=== PATIENT | female | born 1950 | race Caucasian/White ===

== ENCOUNTER 2016-07-21 14:47 | Outpatient (CLI) | payer MEDICARE ==
[~2016-07-21] VITALS: Ht 165.1 cm; Wt 107.0 kg
[~2016-07-21 14:47] MED LIST: ALPR1TAB72 PO; ALPR2TAB2 PO; ASPI-875 PO; BNZ10T PO; CITA-105 PO; ESTR1TAB24 PO; GBPN300C PO; HYDR-3583 PO; LOVA20TA2 PO; METO10TA3 PO; NTR.4SL SL; ZLP10T PO
[2016-07-21 14:53] VITALS: BP 118/72
== END 2016-07-21 15:02 | disposition home or self-care (01) ==
LOC: PREOP 14:47
PROVIDERS: ATTEND Urology
DX: Z01.818 Encounter for other preprocedural examination (principal); Z11.2 Encounter for screening for other bacterial diseases; N36.42 Intrinsic sphincter deficiency (ISD); R32 Unspecified urinary incontinence; N32.81 Overactive bladder
CPT/HCPCS: 87081

== ENCOUNTER 2016-07-30 06:25 | Day surgery (SDC) | payer MEDICARE ==
[~2016-07-30] VITALS: Ht 165.1 cm; Wt 107.0 kg
[2016-07-30] MEDS ORDERED: LACTATED RINGERS 1,000 ML IV PRN (06:36)
[2016-07-30] MEDS ORDERED: FAMOTIDINE 20MG/2ML IV (PEPCID) IV ONE (06:45)
[2016-07-30] MEDS ORDERED: proPOfol 200 MG/20 ML (DIPRIVAN) VIAL IV ONE (06:46)
[2016-07-30] MEDS ORDERED: ONDANSETRON 4 MG/2 ML (SDV) Z0FRAN ONE (06:46)
[2016-07-30] MEDS ORDERED: LIDOCAINE PF 2% 10 ML (XYLOCAINE) AMP ONE (06:46)
[2016-07-30] MEDS ORDERED: LIDOCAINE JELLY 2% (XYLOCAINE) 5 ML TUBE ONE (06:46)
[2016-07-30] MEDS ORDERED: ROCURONIUM 50 MG/5 ML (ZEMURON) VIAL IV ONE (06:46)
[2016-07-30] MEDS ORDERED: fentaNYL INJECTION 100 MCG/2 ML AMP ONE (06:47)
[2016-07-30] MEDS ORDERED: MIDAZOLAM 2 MG/2 ML (VERSED) VIAL ONE (06:47)
[2016-07-30] MEDS ORDERED: NS (IVPB) 50 ML ONE (06:48)
[2016-07-30] MEDS ORDERED: cefTRIAXone 1 GM (ROCEPHIN) VIAL ONE (06:48)
--- NOTE | 2016-07-30 07:05 | Progress Note-Pre Operative ---
Pre-Operative Progress Note H&P Reviewed The H&P was reviewed, patient examined and no changes noted. Date H&P Reviewed: Jul 30, 2016 Time H&P Reviewed: 07:05 Pre-Operative Diagnosis: MIXED INCONTINENCE, OAB, ISD MARTHA FORRESTER MD Jul 30, 2016 7:05 am
--- NOTE | 2016-07-30 07:06 | Progress Note-Post Operative ---
Post-Operative Progess Note Surgeon (s)/Chute Operator (s) Surgeon MARTHA FORRESTER MD Chute Operator: N/A Pre-Operative Diagnosis MIXED INCONTINENCE, OAB, ISD Post-Operative Diagnosis SAME Post-Op Procedure Note Date of Procedure: Jul 30, 2016 Name of Procedure Performed: MACROPLASTIQUE IMPLANT Description of the Procedure: PER DICTATION Findings of the Procedure SAME Anesthesia Type GENERAL Estimated blood loss (mL): NEGLIGIBLE Specimen(s) collected/removed NONE MARTHA FORRESTER MD Jul 30, 2016 7:06 am
--- NOTE | 2016-07-30 07:08 | Discharge Inst-Urology ---
Discharge Inst-Urology Discharge Medications New, Converted, or Re-newed RX: RX on Chart Patient Instructions/Follow Up Plan Please make appointment to been seen in office in 4 weeks. If in 48hrs, no bleeding, may resume ASA Increase oral fluids for 48 hours and then as needed. Diet and Activity as tolerated. If questions or concerns contact your physician Or seek help at emergency department. MARTHA FORRESTER MD Jul 30, 2016 7:08 am
[2016-07-30] MEDS ORDERED: cefTRIAXone 1 GM/NS 50 ML IVPB IV ONE ×2 (07:15)
[2016-07-30] MEDS ORDERED: SEVOFLURANE (ULTANE) 15 ML INHAL SOLN ONE (07:29)
[2016-07-30 07:44] VITALS: BP 135/73
[2016-07-30] MEDS ORDERED: ONDANSETRON 4 MG/2 ML (SDV) Z0FRAN IVP PRN (07:45)
[2016-07-30] MEDS ORDERED: morphine INJ 10 MG/ML 1ML (SYR OR VIAL) IVP PRN (07:45)
[2016-07-30 08:40] VITALS: BP 142/73
[2016-07-30 09:10] VITALS: BP 135/73
[2016-07-30] MEDS ORDERED: NITR-65 PO (09:37)
[2016-07-30] MEDS ORDERED: PHEN-640 PO (09:37)
[2016-07-30 09:40] VITALS: BP 142/69
--- NOTE | 2016-07-30 11:22 | OPERATIVE REPORT ---
PROCEDURE PHYSICIAN: MARTHA FORRESTER DATE OF PROCEDURE: 07/30/2016 PREOPERATIVE DIAGNOSIS: Urinary incontinence with overactive bladder and ISD. POSTOPERATIVE DIAGNOSIS: Urinary incontinence with overactive bladder and ISD. OPERATION: Macroplastique implant. SURGEON: Lexx. ANESTHESIA: General. COMPLICATIONS: None. PROCEDURE: Under satisfactory general anesthesia, the patient in lithotomy position, the genitalia were prepped and draped in usual sterile fashion. Cystoscope was introduced under vision and the Macroplastique implant was injected with a full syringe at 6 o'clock position and half a syringe at each of 2 and 10 o'clock positions. There was excellent coaptation of the mid urethra with no extravasation of the implant and no bleeding; it was injected using the described technique. The bladder was evacuated and cystoscope was removed. The patient tolerated the procedure and anesthesia well and was sent to recovery room in stable condition. Job ID: [id number] Dictated Date: 07/30/2016 07:40:22 Box Toe Cutter Date: 07/30/2016 11:20:02 / chuck
== END 2016-07-30 09:57 | disposition home or self-care (01) ==
LOC: SDC 06:25
PROVIDERS: ATTEND Urology
DX: N36.42 Intrinsic sphincter deficiency (ISD) (principal); R32 Unspecified urinary incontinence; N32.81 Overactive bladder

== ENCOUNTER 2016-11-05 05:40 | Outpatient (CLI) | payer MEDICARE ==
[~2016-11-05] VITALS: Ht 165.1 cm; Wt 98.4 kg
[~2016-11-05 05:40] MED LIST changes: +NITR-65 PO; +PHEN-640 PO
[2016-11-05] MEDS ORDERED: CITA20TA7 PO (13:32)
[2016-11-05] MEDS ORDERED: ALPR1TAB7 PO (13:32)
[2016-11-05] MEDS ORDERED: PANT40TA3 PO (13:32)
== END 2016-11-05 14:35 ==
LOC: PREOP 05:40
PROVIDERS: ATTEND Surgery
DX: Z01.818 Encounter for other preprocedural examination (principal); R19.4 Change in bowel habit; R63.4 Abnormal weight loss

== ENCOUNTER 2016-11-07 12:17 | Day surgery (SDC) | payer MEDICARE ==
[~2016-11-07] VITALS: Ht 165.1 cm; Wt 98.4 kg
[~2016-11-07 12:17] MED LIST changes: +ALPR1TAB7 PO; +CITA20TA7 PO; +PANT40TA3 PO
[2016-11-07] MEDS ORDERED: NS IV 500 ML 500 ML ONE ×2 (12:18→13:08)
[2016-11-07] MEDS ORDERED: NS IV 500 ML 500 ML IV PRN (12:30)
--- NOTE | 2016-11-07 12:36 | Progress Note-Pre Operative ---
Pre-Operative Progress Note H&P Reviewed The H&P was reviewed, patient examined and no changes noted. Date Seen by Provider: Nov 07, 2016 Time Seen by Provider: 12:00 Date H&P Reviewed: Nov 07, 2016 Time H&P Reviewed: 12:00 Pre-Operative Diagnosis: weight loss, GERD WAYNE AVILA MD Nov 07, 2016 12:36 pm
--- NOTE | 2016-11-07 12:36 | Conscious Sedation/ASA ---
Conscious Sedation Pre-Proced Time Reviewed: 12:00 ASA Class: 2 Airway Mallampati Classification: ([place] appropriate class) I. II. III, IV Lungs Heart ASA score ASA 1: a normal healthy patient ASA 2: a patient with a mild systemic disease (mid diabetes, controlled hypertension, obesity ASA 3: a patient with a severe systemic disease that limits activity (angina , COPD, prior Myocardial infarction) ASA 4: a patient with an incapacitating disease that is a constant threat to life (CHF, renal failure) ASA 5: a moribund patient not expected to survive 24 hrs. (ruptured aneurysm) ASA 6: a declared brain patient whose organs are being harvested. For emergent operations, add the letter E after the classification Grade 3 Sedation Plan: Analgesia, Amnesia, Plan communicated to team members, Discussed options with patient/fam, Discussed risks with patient/fam Note The patient is an appropriate candidate to undergo the planned procedure, sedation, and anesthesia. The patient immediately re-assessed prior to indication. WAYNE AVILA MD Nov 07, 2016 12:36 pm
[2016-11-07] MEDS ORDERED: fentaNYL INJECTION 100 MCG/2 ML AMP ONE ×2 (12:41)
[2016-11-07] MEDS ORDERED: LIDOCAINE JELLY 2% (XYLOCAINE) 5 ML TUBE ONE (12:41)
[2016-11-07] MEDS ORDERED: MIDAZOLAM 2 MG/2 ML (VERSED) VIAL ONE ×6 (12:42)
[2016-11-07] MEDS ORDERED: HURRICAINE EXT TUBE (BENZOCAINE) ONE (12:42)
[2016-11-07] MEDS ORDERED: HURRICAINE EXT TUBE (BENZOCAINE) XX PRN (12:45)
[2016-11-07] MEDS ORDERED: morphine INJ 10 MG/ML 1ML (SYR OR VIAL) IV PRN (12:45)
[2016-11-07] MEDS ORDERED: HYDROcodone/APAP 5 MG/325 MG (LORTAB) TAB PO PRN (12:45)
[2016-11-07] MEDS ORDERED: ACETAMINOPHEN 325 MG TABLET/CAPLET (TYLENOL) PO PRN (12:45)
[2016-11-07] MEDS ORDERED: ONDANSETRON 4 MG/2 ML (SDV) Z0FRAN IV PRN (12:45)
[2016-11-07] MEDS ORDERED: LIDOCAINE JELLY 2% (XYLOCAINE) 5 ML TUBE MM PRN (12:45)
[2016-11-07] MEDS: MIDAZOLAM 2 MG/2 ML (VERSED) VIAL IVP PRN ×3 (12:50→13:05)
[2016-11-07] MEDS: fentaNYL INJECTION 100 MCG/2 ML AMP IVP PRN ×4 (12:51→13:10)
[2016-11-07 13:09] VITALS: BP 138/90
--- NOTE | 2016-11-07 13:45 | Progress Note-Post Operative ---
Post-Operative Progess Note Surgeon (s)/Briar Wood Sorter (s) Surgeon WAYNE AVILA MD Briar Wood Sorter: none Pre-Operative Diagnosis weight loss, GERD Post-Operative Diagnosis esophageal varices, reflux eosphagitis(class B), gastric pouchitis, bile reflux, normal gastro-enteric anastomosis, no distal obstructions. chronic stage 2 ext and int hemorrhoids, moderate sigmoid diverticulosis, proximal colonic-enteric anastomosis vs. fistula. Procedure & Operative Findings Date of Procedure 11/07/16 Procedure Performed/Findings EGD with bx. Colonoscopy. Anesthesia Type CS Estimated Blood Loss Estimated blood loss (mL): minimal Specimens/Packing Specimens Removed GE jxn, antrum WAYNE AVILA MD Nov 07, 2016 13:45
[2016-11-07] MEDS ORDERED: CHOL4PAC16 PO (13:48)
--- NOTE | 2016-11-07 13:49 | Discharge Inst-Surgical ---
D/C Lap Instructions-KIDO New, Converted, or Re-Newed RX: RX on Chart Follow Up PRN Activity as tolerated High Fiber Diet 25g or more per day Avoid Alcohol, Caffeine, Spicy [place] and Acid foods. Drink 64 fluid oz or more of fluids per day. Symptoms to Report: Fever over 101 degree F, Nausea/Vomiting If any problems/questions: Contact your physician or go to Emergency Room WAYNE AVILA MD Nov 07, 2016 13:49
[2016-11-07 13:50] VITALS: BP 173/84
[2016-11-07 14:20] VITALS: BP 173/84
[2016-11-07 14:30] VITALS: BP 173/84
--- NOTE | 2016-11-10 07:51 | PROCEDURE REPORT ---
PROCEDURE PHYSICIAN: WAYNE LOPEZ DATE OF PROCEDURE: 11/07/2016 PRIMARY PHYSICIAN: Dr. Colton Santos. PRINCIPAL DIAGNOSIS: Gastroesophageal reflux disease, weight loss. POSTOPERATIVE DIAGNOSES: 1. Esophageal varices. 2. Reflux esophagitis, class B. 3. Gastric pouchitis gastritis. 4. Normal gastrojejunal anastomosis with no stricture. 5. Chronic, stage II external and internal hemorrhoids. 6. Moderate sigmoid diverticulosis. 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 PROCEDURE: 1. EGD with biopsy. 2. Colonoscopy. SURGEON: Dr. Lopez. ANESTHESIA: Conscious sedation. ESTIMATED BLOOD LOSS: Minimal. FINDINGS: 1. Esophageal varices of the mid portion of the esophagus. 2. Reflux esophagitis, class B. 3. No ulcers or strictures. 4. Relatively large gastric pouch with a gastric pouchitis, no formal ulcers, gastrojejunal anastomosis appeared normal. There appeared to be bile reflux during the procedure, which may indicate a bile acid gastritis and reflux esophagitis. The efferent rim appeared to be widely patent with no marginal ulcerations or strictures. COLONOSCOPY: 1. Chronic, stage II external and internal hemorrhoids, not actively edematous or inflamed and no bleeding. 2. Moderate sigmoid diverticulosis with no signs of diverticulitis. 3. There its coloenteric anastomosis, which may have been from her previous Timoteo shunt in the . However, this could also be abnormal fistulization. DISPOSITION: The patient tolerated procedure well. BRIEF HISTORY: Ms. Teresa Arevalo is a 66-year-old female referred over to us for change in bowel habits including weight loss, abdominal pain, reflux and regurgitation. She has had gastrointestinal issues for some amount of time however, this has worsened in the past 6 weeks. She had the Timoteo shunt in [place], [place] in the and we are unsure what the procedure was. We do know that this was an open procedure and she states that she did lose a significant amount weight; however, did regained some weight back over time. She reports that she has had a long-standing history of reflux soon after the surgery. She does not report any red blood per rectum or any dark tarry stools. However has had looser stools in the past several months. PAST MEDICAL HISTORY: 1. Coronary artery disease. 2. Depression. 3. Gastroesophageal reflux disease. 4. Hypertension. 5. Hyperlipidemia. 6. Nephrolithiasis. 7. Chronic low back pain. 8. Short-term memory loss. PAST SURGERIES: 1. Timoteo shunt early . 2. Complete hysterectomy. 3. Laparoscopic cholecystectomy 1989. 4. Bladder sling. 5. Small bowel resection for bowel obstruction 5 years ago. ALLERGIES: TETRACYCLINE MEDICATIONS: 1. Zopitan 10 mg daily. 2. Xanax 1 mg b.i.d. 3. Citalopram 40 mg daily. 4. Lovastatin 20 mg daily. 5. Benazepril 10 mg daily. 6. Estradiol 1 mg daily. 7. Protonix 40 mg daily. SOCIAL HISTORY: Negative smoke. Negative alcohol. FAMILY HISTORY: Mother, insulin-dependent diabetes and myocardial infarction age 72, father hypertension and prostate cancer, myocardial infarction age 50, sister diabetes, hypertension. Brother diabetes, stroke in his 60s, myocardial infarction age 55. PROCEDURE: The patient was brought to the endoscopy suite, laid in the left lateral decubitus position. After adequate IV pain and sedative medications and conscious sedation anesthesia, the mouthpiece was applied. The endoscope was placed in the mouth, visualizing the pharynx and hypopharyngeal region. Vocal cords, epiglottis and vallecula identified to be normal. The endoscope was then gently intubated the esophageal opening and the esophagus insufflated. There appeared to be mild to moderate varices of the midportion as well as distal portion of the esophagus. No active bleeding identified. The GE junction appeared to be intact with reflux esophagitis, class B. There were no ulcers or strictures identified in this region, as well as no varices in this region. A biopsy was taken with forceps with visualization of good hemostasis. The endoscope was then advanced into the gastric pouch where significantly larger gastric polyps identified. There was also pouch gastritis; however, no formal ulcers identified. The gastrojejunal anastomosis was widely patent with no marginal ulcerations and this was intubated with no distal obstructions. During the process of there was a significant amount of bile reflux into the gastric pouch, which may indicate bile acid gastritis and reflux esophagitis. A biopsy was taken of the stomach antrum, with forceps with visualization of good hemostasis. The endoscope was then slowly withdrawn while taking a second look and suctioning of residual air with no additional findings. The patient tolerated this portion the procedure well. We will have her continue with medical management with the necessary lifestyle and diet accommodation including smaller, more frequent meals, avoidance of eating at night, as well as head elevation while laying supine. She also needs to avoid caffeinated beverages, spicy, greasy and acidic foods. We will instruct to have her continue her Protonix, however, appears that she does have a bile acid gastritis. We are unsure of the previous Timoteo shunt procedure; however, it appears if her symptoms persist she will need some form of Alison-en-Y anastomosis. Under the same conscious sedation anesthesia, we then proceeded with the colonoscopy portion the procedure. A digital rectal examination was performed, which revealed chronic, stage II external and internal hemorrhoids which were not actively edematous or inflamed and no bleeding. Normal sphincter tone was felt and there were no palpable masses. The endoscope was then intubated into the anus and the rectum gently insufflated. The endoscope was then advanced through the valves of [place] the rectum with no polyps or any neoplasms identified. We then proceeded through the sigmoid colon where a moderate sigmoid diverticulosis identified. There were no mucosal inflammatory changes to indicate any active diverticulitis. The endoscope was then advanced through the remainder of the descending, transverse, and ascending colon to the cecum. Just proximal to the cecum along the ascending colon was what appeared to be some form of gastro-enteric anastomosis. This may have been due to her previous Timoteo's shunt procedure, however she did have some form of small bowel obstruction requiring resection and anastomosis that may be related to a drainage procedure to this. Due to her only comorbidities, as well as multiple major surgeries we will recommend conservative management for now with recommendation of smaller, more frequent meals and avoidance of eating at night, as well as a high fiber diet with at least 25 to 30 grams of fiber per day to promote soft stools on a daily basis. We will also schedule an upper GI contrast study to map out her upper gastrointestinal anatomy, which we are unsure of at this time. Job ID: [id number] Dictated Date: 11/07/2016 13:37:18 Customs Import Specialist Date: 11/10/2016 07:22:13 / chuck [email or web address]
== END 2016-11-07 14:30 | disposition home or self-care (01) ==
LOC: ENDO 12:17
PROVIDERS: ATTEND Surgery
DX: K57.30 Diverticulosis of large intestine without perforation or abscess without bleeding (principal); K63.2 Fistula of intestine; K64.1 Second degree hemorrhoids; K21.0 Gastro-esophageal reflux disease with esophagitis; I85.00 Esophageal varices without bleeding; K91.850 Pouchitis; K29.70 Gastritis, unspecified, without bleeding; K31.7 Polyp of stomach and duodenum; I25.10 Atherosclerotic heart disease of native coronary artery without angina pectoris; F32.9 Major depressive disorder, single episode, unspecified; I10 Essential (primary) hypertension; E78.5 Hyperlipidemia, unspecified; Z79.899 Other long term (current) drug therapy

== ENCOUNTER → 2016-11-18 | Outpatient (CLI) | payer MEDICARE ==
[~2016-11-18] MED LIST changes: +BARIUM SUSPENSION 105% (LIQUID POLIBAR PLUS) 240 ML/DOSE PO ONE; +BARIUM SUSPENSION 60% (LIQUID EZ PAQUE) 240 ML DOSE PO ONE; +CHOL4PAC16 PO
--- NOTE | 2016-11-18 12:49 | Diagnostic Imaging Report ---
EXAMINATION: Upper GI study with small bowel follow-through, double contrast. TECHNIQUE: A channel development director image of the abdomen was performed. After the oral administration of gas forming granules, the patient drank thick and thin barium with visualization under fluoroscopy including spot images taken over the esophagus, stomach, and duodenum followed by overhead images in the chest and abdomen. Serial images of the small bowel were performed at different time intervals as contrast reached the colon. INDICATION: Weight loss. FLUOROSCOPY TIME: 1 minutes and 32 seconds. FINDINGS: Screw Machine Operator images of the abdomen demonstrate a small amount of fecal material. Surgical sutures are also seen. The esophagus is normal in caliber. There are mild occasional tertiary contractions and slight peristaltic dysfunction, compatible with mild motility disorder, commonly seen at the patient's age. There is no suspicious filling defect or evidence of ulcer. The stomach demonstrates prior gastrojejunostomy. The barium appears to preferentially initially fill the gastrojejunostomy; however, it also freely extends into the distal stomach and eventually fills and distends the stomach. The proximal duodenum is also seen and appears normal. There is a normal appearance of the small bowel loops seen with the appearance of filling of the cecum at 1 hour and 15 minutes after initial drinking of the barium. There is no suspicious filling defect or evidence of ulcer. IMPRESSION: Mild esophageal motility dysfunction. Patent gastrojejunostomy. Dictated by: Dictated on workstation # [id number]
== END ==
LOC: RAD 08:30
PROVIDERS: ATTEND Surgery
DX: R19.7 Diarrhea, unspecified (principal); K21.9 Gastro-esophageal reflux disease without esophagitis; R63.4 Abnormal weight loss; Z98.0 Intestinal bypass and anastomosis status
CPT/HCPCS: 74249

== ENCOUNTER → 2017-02-12 | Outpatient (CLI) | payer MEDICARE ==
[~2017-02-12] MED LIST changes: -BARIUM SUSPENSION 105% (LIQUID POLIBAR PLUS) 240 ML/DOSE PO ONE; -BARIUM SUSPENSION 60% (LIQUID EZ PAQUE) 240 ML DOSE PO ONE
--- NOTE | 2017-02-12 13:52 | Diagnostic Imaging Report ---
Bilateral diagnostic mammogram with tomography. CAD is utilized. INDICATION: Lateral right breast pain. COMPARISON: 07/06/2014. FINDINGS: The breasts are composed of scattered fibroglandular densities. There are scattered punctate calcifications seen. Allowing for technique and positional differences, no suspicious change is seen. IMPRESSION: No mammographic evidence of malignancy. Ultrasound evaluation pending. ACR BI-RADS Category 0: Incomplete. (Needs additional imaging evaluation). Result letter will be mailed to the patient. Note: At least 10% of breast cancer is not imaged by mammography. Dictated by: Dictated on workstation # [id number]
--- NOTE | 2017-02-12 14:29 | Diagnostic Imaging Report ---
EXAM: Right breast ultrasound. INDICATION: Right breast pain in the lateral aspect. FINDINGS: The outer aspect of the right breast around the area of pain was scanned with no underlying abnormality seen. IMPRESSION: Negative study. Clinical followup is recommended. BI-RADS 1. ACR BI-RADS Category 1: Negative. Result letter will be mailed to the patient. Note: At least 10% of breast cancer is not imaged by mammography. Dictated by: Dictated on workstation # [id number]
== END ==
LOC: RAD 12:58
PROVIDERS: ATTEND Internal Medicine
DX: Z12.31 Encounter for screening mammogram for malignant neoplasm of breast (principal); N64.4 Mastodynia
CPT/HCPCS: 77066

== ENCOUNTER → 2017-03-04 | Outpatient (CLI) | payer MEDICARE ==
--- NOTE | 2017-03-04 12:58 | Diagnostic Imaging Report ---
INDICATION: Shortness of breath, bronchospasms. COMPARISON: 01/09/2009 FINDINGS: Frontal and lateral views of the chest demonstrate normal heart size and pulmonary vascularity. The lungs are clear. There are no signs of infiltrate, pleural effusions or pneumothoraces. The visualized osseous structures show no acute abnormalities. IMPRESSION: 1. No acute process. No signs of infiltrates, effusions or pneumothoraces. Dictated by: Dictated on workstation # [id number]
== END ==
LOC: RAD 11:49
PROVIDERS: ATTEND Nurse Practitioner
DX: R06.02 Shortness of breath (principal); J98.01 Acute bronchospasm
CPT/HCPCS: 71020

== ENCOUNTER → 2017-10-08 | Outpatient (CLI) | payer MEDICARE ==
[~2017-10-08] MED LIST changes: +CATHETER FLUSH 10 ML SYR IV PRN; -CITA20TA7 PO; +CITA20TA9 PO; +IOHEXOL 350 MG/ML 100 ML (OMNIPAQUE 350) VIAL IV ONE; +NS 250 ML (IVPB) BAG IV ONE; +RECEIVED CONTRAST (Hold Metformin) IV SCH
[2017-10-08 12:39] LABS: BUN/CREATININE RATIO 23; GFR ESTIMATED > 60
--- NOTE | 2017-10-08 14:06 | Diagnostic Imaging Report ---
PROCEDURE: CT abdomen and pelvis with and without contrast. TECHNIQUE: Precontrast acquisitions were acquired through the abdomen and pelvis. Multiple contiguous axial images were obtained through the abdomen and pelvis after the administration of intravenous contrast. INDICATION: Abdominal pain with nausea, vomiting, and diarrhea. COMPARISON: No prior studies are available for comparison. FINDINGS: The lung bases are clear. There are postop changes to the stomach. No discrete liver mass is seen. The gallbladder is surgically absent. The pancreas and spleen are unremarkable. No adrenal mass is detected. Kidneys are unremarkable apart from a cyst in the lower pole of the right kidney measuring 2.7 cm. The aorta is nonaneurysmal. No central retroperitoneal or mesenteric lymphadenopathy is seen. There appear to be postsurgical changes in the midline anterior abdominal wall. There is a right paramidline ventral hernia present. Bowel loops do extend into the subcutaneous tissues. The defect appears to be approximately 3 cm in transverse dimension. No definite findings to suggest bowel obstruction or strangulation are seen. There is no bowel wall thickening identified. No free fluid or free air is detected. Bladder is decompressed. There is sigmoid diverticulosis but no evidence of acute diverticulitis. IMPRESSION: 1. Right paramidline ventral hernia containing bowel loops. No definite bowel obstruction is identified, however. 2. Uncomplicated diverticulosis. Dictated by: Dictated on workstation # [id number]
== END ==
LOC: RAD 11:37
PROVIDERS: ATTEND Internal Medicine Gastroenterology
DX: K43.9 Ventral hernia without obstruction or gangrene (principal); K57.30 Diverticulosis of large intestine without perforation or abscess without bleeding
CPT/HCPCS: 36415; 74178; 82565; 84520

== ENCOUNTER 2017-11-24 08:43 | Outpatient (CLI) | payer MEDICARE ==
[~2017-11-24] VITALS: Ht 165.1 cm; Wt 83.6 kg
[~2017-11-24 08:43] MED LIST changes: -CATHETER FLUSH 10 ML SYR IV PRN; -IOHEXOL 350 MG/ML 100 ML (OMNIPAQUE 350) VIAL IV ONE; -NS 250 ML (IVPB) BAG IV ONE; -RECEIVED CONTRAST (Hold Metformin) IV SCH
[2017-11-24 08:58] VITALS: BP 114/65
[2017-11-24] MEDS ORDERED: ZOLP10TA5 PO (08:58)
[2017-11-24] MEDS ORDERED: BENA10TA7 PO (08:58)
[2017-11-24] MEDS ORDERED: ASPI-808 PO (08:58)
[2017-11-24] MEDS ORDERED: LOVA20TA2 PO (08:58)
[2017-11-24 09:43] LABS: BASOPHILS % (AUTO) 1 % (0-10); EOSINOPHILS # (AUTO) 0.2 10^3/uL (0.0-0.3); EOSINOPHILS % (AUTO) 3 % (0-10); HEMATOCRIT 38 % (35-52); HEMOGLOBIN 13.2 G/DL (11.5-16.0); LYMPHOCYTES # (AUTO) 1.7 X 10^3 (1.0-4.0); LYMPHOCYTES % (AUTO) 30 % (12-44); MEAN CORPUSCULAR HEMOGLOBIN 29 PG (25-34); MEAN CORPUSCULAR HGB CONC 35 G/DL (32-36); MEAN CORPUSCULAR VOLUME 85 FL (80-99); MEAN PLATELET VOLUME 10.1 FL (7.4-10.4); MONOCYTES # (AUTO) 0.5 X 10^3 (0.0-1.0); MONOCYTES % (AUTO) 9 % (0-12); NEUTROPHILS # (AUTO) 3.2 X 10^3 (1.8-7.8); NEUTROPHILS % (AUTO) 58 % (42-75); PLATELET COUNT 276 10^3/uL (130-400); RED BLOOD COUNT 4.52 10^6/uL (4.35-5.85); RED CELL DISTRIBUTION WIDTH 14.6 % (10.0-14.5); WHITE BLOOD COUNT 5.6 10^3/uL (4.3-11.0)
[2017-11-26] MEDS ORDERED: HYDR-34 PO (14:00)
== END 2017-11-24 09:50 | disposition home or self-care (01) ==
LOC: PREOP 08:43
PROVIDERS: ATTEND Surgery
DX: Z01.812 Encounter for preprocedural laboratory examination (principal); Z11.2 Encounter for screening for other bacterial diseases; K43.2 Incisional hernia without obstruction or gangrene; R11.2 Nausea with vomiting, unspecified
CPT/HCPCS: 36415; 85025; 87081

== ENCOUNTER 2017-11-26 08:21 | Day surgery (SDC) | payer MEDICARE ==
[~2017-11-26] VITALS: Ht 165.1 cm; Wt 83.6 kg
[~2017-11-26 08:21] MED LIST changes: +ASPI-808 PO; +BENA10TA7 PO; +ZOLP10TA5 PO
--- NOTE | 2017-11-26 08:51 | Progress Note-Pre Operative ---
Pre-Operative Progress Note H&P Reviewed The H&P was reviewed, patient examined and no changes noted. Date Seen by Provider: Nov 26, 2017 Time Seen by Provider: 08:45 Date H&P Reviewed: Nov 26, 2017 Time H&P Reviewed: 08:45 Pre-Operative Diagnosis: ventral abdominal incisional hernia, weight loss WAYNE AVILA MD Nov 26, 2017 8:51 am
[2017-11-26 09:00] VITALS: BP 118/91
[2017-11-26] MEDS ORDERED: ceFAZolin INJECTION 1,000 MG in NS (IVPB) 50 ML IV ONE (09:00)
[2017-11-26] MEDS ORDERED: oxyCODONE/APAP 5/325MG (PERCOCET 5) TABLET PO PRN (09:00)
[2017-11-26] MEDS ORDERED: ONDANSETRON 4 MG/2 ML (SDV) Z0FRAN IVP PRN ×2 (09:00→14:45)
[2017-11-26] MEDS ORDERED: morphine INJ 10 MG/ML 1ML (SYR OR VIAL) IVP PRN (09:00)
[2017-11-26] MEDS ORDERED: ACETAMINOPHEN 325 MG TABLET PO PRN (09:00)
[2017-11-26] MEDS: LACTATED RINGERS 1,000 ML IV PRN ×2 (09:14→12:24)
--- OUTSIDE RECORDS SUMMARY | 2017-11-26 10:26 | XMS REPORT ---
Author Author Dave Siddiqui Organization [facility] Address [address] [place], [place] [id number] Care Team Providers Care Chopper Operator Name Role Phone Dave Siddiqui PCP Allergies and Adverse Reactions Name Reaction Notes TETRACYCLINES Plan of Treatment Not available. Medications Active Name Start Date Estimated Completion Date SIG Comments benazepril 20 mg oral tablet take 1 tablet (20 mg) by oral route once daily lovastatin 10 mg oral tablet take 1 tablet (10 mg) by oral route once daily with evening meal zolpidem 10 mg oral tablet take 1 tablet by oral route daily Celexa 20 mg oral tablet take 1 tablet (20 mg) by oral route once daily Reglan 10 mg oral tablet 11/03/2011 take 1 tablet (10 mg) by oral route 4 times per day 30 minutes before meals and at bedtime alprazolam 1 mg oral tablet take 1 tablet (1 mg) by oral route 3 times per day pantoprazole 40 mg oral tablet,delayed release (DR/EC) take 1 tablet ( 40 mg) by oral route once daily Medrol (Albino) 4 mg oral tablets,dose pack 08/23/2017 take as directed Tessalon Perles 100 mg oral capsule 08/23/2017 take 1 capsule (100 mg) by oral route 3 times per day as needed for cough Name Start Date Expiration Date SIG Comments diclofenac sodium 75 mg oral tablet,delayed release (DR/EC) 04/02/20092009 take 1 tablet by oral route 2 times a day for 30 days misoprostol 200 mcg oral tablet 04/02/2009 07/31/2009 take 1 tablet (200 mcg ) by oral route 2 times per day with meals for 30 days Voltaren 1 % topical gel 05/22/2009 10/19/2009 apply 4 gram to affected area(s) by topical route 4 times per day for 30 days Pepcid 40 mg oral tablet 07/09/2011 08/08/2011 take 1 tablet (40 mg) by oral route once daily at bedtime for 30 days Lortab 5-500 mg oral tablet 08/16/2011 09/05/2011 take 1-2 tablets by oral route every 4 hours as needed for 10 days for pain Augmentin 875-125 mg oral tablet 05/25/2017 take 1 tablet by oral route every 12 hours for 7 days Bactrim DS 800-160 mg oral tablet 06/11/2017 take 1 tablet by oral route every 12 hours for 10 days amoxicillin 500 mg oral capsule 08/03/2017 08/10/2017 take 1 capsule (500 mg) by oral route every 8 hours for 7 days levofloxacin 500 mg oral tablet 08/23/2017 09/02/2017 take 1 tablet (500 mg) by oral route once daily for 10 days Discontinued Name Start Date Discontinued Date SIG Comments benztropine 2 mg oral tablet 07/09/2011 take 1 tablet (2 mg) by oral route once daily Lexapro 20 mg oral tablet 07/09/2011 take 1 tablet (20 mg) by oral route once daily Tylenol PM 25-500 mg-mg/mL oral solution 07/09/2011 take 2 milliliters by oral route Prilosec 40 mg oral capsule,delayed release(DR/EC) 11/03/2011 02/15/2017 take 1 capsule by oral route daily bethanechol chloride 25 mg oral tablet 02/15/2017 take 1 tablet (25 mg) by oral route 2 times per day on an empty stomach, 1 hour before or 2 hours after a meal Augmentin 875-125 mg oral tablet 02/15/2017 05/25/2017 take 1 tablet by oral route every 12 hours for 7 days Macrobid 100 mg oral capsule 06/11/2017 06/11/2017 take 1 capsule (100 mg) by oral route every 12 hours with food for 7 days Expensive, $40 co pay Problem List Description Status Onset Arthritis unspecified Active 1977 Hypertension Active 1979 Thyroid disorder Active Vital Signs Date Time BP-Sys(mm[Hg] BP-Felisa(mm[Hg]) HR(bpm) RR(rpm) Temp WT HT HC BMI BSA BMI Percentile O2 Sat(%) 08/23/2017 1:29:00 PM 124 mmHg 84 mmHg 83 bpm 98.2 F 194.25 lbs 93 % 08/14/2017 5:12:00 PM 116 mmHg 80 mmHg 72 bpm 16 rpm 97.5 F 202 lbs 65 in 33.6142 kg/m 2.0499 m 96 % 08/03/2017 5:11:00 PM 123 mmHg 77 mmHg 98 bpm 29 rpm 99 F 200.375 lbs 65 in 33.34 kg/m2 2.04 m2 97 % 06/11/2017 5:10:00 PM 128 mmHg 78 mmHg 77 bpm 16 rpm 97.5 F 206 lbs 65 in 34.2798 kg/m 2.0701 m 96 % 05/25/2017 5:17:00 PM 106 mmHg 63 mmHg 78 bpm 18 rpm 97.4 F 204 lbs 65 in 33.95 kg/m2 2.06 m2 94 % 02/15/2017 1:23:00 PM 130 mmHg 76 mmHg 78 bpm 20 rpm 98.4 F 205 lbs 65 in 34.1134 kg/m 2.0651 m 96 % 03/02/2015 10:57:00 AM 220 lbs 65 in 36.61 kg/m2 2.14 m2 11/03/2011 1:07:00 PM 100 mmHg 80 mmHg 76 bpm 18 rpm 96.1 F 189 lbs 63 in 33.4795 kg/m 1.9521 m 97 % 08/12/2011 1:38:00 PM 96 mmHg 60 mmHg 70 bpm 18 rpm 96.2 F 193 lbs 65 in 32.12 kg/m2 2.00 m2 98 % 07/23/2011 2:45:00 PM 100 mmHg 60 mmHg 66 bpm 18 rpm 96.3 F 195 lbs 65 in 32.4494 kg/m 2.0141 m 98 % 07/09/2011 10:26:00 AM 110 mmHg 60 mmHg 76 bpm 18 rpm 96.5 F 197 lbs 65 in 32.78 kg/m2 2.02 m2 98 % 05/14/2009 11:26:00 AM 110 mmHg 80 mmHg 68 bpm 97.8 F 221.375 lbs 04/02/2009 11:02:00 AM 110 mmHg 70 mmHg 76 bpm 16 rpm 04/02/2009 9:59:00 AM 122 mmHg 80 mmHg 80 bpm 16 rpm 97.5 F 226 lbs Social History Name Description Comments Housing [place] in a [place] Lives with spouse 43 years disabeled Completed some high school 9th grade Tobacco Former smoker Alcohol Never Denies illicit substance abuse Did not serve History of Procedures Date Ordered Description Order Status 05/14/2009 12:00 AM Kenalog 40 Mg Im-Ndc#9650-0647-51 Reviewed 05/14/2009 12:00 AM HOT OR COLD PACKS THERAPY Reviewed 07/23/2011 12:00 AM COMPLETE CBC W/AUTO DIFF WBC Reviewed 07/23/2011 12:00 AM COMPREHEN METABOLIC PANEL Reviewed 07/23/2011 12:00 AM X-RAY UPPER GI&SMALL INTEST Reviewed 06/11/2017 6:28 PM URINALYSIS AUTO W/O SCOPE Reviewed 06/11/2017 12:00 AM URINE CULTURE/COLONY COUNT Reviewed 08/14/2017 8:44 PM URINALYSIS AUTO W/O SCOPE Reviewed 09/17/2017 12:00 AM NO CHARGE OV Reviewed 04/02/2009 12:00 AM DRAIN/INJ JOINT/BURSA W/O US Reviewed 05/14/2009 12:00 AM DRAIN/INJ JOINT/BURSA W/O US Reviewed 05/14/2009 12:00 AM DRAIN/INJ JOINT/BURSA W/O US Reviewed Results Summary Date and Description Results 05/14/2009 12:00 AM Amount used 80 mg Joint/Area Rt. Knee 07/23/2011 3:27 PM WBC 5.7 RBC 4.03 HGB 11.70 g/dLHCT 34.90 %MCV 87.0 fLMCH 29.0 pgMCHC 33.50 g/dLRDW SD 43 RDW CV 13.50 %MPV 9.40 fLPLT 285 NRBC# 0.00 NRBC % 0.0 %NEUT 50.70 %%LYMP 31.10 %%MONO 8.90 %%EOS 8.60 %%BASO 0.70 %#NEUT 2.89 # LYMP 1.77 #MONO 0.51 #EOS 0.49 #BASO 0.04 MANUAL DIFF NOT IND GLUCOSE 93.0 mg/ dLSODIUM 141.0 mmol/LPOTASSIUM 4.0 mmol/LCHLORIDE 102.0 mmol/LCO2 26.0 mmol/ LBUN 12.0 mg/dLCREATININE 0.70 mg/dLSGOT/AST 9.0 IU/LSGPT/ALT 9.0 IU/LALK PHOS 66.0 IU/LTOTAL PROTEIN 6.70 g/dLALBUMIN 3.90 g/dLTOTAL BILI 0.50 mg/dLCALCIUM 9.30 mg/dLAGE 61 GFR NonAA 85 GFR AA 103 eGFR 60 eGFR AA* 60 06/11/2017 6:28 PM Clarity Ur CLOUDY Color Ur YELLOW Glucose Ur-sCnc NEGATIVE Bilirub Ur Ql Strip NEGATIVE Ketones Ur Ql Strip NEGATIVE Sp Gr Ur Qn 1/015 Hgb Ur Ql Strip LARGE pH Ur-LsCnc 8.0 Prot Ur Ql Strip 100MG Urobilinogen Ur-mCnc 4.0 E.U Nitrite Ur Ql Strip NEGATIVE WBC Est Ur Ql Strip MODERATE 08/14/2017 8:44 PM Clarity Ur CLOUDY Color Ur DK. BROWN Glucose Ur-sCnc NEGATIVE Bilirub Ur Ql Strip SMALL Ketones Ur Ql Strip 15MG Sp Gr Ur Qn >=1.030 Hgb Ur Ql Strip LARGE pH Ur-LsCnc 5.0 Prot Ur Ql Strip >=300MG Urobilinogen Ur- mCnc 1.O E.U Nitrite Ur Ql Strip POSITIVE WBC Est Ur Ql Strip SMALL History Of Immunizations Not available. History of Past Illness Name Date of Onset Comments Trochanteric bursitis Apr 02 2009 10:02AM Osteoarthritis, Knee Apr 02 2009 10:02AM Trochanteric Bursitis Apr 02 2009 11:35AM Hypertension 1980 Sinusitis, Chronic 1968 depression Allergies Arthritis unspecified 1977 Thyroid disorder Osteoarthritis, Knee May 14 2009 11:29AM Pain in joint; lower leg/knee May 14 2009 11:29AM Osteoarthritis, Knee May 16 2009 5:07PM Pain in joint; lower leg/knee May 16 2009 5:07PM Abdominal Pain Jul 23 2011 3:16PM Nausea Jul 23 2011 3:16PM Abdominal Pain Jul 23 2011 3:57PM Nausea Jul 23 2011 3:57PM Postoperative Follow-Up Aug 12 2011 1:44PM Postoperative Follow-Up Jul 23 2011 2:49PM Intestinal Disorder Jul 23 2011 2:49PM Postoperative Follow-up Jul 09 2011 10:33AM Intestine Disorder, Functional Nov 03 2011 1:11PM Acute upper respiratory infection Feb 15 2017 1:28PM Acute bronchitis, unspecified organism May 25 2017 5:20PM Hematuria Jun 11 2017 5:12PM Dysuria Jun 11 2017 5:12PM Upper respiratory tract infection, unspecified type Aug 03 2017 5:13PM Cough Aug 23 2017 1:32PM Right lower lobe pneumonia Aug 23 2017 1:32PM Dysuria Aug 14 2017 5:15PM Abnormal urine findings Aug 14 2017 5:15PM Suprapubic abdominal pain Aug 14 2017 5:15PM Payers Insurance Name Company Name Plan Name Plan Number Policy Number Policy Group Number Start Date Medicare RHC Medicare RHC [id number] N/A BCBS [facility] [id number] N/A Medicare Part B Medicare Of [place] [id number] Monday, 1999 Medicare Part A Medicare - Lab/Xray [id number] N/A History of Encounters Visit Date Visit Type Provider 08/23/2017 Office visit Dave Siddiqui METAL DRESSER 08/14/2017 Office visit Zarina Tafoya EXTRUSION LINE OPERATOR 08/03/2017 Office visit Kamlesh Doss EXTRUSION LINE OPERATOR 06/11/2017 Office visit Zarina Tafoya EXTRUSION LINE OPERATOR 05/25/2017 Office visit Kamlesh Doss EXTRUSION LINE OPERATOR 02/15/2017 Office visit Zarina Tafoya EXTRUSION LINE OPERATOR 12/09/2016 [facility] Travis Geronimo MD 03/19/2015 [facility] Pj Munoz MD 03/02/2015 Office visit Pj Munoz MD 11/03/2011 Office visit Yifan Grace MD 08/12/2011 Office visit Yifan Grace MD 07/23/2011 Office visit Yifan Grace MD 07/09/2011 Office visit Yifan Grace MD 06/26/2011 [facility] Yifan Grace MD 06/23/2011 [facility] Travis Geronimo MD 12/12/2010 [facility] Travis Geronimo MD 05/14/2009 Office visit Kellee Mari MD 04/02/2009 Office visit Kellee Mari MD
--- OUTSIDE RECORDS SUMMARY | 2017-11-26 10:26 | XMS REPORT | Clinical Summary ---
Author Author [facility] Organization [facility] Address Unknown Phone Unavailable Care Team Providers Care Security Attendant Name Role Phone Zack Santos MD PCP Source Comments Some departments are not documenting in the electronic medical record. If you do not see the information that you expected, contact Release of Information in the Health Information Management department at [phone] for further assistance in locating additional records.[facility] Allergies Active Allergy Reactions Severity Noted Date Comments Tetracycline HIVES, ITCHING Medium 12/10/2016 Current Medications Prescription Sig. Disp. Refills Start End Date Status Date zolpidem (AMBIEN) 10 mg Take 10 mg by mouth at Active tablet bedtime as needed for Sleep. benazepril(+) (LOTENSIN) Take 10 mg by mouth Active 10 mg tablet daily. lovastatin(+) (MEVACOR) Take 20 mg by mouth Active 20 mg tablet daily. aspirin 81 mg chewable Chew 1 tablet by mouth 90 tablet 3 12/12/19 Active tablet daily. Take with food. 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 Overview: CTA head revealed a saccular, 7 mm anterior communicating artery aneurysm and a probable 4 mm saccular periclinoid left ICA aneurysm Ischemic stroke (HCC) 12/10/2016 Leukocytosis 12/10/2016 HTN (hypertension) HLD (hyperlipidemia) Gastric ulcer Depression Social History Tobacco Use Types Packs/Day Years Used Date Former Smoker Smokeless Tobacco: Never Used Sex Assigned at Date Recorded Not on file Last Filed Vital Signs Vital Sign Reading Time Taken Blood Pressure 124/76 12/11/2016 6:00 PM CDT Pulse 72 12/11/2016 6:00 PM CDT Temperature 37.1 C (98.7 F) 12/11/2016 4:00 PM CDT Respiratory Rate - - Oxygen Saturation 98% 12/11/2016 6:00 PM CDT Inhaled Oxygen - - Concentration Weight 94 kg (207 lb 3.7 oz) 12/11/2016 5:02 AM CDT Height 165.1 cm (5' 5") 12/10/2016 10:03 AM CDT Body Mass Index 34.49 12/11/2016 5:02 AM CDT Plan of Treatment Health Maintenance Due Date Last Done Comments HEPATITIS C SCREENING 1948 PHYSICAL (COMPREHENSIVE) 02/21/1955 EXAM PERTUSSIS VACCINE 02/21/1959 TETANUS VACCINE 02/21/1965 BREAST CANCER SCREENING 1988 COLORECTAL CANCER 02/21/1998 SCREENING SHINGLES RECOMBINANT 02/21/1998 VACCINE (1 of 2) OSTEOPOROSIS SCREENING 02/21/2013 PNEUMONIA (PCV13/PPSV23) 02/21/2013 VACCINES (1 of 2 - PCV13) INFLUENZA VACCINE 01/18/2018 02/14/2005, 01/25/2004, 02/11/2002, Additional history exists Results Not on filefrom Last 3 Months
--- OUTSIDE RECORDS SUMMARY | 2017-11-26 10:27 | XMS REPORT ---
Author Author Ricky Donato Organization [facility] Address [address] [place], [place] [id number] Care Team Providers Care Distribution Tech Name Role Phone Tanmay Ricky PCP Allergies and Adverse Reactions Name Reaction [...] (20 mg) by oral route once daily alprazolam 1 mg oral tablet take 1 tablet (1 mg) by oral route 3 times per day Carafate 1 gram oral tablet take 1 tablet (1 gram) by oral route 4 times per day on an empty stomach 1 hour before meals and at bedtime Macrobid 100 mg oral capsule 09/30/2017 12/29/2017 take 1 capsule (100 mg) by oral route once daily Name Start Date Expiration Date SIG Comments [...] 07/09/2011 take 2 milliliters by oral route Reglan 10 mg oral tablet 11/03/2011 09/24/2017 take 1 tablet (10 mg) by oral route 4 times per day 30 minutes before meals and at bedtime Prilosec 40 mg oral capsule,delayed release(DR/EC) 11/03/2011 02/15/2017 take 1 capsule by oral route daily bethanechol chloride 25 mg oral tablet 02/15/2017 take 1 tablet (25 mg) by oral route 2 times per day on an empty stomach, 1 hour before or 2 hours after a meal pantoprazole 40 mg oral tablet,delayed release (DR/EC) 09/24/2017 take 1 tablet (40 mg) by oral route once daily Augmentin 875-125 mg oral tablet 02/15/2017 05/25/2017 take 1 tablet by oral route every 12 hours for 7 days Macrobid 100 mg oral capsule 06/11/2017 06/11/2017 take 1 capsule (100 mg) by oral route every 12 hours with food for 7 days Expensive, $40 co pay Medrol (Albino) 4 mg oral tablets,dose pack 08/23/2017 09/24/2017 take as directed Tessalon Perles 100 mg oral capsule 08/23/2017 09/24/2017 take 1 capsule (100 mg ) by oral route 3 times per day as needed for cough Problem List Description Status Onset Arthritis unspecified Active 1977 Hypertension Active 1980 Thyroid disorder Active Vital Signs Date Time BP-Sys(mm[Hg] BP-Felisa(mm[Hg]) HR(bpm) RR(rpm) Temp WT HT HC BMI BSA BMI Percentile O2 Sat(%) 09/24/2017 1:17:00 PM 110 mmHg 62 mmHg 58 bpm 14 rpm 97.5 F 193 lbs 98 % 08/23/2017 1:29:00 PM 124 mmHg 84 mmHg 83 bpm 98.2 F 194.25 lbs 93 % 08/14/2017 5:12:00 PM 116 mmHg 80 mmHg 72 bpm 16 rpm 97.5 F 202 lbs 65 in 33.61 kg/m2 2.05 m2 96 % 08/03/2017 5:11:00 PM 123 mmHg 77 mmHg 98 bpm 29 rpm 99 F 200.375 lbs 65 in 33.3438 kg/m 2.0416 m 97 % 06/11/2017 5:10:00 PM 128 mmHg 78 mmHg 77 bpm 16 rpm 97.5 F 206 lbs 65 in 34.28 kg/m2 2.07 m2 96 % 05/25/2017 5:17:00 PM 106 mmHg [...] Status 05/14/2009 12:00 AM Kenalog 40 Mg Im-Ndc#7793-9591-07 Reviewed 05/14/2009 12:00 AM HOT OR COLD [...] 09/17/2017 12:00 AM NO CHARGE OV Reviewed 09/24/2017 12:00 AM URINALYSIS AUTO W/SCOPE Reviewed 09/24/2017 12:00 AM CYTOGENETIC STUDY Reviewed 09/30/2017 12:00 AM CYSTOSCOPY Reviewed 04/02/2009 12:00 AM DRAIN/INJ JOINT/BURSA W/O [...] POSITIVE WBC Est Ur Ql Strip SMALL 09/24/2017 2:55 PM COLOR YELLOW APPEARANCE CLEAR SPEC GRAV 1.015 pH 6.5 PROTEIN NEGATIVE GLUCOSE NEGATIVE mg/dLKETONE TRACE BILIRUBIN NEGATIVE BLOOD NEGATIVE NITRITE NEGATIVE LEUK SCREEN NEGATIVE WBC/HPF RARE RBC/HPF NEGATIVE CASTS/LPF NEGATIVE /LPFCRYSTALS NEGATIVE MUCOUS THRDS 1+ BACTERIA NEGATIVE EPITH CELLS FEW SQUAMOUS /HPFTRICHOMONAS NEGATIVE YEAST NEGATIVE CULT SET UP? NO History Of Immunizations Not available. History of [...] Suprapubic abdominal pain Aug 14 2017 5:15PM Urge Incontinence Sep 24 2017 1:20PM Dysuria Sep 24 2017 1:20PM Urinary Tract Infection Sep 24 2017 1:20PM Recurrent UTI Sep 30 2017 1:37PM Payers Insurance Name Company Name Plan Name Plan Number Policy Number Policy Group Number Start Date Medicare Part B Medicare [place] [id number] Monday, [id number] N/A Medicare RHC Medicare RHC [id number] N/A Medicare Part A Medicare - Lab/Xray [id number] N/A History of Encounters Visit Date Visit Type Provider 09/30/2017 Procedures Ricky Donato MD 09/24/2017 Office visit Ricky Donato MD 08/23/2017 Office visit Dave Siddiqui NP 08/14/2017 Office visit Zarina Tafoya POWER SUPPLY ENGINEER 08/03/2017 Office visit Kamlesh Doss POWER SUPPLY ENGINEER 06/11/2017 Office visit Zarina Tafoya POWER SUPPLY ENGINEER 05/25/2017 Office visit Kamlesh Doss POWER SUPPLY ENGINEER 02/15/2017 Office visit Zarina Tafoya POWER SUPPLY ENGINEER 12/09/2016 [facility] Travis Geronimo MD 03/19/2015 [facility] Pj Munoz MD 03/02/2015 Office visit Pj Munoz MD 11/03/2011 Office visit Yifan Grace MD 08/12/2011 Office visit Yifan Grace MD 07/23/2011 Office visit Yifan Grace MD 07/09/2011 Office visit Yifan Grace MD 06/26/2011 [facility] Yifan Grace MD 06/23/2011 [facility] Travis Geronimo MD 12/12/2010 [facility] Travis Geronimo MD 05/14/2009 Office visit Kellee Mari MD 04/02/2009 Office visit Kellee Mair MD
--- OUTSIDE RECORDS SUMMARY | 2017-11-26 10:27 | XMS REPORT ---
Author Author Ricky Donato Organization [facility] Address [address] [place], [place] [address] Care Team Providers Care Tire Worker Name Role Phone Tanmay Ricky PCP Allergies and Adverse Reactions Name Reaction Notes TETRACYCLINES Plan of Treatment Planned Activity Comments Planned Date Planned Time Plan/Goal URINALYSIS W/MICRO C&S IF IND 09/24/2017 12:00 AM CYTOLOGY - URINE 09/24/2017 12:00 AM Medications Active Name Start Date Estimated Completion [...] 1 hour before meals and at bedtime Name Start Date Expiration Date SIG Comments [...] Status 05/14/2009 12:00 AM Kenalog 40 Mg Im-Ndc#2384-1178-20 Reviewed 05/14/2009 12:00 AM HOT OR COLD [...] Sinusitis, Chronic 1968 depression Allergies Arthritis unspecified 1978 Thyroid disorder Osteoarthritis, Knee May 14 2009 [...] Urinary Tract Infection Sep 24 2017 1:20PM Payers Insurance Name Company Name Plan Name Plan Number Policy Number Policy Group Number Start Date Medicare Part B Medicare Of [place] [id number] Monday, 1999 BCBS [employer] [facility] [id number] N/A Medicare RHC Medicare RHC [id number] N/A Medicare Part A Medicare - Lab/Xray [id number] N/A History of Encounters Visit Date Visit Type Provider 09/24/2017 Office visit Ricky Donato MD 08/23/2017 Office visit Dave Siddiqui NP 08/14/2017 Office visit Zarina Tafoya BEHAVIORAL THERAPY COORDINATOR 08/03/2017 Office visit Kamlesh Doss BEHAVIORAL THERAPY COORDINATOR 06/11/2017 Office visit Zarina Tafoya BEHAVIORAL THERAPY COORDINATOR 05/25/2017 Office visit Kamlesh Doss BEHAVIORAL THERAPY COORDINATOR 02/15/2017 Office visit Zarina Tafoya BEHAVIORAL THERAPY COORDINATOR 12/09/2016 Hospital Travis Geronimo MD 03/19/2015 [facility] Pj Munoz MD 03/02/2015 Office visit Pj Munoz MD 11/03/2011 Office visit Yifan Grace MD 08/12/2011 Office visit Yifan Grace MD 07/23/2011 Office visit Yifan Grace MD 07/09/2011 Office visit Yifan Grace MD 06/26/2011 [facility] Yifan Grace MD 06/23/2011 [facility] Travis Geronimo MD 12/12/2010 [facility] Travis Geronimo MD 05/14/2009 Office visit Kellee Mari MD 04/02/2009 Office visit Kellee Mari MD
--- OUTSIDE RECORDS SUMMARY | 2017-11-26 10:28 | XMS REPORT ---
Author Author Kamlesh Doss [facility] Address [address] [place], [place] [address] Care Team Providers Care Website Designer Name Role Phone Kamlesh Doss PCP Allergies and Adverse Reactions Name Reaction [...] 40 mg) by oral route once daily Bactrim DS 800-160 mg oral tablet 06/11/2017 take 1 tablet by oral route every 12 hours for 10 days amoxicillin 500 mg oral capsule 08/03/2017 08/10/2017 take 1 capsule (500 mg) by oral route every 8 hours for 7 days Name Start Date Expiration Date SIG Comments [...] route every 12 hours for 7 days Discontinued Name Start Date Discontinued Date [...] HC BMI BSA BMI Percentile O2 Sat(%) 08/03/2017 5:11:00 PM 123 mmHg 77 mmHg [...] Status 05/14/2009 12:00 AM Kenalog 40 Mg Im-Nd#9380-8150-53 Reviewed 05/14/2009 12:00 AM HOT OR COLD PACKS THERAPY Reviewed 07/23/2011 12:00 AM COMPLETE CBC W/AUTO DIFF WBC Reviewed 07/23/2011 12:00 AM COMPREHEN METABOLIC PANEL Reviewed 07/23/2011 12:00 AM X-RAY UPPER GI&SMALL INTEST Reviewed 06/11/2017 6:28 PM URINALYSIS AUTO W/O SCOPE Reviewed 06/11/2017 12:00 AM URINE CULTURE/COLONY COUNT Reviewed 04/02/2009 12:00 AM DRAIN/INJ JOINT/BURSA W/O [...] NEGATIVE WBC Est Ur Ql Strip MODERATE History Of Immunizations Not available. History of [...] infection, unspecified type Aug 03 2017 5:13PM Payers Insurance Name Company Name Plan Name Plan Number Policy Number Policy Group Number Start Date Medicare RHC Medicare RHC [id number] N/A [id number] N/A Medicare Part B Medicare Of [place] [id number] Monday, 1999 Medicare Part A Medicare - Lab/Xray [id number] N/A History of Encounters Visit Date Visit Type Provider 08/03/2017 Office visit Kamlesh Doss INSPECTOR AIR CARRIER 06/11/2017 Office visit Zarina Tafoya INSPECTOR AIR CARRIER 05/25/2017 Office visit Kamlesh Doss INSPECTOR AIR CARRIER 02/15/2017 Office visit Zarina Tafoya INSPECTOR AIR CARRIER 12/09/2016 [facility] Travis Geronimo MD 03/19/2015 [facility] Pj Munoz MD 03/02/2015 Office visit Pj Munoz MD 11/03/2011 Office visit Yifan Grace MD 08/12/2011 Office visit Yifan Grace MD 07/23/2011 Office visit Yifan Grace MD 07/09/2011 Office visit Yifan Grace MD 06/26/2011 [facility] Yifan Grace MD 06/23/2011 [facility] Travis Geronimo MD 12/12/2010 [facility] Travis Geronimo MD 05/14/2009 Office visit Kellee Mari MD 04/02/2009 Office visit Kellee Mari MD
--- OUTSIDE RECORDS SUMMARY | 2017-11-26 10:28 | XMS REPORT ---
Author Author Kamlesh Doss [facility] Address [address] [place], [place] [address] Care Team Providers Care Spot Billing Clerk Name Role Phone Kamlesh Doss PCP Allergies [...] 40 mg) by oral route once daily Augmentin 875-125 mg oral tablet 05/25/2017 take 1 tablet by oral route every 12 hours for 7 days Name Start Date [...] as needed for 10 days for pain Discontinued Name Start Date Discontinued Date SIG [...] route every 12 hours for 7 days Problem List Description Status Onset Arthritis unspecified Active 1977 Hypertension Active 1979 Thyroid disorder Active Vital Signs Date Time BP-Sys(mm[Hg] BP-Felisa(mm[Hg]) HR(bpm) RR(rpm) Temp WT HT HC BMI BSA BMI Percentile O2 Sat(%) 05/25/2017 5:17:00 PM 106 mmHg 63 mmHg [...] rpm 96.5 F 197 lbs 65 in 32.7822 kg/m 2.02 m2 98 % 05/14/2009 11:26:00 AM [...] Status 05/14/2009 12:00 AM Kenalog 40 Mg Im-Ndc#9201-0494-92 Reviewed 05/14/2009 12:00 AM HOT OR COLD PACKS THERAPY Reviewed 07/23/2011 12:00 AM COMPLETE CBC W/AUTO DIFF WBC Reviewed 07/23/2011 12:00 AM COMPREHEN METABOLIC PANEL Reviewed 07/23/2011 12:00 AM X-RAY UPPER GI&SMALL INTEST Reviewed 04/02/2009 12:00 AM DRAIN/INJ JOINT/BURSA W/O US Reviewed 05/14/2009 12:00 AM DRAIN/INJ JOINT/BURSA W/O US Reviewed 05/14/2009 12:00 AM DRAIN/INJ JOINT/BURSA W/O US Reviewed Results Summary Date and Description Results 07/23/2011 3:27 PM WBC 5.7 RBC 4.03 [...] AA 103 eGFR 60 eGFR AA* 60 History Of Immunizations Not available. History of [...] bronchitis, unspecified organism May 25 2017 5:20PM Payers Insurance Name Company Name Plan Name Plan Number Policy Number Policy Group Number Start Date Medicare Part B Medicare Of [place] [id number] Monday, 2001 [facility] [id number] N/A Medicare RHC Medicare RHC [id number] N/A Medicare Part A Medicare - Lab/Xray [id number] N/A History of Encounters Visit Date Visit Type Provider 05/25/2017 Office visit Kamlesh Doss SLUBBER FRAME CHANGER 02/15/2017 Office visit Zarina Tafoya SLUBBER FRAME CHANGER 12/09/2016 Hospital Travis Geronimo MD 03/19/2015 Hospital Pj Munoz MD 03/02/2015 Office visit Pj Munoz MD 11/03/2011 Office visit Yifan Grace MD 08/12/2011 Office visit Yifan Grace MD 07/23/2011 Office visit Yifan Grace MD 07/09/2011 Office visit Yifan Grace MD 06/26/2011 Hospital Yifan Grace MD 06/23/2011 Hospital Travis Geronimo MD 12/12/2010 [facility] Travis Geronimo MD 05/14/2009 Office visit Kellee Mari MD 04/02/2009 Office visit Kellee Mari MD
--- OUTSIDE RECORDS SUMMARY | 2017-11-26 10:28 | XMS REPORT ---
Author Author Zarina Tafoya [facility] Address [address] [place], [place] [address] Care Team Providers Care Multiple Punch Press Operator Name Role Phone Zarina Tafoya PCP Allergies and Adverse Reactions Name Reaction Notes TETRACYCLINES Plan of Treatment Planned Activity Comments Planned Date Planned Time Plan/Goal Urine Culture. 06/11/2017 12:00 AM Medications Active Name Start Date [...] 40 mg) by oral route once daily Macrobid 100 mg oral capsule 06/11/2017 take 1 capsule (100 mg) by oral route every 12 hours with food for 7 days Name Start Date Expiration [...] HC BMI BSA BMI Percentile O2 Sat(%) 06/11/2017 5:10:00 PM 128 mmHg 78 mmHg 77 bpm 16 rpm 97.5 F 206 lbs 65 in 34.28 kg/m2 2.07 m2 96 % 05/25/2017 5:17:00 PM 106 mmHg 63 mmHg 78 bpm 18 rpm 97.4 F 204 lbs 65 in 33.947 kg/m 2.06 m 94 % 02/15/2017 1:23:00 PM 130 mmHg 76 mmHg 78 bpm 20 rpm 98.4 F 205 lbs 65 in 34.11 kg/m2 2.07 m2 96 % 03/02/2015 10:57:00 AM 220 lbs 65 in 36.6095 kg/m 2.1393 m 11/03/2011 1:07:00 PM 100 mmHg 80 mmHg 76 bpm 18 rpm 96.1 F 189 lbs 63 in 33.48 kg/m2 1.95 m2 97 % 08/12/2011 1:38:00 PM 96 mmHg 60 mmHg 70 bpm 18 rpm 96.2 F 193 lbs 65 in 32.1166 kg/m 2.0037 m 98 % 07/23/2011 2:45:00 PM 100 mmHg 60 mmHg 66 bpm 18 rpm 96.3 F 195 lbs 65 in 32.45 kg/m2 2.01 m2 98 % 07/09/2011 10:26:00 AM 110 mmHg 60 mmHg 76 bpm 18 rpm 96.5 F 197 lbs 65 in 32.7822 kg/m 2.0244 m 98 % 05/14/2009 11:26:00 AM 110 mmHg [...] Status 05/14/2009 12:00 AM Kenalog 40 Mg Im-[facility]#[id number] Reviewed 05/14/2009 12:00 AM HOT OR COLD [...] 2017 5:12PM Dysuria Jun 11 2017 5:12PM Payers Insurance Name Company Name Plan Name Plan Number Policy Number Policy Group Number Start Date Medicare RHC Medicare RHC [id number] N/A [facility] [id number] N/A Medicare Part B Medicare Of [place] [id number] Monday, 1999 Medicare Part A Medicare - Lab/Xray [id number] N/A History of Encounters Visit Date Visit Type Provider 06/11/2017 Office visit Zarina Tafoya HEAD OF ICT 05/25/2017 Office visit Kamlesh Doss HEAD OF ICT 02/15/2017 Office visit Zarina Tafoya HEAD OF ICT 12/09/2016 [facility] Travis Geronimo MD 03/19/2015 [facility] Pj Munoz MD 03/02/2015 Office visit Pj Munoz MD 11/03/2011 Office visit Yifan Grace MD 08/12/2011 Office visit Yifan Grace MD 07/23/2011 Office visit Yifan Garce MD 07/09/2011 Office visit Yifan Grace MD 06/26/2011 [facility] Yifan Grace MD 06/23/2011 [facility] Travis Geronimo MD 12/12/2010 [facility] Travis Geronimo MD 05/14/2009 Office visit Kellee Mari MD 04/02/2009 Office visit Kellee Mari MD
--- OUTSIDE RECORDS SUMMARY | 2017-11-26 10:29 | XMS REPORT ---
Author Author Dave Siddiqui Organization [facility] Address [address] [place], [place] [address] Care Team Providers Care Ore Miner Name Role Phone Dave Siddiqui PCP Allergies [...] 40 mg) by oral route once daily levofloxacin 500 mg oral tablet 08/23/2017 09/02/2017 take 1 tablet (500 mg) by oral route once daily for 10 days Medrol (Albino) 4 mg oral tablets,dose pack [...] route every 8 hours for 7 days Discontinued Name Start [...] Status 05/14/2009 12:00 AM Kenalog 40 Mg Im-Nd#[id number] Reviewed 05/14/2009 12:00 AM HOT OR COLD PACKS THERAPY Reviewed 07/23/2011 12:00 AM COMPLETE CBC W/AUTO DIFF WBC Reviewed 07/23/2011 12:00 AM COMPREHEN METABOLIC PANEL Reviewed 07/23/2011 12:00 AM X-RAY UPPER GI&SMALL INTEST Reviewed 06/11/2017 6:28 PM URINALYSIS AUTO W/O SCOPE Reviewed 06/11/2017 12:00 AM URINE CULTURE/COLONY COUNT Reviewed 08/14/2017 8:44 PM URINALYSIS AUTO W/O SCOPE Reviewed 04/02/2009 12:00 AM DRAIN/INJ JOINT/BURSA W/O [...] lower lobe pneumonia Aug 23 2017 1:32PM Payers Insurance Name Company Name Plan Name Plan Number Policy Number Policy Group Number Start Date Medicare RHC Medicare [facility] [id number] [id number] N/A Medicare Part B Medicare Of [place] [id number] Monday, 1999 Medicare Part A Medicare - Lab/Xray [id number] N/A History of Encounters Visit Date Visit Type Provider 08/23/2017 Office visit Dave Siddiqui MEDICAL INSURANCE VERIFIER 08/14/2017 Office visit Zarina Tafoya FOAM CHARGER 08/03/2017 Office visit Kamlesh Doss FOAM CHARGER 06/11/2017 Office visit Zarina Lucio Michelet FOAM CHARGER 05/25/2017 Office visit Kamlesh Doss FOAM CHARGER 02/15/2017 Office visit Zarina Lucio Michelet FOAM CHARGER 12/09/2016 Hospital Travis Geronimo MD 03/19/2015 [facility] Pj Munoz MD 03/02/2015 Office visit Pj Munoz MD 11/03/2011 Office visit Yifan Grace MD 08/12/2011 Office visit Yifan Grace MD 07/23/2011 Office visit Yifan Grace MD 07/09/2011 Office visit Yifan Grace MD 06/26/2011 [facility] Yifan Grace MD 06/23/2011 [facility] Travis Geronimo MD 12/12/2010 [facility] Travis Geronimo MD 05/14/2009 Office visit Kellee Mari MD 04/02/2009 Office visit Kellee Mari MD
--- OUTSIDE RECORDS SUMMARY | 2017-11-26 10:30 | XMS REPORT ---
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 Active 67177969 Problem Encounter for long-term (current) use of other medications V58.69 Active 959171884 Problem Major depressive disorder, recurrent episode, mild with anxious distress F33.0 Active 69574696 Problem Depressive disorder, not elsewhere classified 311 Active 71095660 ALLERGIES No Information ENCOUNTERS Encounter Location Date Diagnosis [place] [id number] [place] [address]35[address] 5586 Nov, [facility] [id number] [place] [address] 46226- 1404 Oct, Major depressive disorder, recurrent episode, mild with anxious distress F33.0 [place] [id number] [place] [address] 69917- 2808 Sep, Major depressive disorder, recurrent episode, mild with anxious distress F33.0 [facility] [id number] [place] [address] 25686- 8170 August, Major depressive disorder, recurrent episode, mild with anxious distress F33.0 [place] [address] [address] August, Major depressive disorder, recurrent episode, mild with anxious distress F33.0 ; Generalized anxiety disorder F41.1 and 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 [facility] [id number] [place] [address] 55500- 4827 Jul, Major depressive disorder, recurrent episode, mild with anxious distress F33.0 [facility] [id number] [place] [address] 08412- 5316 Jul, Major depressive disorder, recurrent episode, mild with anxious distress F33.0 [facility] [id number] [place] [address] 70815- 3293 Jun, Major depressive disorder, recurrent episode, mild with anxious distress F33.0 [facility] [id number] [place] [address] 44129- 9566 May, Major depressive disorder, recurrent episode, mild with anxious distress F33.0 [facility] [id number] [place] [address] 42674- 0620 May, Major depressive disorder, recurrent episode, mild with anxious distress F33.0 ; Generalized anxiety disorder F41.1 and 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 [facility] [id number] [place] [address] 23126- 7302 Apr, Major depressive disorder, recurrent episode, mild with anxious distress F33.0 [facility] [id number] [place] [address] 04038- 7540 Mar, Major depressive disorder, recurrent episode, mild with anxious distress F33.0 [facility] [id number] [place] [address] 02159- 5380 Feb, Major depressive disorder, recurrent episode, mild with anxious distress F33.0 [facility] [address] [place] [address] 83718- 5847 Feb, Major depressive disorder, recurrent episode, mild with anxious distress F33.0 ; Generalized anxiety disorder F41.1 and 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 [facility] [address] [place] [address] 00143- 6892 Jan, Major depressive disorder, recurrent episode, mild with anxious distress F33.0 [facility] [id number] [place] [address] 28088- 6753 Dec, Major depressive disorder, recurrent episode, mild with anxious distress F33.0 [facility] [address] [facility] [id number] [place] [address] 92333- 9476 Nov, Major depressive disorder, recurrent episode, mild with anxious distress F33.0 [facility] [address] [facility] [id number], [place] [address] Nov, [facility] [address] [facility] [id number] [place] [address] 38776- 2763 Nov, Major depressive disorder, recurrent episode, mild with anxious distress F33.0 ; Generalized anxiety disorder F41.1 and 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 [facility] [address] [facility] [id number] [place] [address] 03970- 4445 Oct, [facility] [address] [facility] [id number] [place] [address] 89855- 8870 Oct, Major depressive disorder, recurrent episode, mild with anxious distress F33.0 ; Generalized anxiety disorder F41.1 and 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 [facility] [address] [facility] [id number], [place] [address] 7953 Sep, Major depressive disorder, recurrent episode, mild with anxious distress F33.0 and Generalized anxiety disorder F41.1 [facility] [address] [facility] [id number], [place] [address] 8[address] Sep, [facility] [address] [facility] [id number] [address] 5[address] Jul, Major depressive disorder, recurrent episode, mild with anxious distress F33.0 [facility] [address] [facility] [id number], [place] [address] 8545 Jun, Major depressive disorder, recurrent episode, mild with anxious distress F33.0 [facility] [address] [facility] [id number], [place] [address] 0127 May, Major depressive disorder, recurrent episode, mild with anxious distress F33.0 [facility] [id number] [place] [address] 46568- 6018 16 May, 2016 Major depressive disorder, recurrent episode, mild with anxious distress F33.0 [facility] [id number] [place] [address] 63539- 6685 May, Major depressive disorder, recurrent episode, mild with anxious distress F33.0 and Generalized anxiety disorder F41.1 [facility] [id number] [place] [address] 09775- 9255 Jan, [facility] [id number] [place] [address] 91008- 9150 Dec, Major depressive disorder, recurrent episode, mild with anxious distress F33.0 and Insomnia, unspecified type G47.00 [facility] [id number] [place] [address] 21940- 8501 Sep, [facility] [id number] [place] [address] 70413- 4184 Sep, Major depressive disorder, recurrent episode, mild with anxious distress F33.0 [facility] [id number] [place] [address] 83546- 8950 August, [facility] [id number] [place] [address] 86715- 6612 August, Generalized anxiety disorder F41.1 [facility] [address] [place] [address] 93994- 6001 Jul, [facility] [address] [place] [address] 39743- 2023 Jul, [facility] [id number] [place] [address] 62652- 9359 May, [facility] [id number] [place] [address] 05258- 3337 Mar, [facility] [address] [place] [address] 93783- 9623 Mar, [facility] [address] [address] 15 Mar, 2015 Major depressive disorder, single episode, unspecified F32.9 and Generalized anxiety disorder F41.1 [facility] [address] [address] 2320 13 Nov, 2014 Depressive disorder, not elsewhere classified 311 and Generalized anxiety disorder 300.02 [facility] [id number] [place] [address] 72086- 0331 07 Nov, 2014 [facility] [id number] [place] [address] 59228- 6276 09 Oct, 2014 [facility] [id number] [place] [address] 37579- 2154 Sep, [facility] [id number] [address]- 0890 Sep, [facility] [id number] [place] [address] 40602- 9312 August, Depressive disorder, not elsewhere classified 311 and Generalized anxiety disorder 300.02 [facility] [address] [address]- 7009 August, [facility] [address] [address]- 9948 14 Jul, 2014 [facility] [address] [address]- 9910 Jul, [facility] [address] [address]- 3430 Apr, [facility] [address] [address]- 4090 Apr, [facility] [address] [address]- 0291 15 Mar, 2014 [facility] [address] [address]- 5492 15 Mar, 2014 [facility] [id number] [place] [address]- 4738 15 Mar, 2014 [facility] [place] [facility] [address] [id number] [place] [address]- 4538 15 Mar, 2014 [facility] [place] [facility] [address] [id number] [place] [address]- 5517 15 Mar, 2014 [facility] [place] [facility] [address] [id number] [place] [address]- 8364 15 Mar, 2014 [facility] [place] [facility] [address] [id number] [place] [address]- 6762 Feb, [facility] [place] [facility] [address] [id number] [place] 1932 Feb, [facility] [place] [facility] [address] [id number] [place] [address]- 9041 14 Jan, 2014 [facility] [place] [facility] [address] [id number] [place] [address]- 1572 14 Jan, 2014 [facility] [place] [facility] [address] [id number] [place] [address]- 2525 09 Dec, 2013 [facility] [place] [facility] [address] [id number] [place] [address]- 7308 Dec, [facility] [place] [facility] [address] [id number] [place] [address]- 0736 15 Nov, 2013 [facility] [place] [facility] [address] [id number] [place] [address]- 9649 Nov, [facility] [place] [facility] [address] [id number] [place] [address]- 5060 Oct, [facility] [place] [facility] [address] [id number] [place] [address]- 0892 Oct, [facility] [place] [facility] [address] [id number] [place] [address]- 3750 Oct, [facility] [place] [facility] [address] [id number] [place] [address]- 5286 Oct, [facility] [place] [facility] [address] [id number] [place] [address]- 4803 Sep, [facility] [place] [facility] [address] [id number] [place] [address]- 9556 Sep, [facility] [place] [facility] [address] [id number] [place] [address]- 7135 August, [facility] [place] [facility] [address] [id number] [place] [address]- 7235 August, [facility] [place] [facility] [address] [id number] [place] [address]- 0822 Jul, [facility] [place] [facility] [address] [id number] [place] [address]- 2592 Jul, [facility] [place] [facility] [address] [id number] [place] [address]- 5680 May, [facility] [place] [facility] [address] [id number] [place] [address]- 5724 May, [facility] [place] [facility] [address] [id number] [place] [address]- 6943 Apr, [facility] [place] [facility] [address] [id number] [place] [address]- 1874 Apr, [facility] [place] [facility] [address] [id number] [place] [address]- 9175 Apr, [facility] [place] [facility] [address] [id number], [place] [address]- 9364 Apr, [facility] [place] [facility] [address] [id number] [place] [address]- 4942 Apr, [facility] [place] [facility] [address] [id number] [place] [address]- 9242 Jan, [facility] [place] [facility] [address] [id number] [place] [address]- 6429 Jan, [facility] [place] [facility] [address] [id number] [place] [address]- 2433 Nov, [facility] [address] [id number] [place] [address]- 0179 Oct, [facility] [address] [id number] [place] [address]- 5712 August, [facility] [address] [id number] [place] [address]- 6991 Jul, [facility] [place] [facility] [address] [id number] [place] [address]- 5690 Jul, [facility] [address] [id number] [place] [address]- 7423 Jul, [facility] [address] [id number] [place] [address]- 5866 Apr, [facility] [address] [id number] [place] [address]- 1836 Apr, [facility] [address] [id number] [place] [address]- 1097 Apr, [facility] [address] [id number] [place] [address]- 9627 Jan, [facility] [address] [id number] [place] [address]- 2312 Jan, [facility] [address] [id number] [place] [address]- 6213 Dec, [facility] [address] [id number] [place] [address]- 5057 Oct, [facility] [place] [facility] [address] [id number] [place] [address]- 0497 Jul, [facility] [place] [facility] [address] [id number] [place] [address]- 2331 Jul, [facility] [address] [id number] [place] [address]- 1772 Jul, [facility] [id number] [address]- 8709 Jun, [facility] [address], [place] [address]- 7932 Mar, [facility] [address] [facility] [id number] [address]- 4606 Mar, [facility] [address], [place] [address]- 4628 Feb, [facility] [address], [place] [address]- 2185 Feb, [facility] [address], [place] [address]- 1164 Mar, [facility] [address], [place] [address]- 8390 Feb, [facility] [address], [place] [address]- 5557 Feb, [facility] [address], [place] [address]- 5196 Feb, [facility] [address], [place] [address]- 7251 Jan, [facility] [address], [place] [address]- 1122 Jan, IMMUNIZATIONS No Known Immunizations SOCIAL HISTORY Never Assessed REASON FOR VISIT ambien/xanax 08/07/2017 PLAN OF CARE VITAL SIGNS MEDICATIONS Medication Instructions Dosage Frequency Start Date End Date Duration Status Alprazolam 1 MG Orally daily- no early refills TAKE ONE TABLET BY MOUTH FOUR TIMES DAILY NEEDED 30 days Active Celexa 20 mg Orally Once a day 1.5 tablet 24h 30 days Active Ambien 10 MG Orally Once a day 1 tablet at bedtime as needed 24h 30 days Active RESULTS No Results PROCEDURES No Known procedures INSTRUCTIONS MEDICATIONS ADMINISTERED No Known Medications MEDICAL (GENERAL) HISTORY Type Description Date Medical History HTN Medical History GI concerns, ruling out cancer, possible dilated small intestines, have upper and lower scopes Nov 18 2016 Medical History Elevated liver enzymes (told recently) Medical History hyperlipidemia Medical History colon blockage, bowel resection in 2012 Medical History CVA November 2016 Medical History gastric ulcer Surgical History cholecystecomty, small intestine blockage, bariatric surgery , appendectomy, tonsillectomy, hysterectomy Hospitalization History Surgical and childbirth Hospitalization History ECT treatments x 20, [place] inpatient [facility] about x 4 Hospitalization History stroke hospitalized for two nights 11/2016
--- OUTSIDE RECORDS SUMMARY | 2017-11-26 10:30 | XMS REPORT ---
Author Author ELYSIA AVIVA 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 Active 49644142 Problem Encounter for long-term (current) use of other medications V58.69 Active 379971049 Problem Major depressive disorder, recurrent episode, mild with anxious distress F33.0 Active 23719908 Problem Depressive disorder, not elsewhere classified 311 Active 89851440 ALLERGIES No Information ENCOUNTERS Encounter Location Date Diagnosis [place] [id number] [place] [address] 40750- 1671 Nov, [facility] [id number] [place] [address] 22423- 8930 Oct, Major depressive disorder, recurrent episode, mild with anxious distress F33.0 [place] [id number] [place] [address] 79190- 3461 Sep, Major depressive disorder, recurrent episode, mild with anxious distress F33.0 [facility] [id number] [place] [address] 88643- 9749 August, Major depressive disorder, recurrent episode, mild with anxious distress F33.0 [place] [address] [address]- [address] August, Major depressive disorder, recurrent episode, mild with anxious distress F33.0 ; Generalized anxiety disorder F41.1 and 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 [facility] [id number] [place] [address] 66188- 8031 Jul, Major depressive disorder, recurrent episode, mild with anxious distress F33.0 [facility] [id number] [place] [address] 96044- 1323 Jul, Major depressive disorder, recurrent episode, mild with anxious distress F33.0 [facility] [id number] [place] [address] 24120- 2051 Jun, Major depressive disorder, recurrent episode, mild with anxious distress F33.0 [facility] [id number] [place] [address] 73515- 0973 May, Major depressive disorder, recurrent episode, mild with anxious distress F33.0 [facility] [id number] [place] [address] 92980- 9374 May, Major depressive disorder, recurrent episode, mild with anxious distress F33.0 ; Generalized anxiety disorder F41.1 and 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 [facility] [id number] [place] [address] 07905- 7086 Apr, Major depressive disorder, recurrent episode, mild with anxious distress F33.0 [facility] [id number] [place] [address] 67687- 1399 Mar, Major depressive disorder, recurrent episode, mild with anxious distress F33.0 [facility] [id number] [place] [address] 86788- 4129 Feb, Major depressive disorder, recurrent episode, mild with anxious distress F33.0 [facility] [id number] [place] [address] 61665- 4927 Feb, Major depressive disorder, recurrent episode, mild with anxious distress F33.0 ; Generalized anxiety disorder F41.1 and 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 [id number] [place] [address] 56123- 5361 Nov, Major depressive disorder, recurrent episode, mild with anxious distress F33.0 [facility] [address] [facility] [id number], [place] [address] 5538 Nov, [facility] [address] 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 [id number] [place] [address] 25051- 8648 Oct, [facility] [address] 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 [id number], [place] [address] 1194 Sep, Major depressive disorder, recurrent episode, mild with anxious distress F33.0 and Generalized anxiety disorder F41.1 [facility] [address] [facility] [id number], [place] [address]- 1724 Sep, [facility] [address] [facility] [id number], [place] [address]- 2516 Jul, Major depressive disorder, recurrent episode, mild with anxious distress F33.0 [facility] [address] [facility] [id number], [place] [address]- 6902 Jun, Major depressive disorder, recurrent episode, mild with anxious distress F33.0 [facility] [address] [facility] [id number], [place] [address]- 7849 May, Major depressive disorder, recurrent episode, mild with anxious distress F33.0 [facility] [id number] [place] [address] 91379- 2524 16 May, 2016 Major depressive disorder, recurrent episode, mild with anxious distress F33.0 [facility] [id number] [place] [address] 36746- 0085 May, Major depressive disorder, recurrent episode, mild with anxious distress F33.0 and Generalized anxiety disorder F41.1 [facility] [id number] [place] [address] 66396- 4230 Jan, [facility] [id number] [place] [address] 03299- 1922 Dec, Major depressive disorder, recurrent episode, mild with anxious distress F33.0 and Insomnia, unspecified type G47.00 [facility] [id number] [place] [address] 93102- 9018 Sep, [facility] [id number] [place] [address] 97365- 3533 Sep, Major depressive disorder, recurrent episode, mild with anxious distress F33.0 [facility] [id number] [place] [address] 82750- 3596 August, [facility] [id number] [place] [address] 43188- 4182 August, Generalized anxiety disorder F41.1 [facility] [id number] [place] [address] 74049- 7201 Jul, [facility] [id number] [place] [address] 16679- 5333 Jul, [facility] [id number] [place] [address] 60180- 0307 May, [facility] [id number] [place] [address] 99640- 8408 Mar, [facility] [id number] [place] [address] 72793- 8814 Mar, [facility] [address] [address]- 7919 15 Mar, 2015 Major depressive disorder, single episode, unspecified F32.9 and Generalized anxiety disorder F41.1 [facility] [address] [address]- 0182 13 Nov, 2014 Depressive disorder, not elsewhere classified 311 and Generalized anxiety disorder 300.02 [facility] [id number] [place] [address] 40224- 0292 07 Nov, 2014 [facility] [id number] [place] [address] 34916- 1227 09 Oct, 2014 [facility] [id number] [place] [address] 10245- 5278 Sep, [facility] [id number] [address]- 5874 Sep, [facility] [id number] [place] [address] 99171- 9217 August, Depressive disorder, not elsewhere classified 311 and Generalized anxiety disorder 300.02 [facility] [address] [address]- 8147 August, [facility] [address] [address]- 1969 14 Jul, 2014 [facility] [address] [address]- 2980 Jul, [facility] [address] [address]- 8845 Apr, [facility] [address] [address]- 4339 Apr, [facility] [address] [address]- 5350 15 Mar, 2014 [facility] [address] [address]- 3750 15 Mar, 2014 [facility] [id number] [place] [address]- 1416 15 Mar, 2014 [facility] [place] [facility] [address] [id number] [place] [address]- 3054 15 Mar, 2014 [facility] [place] [facility] [address] [id number] [place] [address]- 5590 15 Mar, 2014 [facility] [place] [facility] [address] [id number] [place] [address]- 7382 15 Mar, 2014 [facility] [place] [facility] [address] [id number] [place] [address]- 4512 Feb, [facility] [place] [facility] [address] [id number] [place] 6027 Feb, [facility] [place] [facility] [address] [id number] [place] [address]- 2812 14 Jan, 2014 [facility] [place] [facility] [address] [id number] [place] [address]- 5988 14 Jan, 2014 [facility] [place] [facility] [address] [id number] [place] [address]- 6749 09 Dec, 2013 [facility] [place] [facility] [address] [id number] [place] [address]- 3401 Dec, [facility] [place] [facility] [address] [id number] [place] [address]- 5660 15 Nov, 2013 [facility] [place] [facility] [address] [id number] [place] [address]- 1879 Nov, [facility] [place] [facility] [address] [id number] [place] [address]- 4349 Oct, [facility] [place] [facility] [address] [id number] [place] [address]- 7613 Oct, [facility] [place] [facility] [address] [id number] [place] [address]- 5042 Oct, [facility] [place] [facility] [address] [id number] [place] [address]- 8478 Oct, [facility] [place] [facility] [address] [id number] [place] [address]- 4512 Sep, [facility] [place] [facility] [address] [id number] [place] [address]- 3253 Sep, [facility] [place] [facility] [address] [id number] [place] [address]- 4722 August, [facility] [place] [facility] [address] [id number] [place] [address]- 2328 August, [facility] [place] [facility] [address] [id number] [place] [address]- 9523 Jul, [facility] [place] [facility] [address] [id number] [place] [address]- 1983 Jul, [facility] [place] [facility] [address] [id number] [place] [address]- 4255 May, [facility] [place] [facility] [address] [id number] [place] [address]- 6233 May, [facility] [place] [facility] [address] [id number] [place] [address]- 2933 Apr, [facility] [place] [facility] [address] [id number] [place] [address]- 7768 Apr, [facility] [place] [facility] [address] [id number] [place] [address]- 5912 Apr, [facility] [place] [facility] [address] [id number], [place] [address]- 6203 Apr, [facility] [place] [facility] [address] [id number] [place] [address]- 6775 Apr, [facility] [place] [facility] [address] [id number] [place] [address]- 1095 Jan, [facility] [place] [facility] [address] [id number] [place] [address]- 7159 Jan, [facility] [place] [facility] [address] [id number] [place] [address]- 4966 Nov, [facility] [address] [id number] [place] [address]- 2294 Oct, [facility] [address] [id number] [place] [address]- 5656 August, [facility] [address] [id number] [place] [address]- 3676 Jul, [facility] [place] [facility] [address] [id number] [place] [address]- 9963 Jul, [facility] [address] [id number] [place] [address]- 8354 Jul, [facility] [address] [id number] [place] [address]- 1696 Apr, [facility] [address] [id number] [place] [address]- 0819 Apr, [facility] [address] [id number] [place] [address]- 9334 Apr, [facility] [address] [id number] [place] [address]- 5540 Jan, [facility] [address] [id number] [place] [address]- 8046 Jan, [facility] [address] [id number] [place] [address]- 0840 Dec, [facility] [address] [id number] [place] [address]- 1022 Oct, [facility] [place] [facility] [address] [id number] [place] [address]- 3275 Jul, [facility] [place] [facility] [address] [id number] [place] [address]- 5473 Jul, [facility] [address] [id number] [place] [address]- 1431 Jul, [facility] [id number] [address]- 6709 Jun, [facility] [address] [address]- 3125 Mar, [facility] [address] 6064 Mar, [facility] [address] [address]- 2922 Feb, [facility] [address] [address]- 0682 Feb, [facility] [address] [address]- 6386 Mar, [facility] [address] [address]- 0915 Feb, [facility] [address], [place] [address]- 8631 Feb, [facility] [address] [address]- 9893 Feb, [facility] [address] [address]- 2297 Jan, [facility] [id number] [address]- 6357 Jan, IMMUNIZATIONS No Known Immunizations SOCIAL HISTORY Never Assessed REASON FOR VISIT xanax/ambien PLAN OF CARE VITAL SIGNS MEDICATIONS Medication Instructions Dosage Frequency Start Date End Date Duration Status Alprazolam 1 MG Orally daily- no early refills TAKE ONE TABLET BY MOUTH FOUR TIMES DAILY NEEDED 30 days Active Ambien 10 MG Orally [...] childbirth Hospitalization History ECT treatments x 20, [facility] about x 4 Hospitalization History stroke hospitalized for two nights 11/2016
--- OUTSIDE RECORDS SUMMARY | 2017-11-26 10:30 | XMS REPORT ---
Author Author Zarina Tafoya [facility] Address [address] [place], [place] [id number] Care Team Providers Care Funeral Home Makeup Artist Name Role Phone Zarina Tafoya PCP Allergies [...] daily Augmentin 875-125 mg oral tablet 02/15/2017 take 1 tablet by oral route every [...] before or 2 hours after a meal Problem List Description Status Onset Arthritis unspecified Active 1977 Hypertension Active 1979 Thyroid disorder Active Vital Signs Date Time BP-Sys(mm[Hg] BP-Felisa(mm[Hg]) HR(bpm) RR(rpm) Temp WT HT HC BMI BSA BMI Percentile O2 Sat(%) 02/15/2017 1:23:00 PM 130 mmHg 76 mmHg [...] Status 05/14/2009 12:00 AM Kenalog 40 Mg Im-Ndc#4658-8719-40 Reviewed 05/14/2009 12:00 AM HOT OR COLD [...] upper respiratory infection Feb 15 2017 1:28PM Payers Insurance Name Company Name Plan Name Plan Number Policy Number Policy Group Number Start Date Medicare Part B [employer] [place] [id number] Monday[id number]/A History of Encounters Visit Date Visit Type Provider 02/15/2017 Office visit Zarina Tafoya [employer] 12/09/2016 [facility] Travis Geronimo MD 03/19/2015 [facility] Pj Munoz MD 03/02/2015 Office visit Pj Munoz MD 11/03/2011 Office visit Yfian Grace MD 08/12/2011 Office visit Yifan Grace [...]
--- OUTSIDE RECORDS SUMMARY | 2017-11-26 10:31 | XMS REPORT ---
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 Active 66186005 Problem Encounter for long-term (current) use of other medications V58.69 Active 969499136 Problem Major depressive disorder, recurrent episode, mild with anxious distress F33.0 Active 31320617 Problem Depressive disorder, not elsewhere classified 311 Active 25021339 ALLERGIES No Information ENCOUNTERS Encounter Location Date Diagnosis [place] [id number] [place] [address] 52269- 3026 Nov, [facility] [id number] [place] [address] 57510- 6467 Oct, Major depressive disorder, recurrent episode, mild with anxious distress F33.0 [place] [id number] [place] [address] 51092- 4651 Sep, Major depressive disorder, recurrent episode, mild with anxious distress F33.0 [facility] [id number] [place] [address] 61501- 6449 August, Major depressive disorder, recurrent episode, mild with anxious distress F33.0 [place] [address] [address]85- 0042 August, Major depressive disorder, recurrent episode, mild with anxious distress F33.0 ; Generalized anxiety disorder F41.1 and 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 [facility] [id number] [place] [address] 26676- 3278 Jul, Major depressive disorder, recurrent episode, mild with anxious distress F33.0 [facility] [id number] [place] [address] 26167- 9090 Jul, Major depressive disorder, recurrent episode, mild with anxious distress F33.0 [facility] [id number] [place] [address] 92531- 2248 Jun, Major depressive disorder, recurrent episode, mild with anxious distress F33.0 [facility] [id number] [place] [address] 75572- 0227 May, Major depressive disorder, recurrent episode, mild with anxious distress F33.0 [facility] [id number] [place] [address] 66739- 1295 May, Major depressive disorder, recurrent episode, mild with anxious distress F33.0 ; Generalized anxiety disorder F41.1 and 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 [facility] [id number] [place] [address] 33755- 3373 Apr, Major depressive disorder, recurrent episode, mild with anxious distress F33.0 [facility] [id number] [place] [address] 47416- 1865 Mar, Major depressive disorder, recurrent episode, mild with anxious distress F33.0 [facility] [id number] [place] [address] 53861- 4829 Feb, Major depressive disorder, recurrent episode, mild with anxious distress F33.0 [facility] [id number] [place] [address] 05200- 5365 Feb, Major depressive disorder, recurrent episode, mild with anxious distress F33.0 ; Generalized anxiety disorder F41.1 and 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 [facility] [id number] [place] [address] 46914- 9077 Jan, Major depressive disorder, recurrent episode, mild with anxious distress F33.0 [facility] [id number] [place] [address] 98971- 1712 Dec, Major depressive disorder, recurrent episode, mild with anxious distress F33.0 [facility] [address] [facility] [id number] [place] [address] 77391- 9257 Nov, Major depressive disorder, recurrent episode, mild with anxious distress F33.0 [facility] [address] [facility] [id number], [place] [address] 3470 Nov, [facility] [address] [facility] [id number] [place] [address] 66083- 0556 Nov, Major depressive disorder, recurrent episode, mild with anxious distress F33.0 ; Generalized anxiety disorder F41.1 and 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 [facility] [address] [facility] [id number] [place] [address] 60613- 3885 Oct, [facility] [address] [facility] [id number] [place] [address] 63843- 4420 Oct, Major depressive disorder, recurrent episode, mild with anxious distress F33.0 ; Generalized anxiety disorder F41.1 and 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 [facility] [address] [facility] [id number], [place] [address] 7257 Sep, Major depressive disorder, recurrent episode, mild with anxious distress F33.0 and Generalized anxiety disorder F41.1 [facility] [address] [facility] [id number], [place] [address]- 1606 Sep, [facility] [address] [facility] [id number], [place] [address]- 7904 Jul, Major depressive disorder, recurrent episode, mild with anxious distress F33.0 [facility] [address] [facility] [id number], [place] [address]- 6403 Jun, Major depressive disorder, recurrent episode, mild with anxious distress F33.0 [facility] [address] [facility] [id number], [place] [address]- 6467 May, Major depressive disorder, recurrent episode, mild with anxious distress F33.0 [facility] [address] [place] [address] 18341- 9375 16 May, 2016 Major depressive disorder, recurrent episode, mild with anxious distress F33.0 [facility] [id number] [place] [address] 45167- 8373 May, Major depressive disorder, recurrent episode, mild with anxious distress F33.0 and Generalized anxiety disorder F41.1 [facility] [id number] [place] [address] 10008- 5733 Jan, [facility] [id number] [place] [address] 15401- 9623 Dec, Major depressive disorder, recurrent episode, mild with anxious distress F33.0 and Insomnia, unspecified type G47.00 [facility] [id number] [place] [address] 53092- 4467 Sep, [facility] [id number] [place] [address] 67438- 9401 Sep, Major depressive disorder, recurrent episode, mild with anxious distress F33.0 [facility] [id number] [place] [address] 96497- 8117 August, [facility] [id number] [place] [address] 59668- 3741 August, Generalized anxiety disorder F41.1 [facility] [address] [place] [address] 94932- 2898 Jul, [facility] [address] [place] [address] 86181- 6799 Jul, [facility] [id number] [place] [address] 09926- 7812 May, [facility] [id number] [place] [address] 87252- 8701 Mar, [facility] [address] [place] [address] 13513- 0516 Mar, [facility] [address] [address]- 5854 15 Mar, 2015 Major depressive disorder, single episode, unspecified F32.9 and Generalized anxiety disorder F41.1 [facility] [address] [address]- 0874 13 Nov, 2014 Depressive disorder, not elsewhere classified 311 and Generalized anxiety disorder 300.02 [facility] [id number] [place] [address] 47485- 1860 07 Nov, 2014 [facility] [id number] [place] [address] 39550- 9600 09 Oct, 2014 [facility] [id number] [place] [address] 20680- 3299 Sep, [facility] [address] [id number] [address]- 2803 Sep, [facility] [id number] [place] [address] 28097- 1963 August, Depressive disorder, not elsewhere classified 311 and Generalized anxiety disorder 300.02 [facility] [address], [place] [address]- 0705 August, [facility] [address], [place] [address]- 3488 14 Jul, 2014 [facility] [address] [address]- 0718 Jul, [facility] [address], [place] [address]- 3427 Apr, [facility] [address], [place] [address]- 9040 Apr, [facility] [address] [address]- 8969 15 Mar, 2014 [facility] [address] [address]- 6871 15 Mar, 2014 [facility] [id number] [address]- 2589 15 Mar, 2014 [facility] [place] [facility] [address] [id number] [place] [address]- 6259 15 Mar, 2014 [facility] [place] [facility] [address] [id number] [place] [address]- 3518 15 Mar, 2014 [facility] [place] [facility] [address] [id number] [place] [address]- 4202 15 Mar, 2014 [facility] [place] [facility] [address] [id number] [place] [address]- 7558 Feb, [facility] [place] [facility] [address] [id number] [place] 4230 Feb, [facility] [place] [facility] [address] [id number] [place] [address]- 8722 14 Jan, 2014 [facility] [place] [facility] [address] [id number] [place] [address]- 3040 14 Jan, 2014 [facility] [place] [facility] [address] [id number] [place] [address]- 0612 09 Dec, 2013 [facility] [place] [facility] [address] [id number] [place] [address]- 2252 Dec, [facility] [place] [facility] [address] [id number] [place] [address]- 1351 15 Nov, 2013 [facility] [place] [facility] [address] [id number] [place] [address]- 8762 Nov, [facility] [place] [facility] [address] [id number] [place] [address]- 6993 Oct, [facility] [place] [facility] [address] [id number] [place] [address]- 7721 Oct, [facility] [place] [facility] [address] [id number] [place] [address]- 7501 Oct, [facility] [place] [facility] [address] [id number] [place] [address]- 4515 Oct, [facility] [place] [facility] [address] [id number] [place] [address]- 4349 Sep, [facility] [place] [facility] [address] [id number] [place] [address]- 9747 Sep, [facility] [place] [facility] [address] [id number] [place] [address]- 2009 August, [facility] [place] [facility] [address] [id number] [place] [address]- 2817 August, [facility] [place] [facility] [address] [id number] [place] [address]- 1033 Jul, [facility] [place] [facility] [address] [id number] [place] [address]- 4489 Jul, [facility] [place] [facility] [address] [id number] [place] [address]- 5045 May, [facility] [place] [facility] [address] [id number] [place] [address]- 5941 May, [facility] [place] [facility] [address] [id number] [place] [address]- 5119 Apr, [facility] [place] [facility] [address] [id number] [place] [address]- 0491 Apr, [facility] [place] [facility] [address] [id number] [place] [address]- 5990 Apr, [facility] [place] [facility] [address] [id number], [place] [address]- 9694 Apr, [facility] [place] [facility] [address] [id number] [place] [address]- 7384 Apr, [facility] [place] [facility] [address] [id number] [place] [address]- 9468 Jan, [facility] [place] [facility] [address] [id number] [place] [address]- 3942 Jan, [facility] [place] [facility] [address] [id number] [place] [address]- 4849 Nov, [facility] [address] [id number] [place] [address]- 1041 Oct, [facility] [address] [id number] [place] [address]- 1771 August, [facility] [address] [id number] [place] [address]- 7545 Jul, [facility] [place] [facility] [address] [id number] [place] [address]- 1960 Jul, [facility] [address] [id number] [place] [address]- 7751 Jul, [facility] [address] [id number] [place] [address]- 0414 Apr, [facility] [address] [id number] [place] [address]- 4750 Apr, [facility] [address] [id number] [place] [address]- 9716 Apr, [facility] [address] [id number] [place] [address]- 3554 Jan, [facility] [address] [id number] [place] [address]- 1345 Jan, [facility] [address] [id number] [place] [address]- 3150 Dec, [facility] [address] [id number] [place] [address]- 1356 Oct, [facility] [place] [facility] [address] [id number] [place] [address]- 8134 Jul, [facility] [place] [facility] [address] [id number] [place] [address]- 5785 Jul, [facility] [address] [id number] [place] [address]- 6671 Jul, [facility] [address] [id number] [address]- 4160 Jun, [facility] [address], [place] [address]- 0969 Mar, [facility] [address] 0649 Mar, [facility] [address], [place] [address]- 3533 Feb, [facility] [address], [place] [address]- 3282 Feb, [facility] [address], [place] [address]- 0630 Mar, [facility] [address], [place] [address]- 8804 Feb, [facility] [address], [place] [address]- 7508 Feb, [facility] [address], [place] [address]- 2121 Feb, [facility] [address], [place] [address]- 0248 Jan, [facility] [id number], [place] [address]- 1756 Jan, IMMUNIZATIONS No Known Immunizations SOCIAL HISTORY Never Assessed REASON FOR VISIT Controlled med refill PLAN OF CARE VITAL SIGNS MEDICATIONS Medication [...] childbirth Hospitalization History ECT treatments x 20, [place] inpatient psychiatric about x 4 Hospitalization History stroke hospitalized for two nights 11/2016
--- OUTSIDE RECORDS SUMMARY | 2017-11-26 10:31 | XMS REPORT ---
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 Active 02835700 Problem Encounter for long-term (current) use of other medications V58.69 Active 609063061 Problem Major depressive disorder, recurrent episode, mild with anxious distress F33.0 Active 97797165 Problem Depressive disorder, not elsewhere classified 311 Active [id number] ALLERGIES No Information ENCOUNTERS Encounter Location Date Diagnosis [place] [id number] [place] [address]608- [address]013 August, [place] [id number] [place] [address] 24650- 6494 Jun, Major depressive disorder, recurrent episode, mild with anxious distress F33.0 [place] [id number] [place] [address] 42072- 7348 May, Major depressive disorder, recurrent episode, mild with anxious distress F33.0 [facility] [id number] [place] [address] 24595- 9670 May, Major depressive disorder, recurrent episode, mild with anxious distress F33.0 ; Generalized anxiety disorder F41.1 and 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 [facility] [id number] [place] [address] 50982- 3457 Apr, Major depressive disorder, recurrent episode, mild with anxious distress F33.0 [place] [id number] [place] [address] 83988- 0514 Mar, Major depressive disorder, recurrent episode, mild with anxious distress F33.0 [facility] [address] [facility] [id number] [address] Feb, Major depressive disorder, recurrent episode, mild with anxious distress F33.0 [facility] [place] [facility] [address] [facility] [id number] [address] 3472 Feb, Major depressive disorder, recurrent episode, mild with anxious distress F33.0 ; Generalized anxiety disorder F41.1 and 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 [facility] [address] [facility] [id number] [address]117 Jan, Major depressive disorder, recurrent episode, mild with anxious distress F33.0 [facility] [place] [facility] [address] [facility] [id number] [address] Dec, Major depressive disorder, recurrent episode, mild with anxious distress F33.0 [facility] [address] [facility] [id number] [address] Nov, Major depressive disorder, recurrent episode, mild with anxious distress F33.0 [facility] [place] [facility] [address] [facility] [id number] [address] 78[address] Nov, [facility] [place] [facility] [address] [facility] [id number] [address] 6427 Nov, Major depressive disorder, recurrent episode, mild with anxious distress F33.0 ; Generalized anxiety disorder F41.1 and 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 [facility] [place] [facility] [address] [facility] [id number] [address] 1308 Oct, [facility] [place] [facility] [address] [facility] [id number] [address]- 3229 Oct, Major depressive disorder, recurrent episode, mild with anxious distress F33.0 ; Generalized anxiety disorder F41.1 and 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 [facility] [place] [facility] [address] [facility] [id number] [address] 2810 Sep, Major depressive disorder, recurrent episode, mild with anxious distress F33.0 and Generalized anxiety disorder F41.1 [facility] [id number] [address] 8025 Sep, [facility] [id number] [place] [address] 04983- 1950 Jul, Major depressive disorder, recurrent episode, mild with anxious distress F33.0 [facility] [id number] [place] [address] 48409- 2423 Jun, Major depressive disorder, recurrent episode, mild with anxious distress F33.0 [facility] [id number] [place] [address] 32123- 1188 May, Major depressive disorder, recurrent episode, mild with anxious distress F33.0 [facility] [id number] [place] [address] 93738- 5228 May, Major depressive disorder, recurrent episode, mild with anxious distress F33.0 [facility] [id number] [place] [address] 92485- 4637 May, Major depressive disorder, recurrent episode, mild with anxious distress F33.0 and Generalized anxiety disorder F41.1 [facility] [id number] [address]- 2684 Jan, [facility] [id number] [place] [address] 64876- 1896 Dec, Major depressive disorder, recurrent episode, mild with anxious distress F33.0 and Insomnia, unspecified type G47.00 [facility] [id number] [address]- 2984 Sep, [facility] [id number] [place] [address] 32297- 7693 Sep, Major depressive disorder, recurrent episode, mild with anxious distress F33.0 [facility] [id number] [place] [address] 46567- 7322 August, [place] [id number] [address]- 7637 August, Generalized anxiety disorder F41.1 [facility] [id number] [address]- 3802 Jul, [facility] [address]65100[place] [address]- 3573 Jul, [facility] [address]00565100[place] [address]- 3062 May, [facility] [address]65100[place] [address]149 Mar, [facility] [address] [place] [address] 60943- 5479 Mar, [facility] [address]100[place] [address]- 0487 Mar, Major depressive disorder, single episode, unspecified F32.9 and Generalized anxiety disorder F41.1 [facility] [address]65100[place] [address]- 1037 Nov, Depressive disorder, not elsewhere classified 311 and Generalized anxiety disorder 300.02 [facility] [address]65100[place] [address]- 7810 Nov, [facility] [address]65100[place] [address]- 1853 Oct, [facility] [address] [id number] [address]- 9661 Sep, [facility] [address] [id number] [address]- 1932 Sep, [facility] [address] [address] August, Depressive disorder, not elsewhere classified 311 and Generalized anxiety disorder 300.02 [facility] [address]65100[place] [address]- 2167 August, [facility] [place] [facility] [address] [id number] [place] [address]- 2421 14 Jul, 2014 [facility] [place] [facility] [address] [id number] [place] [address]- 2614 13 Jul, 2014 [facility] [place] [facility] [address] [id number] [place] [address]- 6797 13 Apr, 2014 [facility] [place] [facility] [address] [id number] [place] [address]- 3515 13 Apr, 2014 [facility] [place] [facility] [address] [id number] [place] [address]- 9688 15 Mar, 2014 [facility] [place] [facility] [address] [id number] [place] [address]- 8518 15 Mar, 2014 [facility] [place] [facility] [address] [id number] [place] [address]- 9474 15 Mar, 2014 [facility] [place] [facility] [address] [id number] [place] [address]- 8550 15 Mar, 2014 [facility] [place] [facility] [address] [id number] [place] [address]- 1079 15 Mar, 2014 [facility] [place] [facility] [address] [id number] [place] [address]- 8658 15 Mar, 2014 [facility] [place] [facility] [address] [id number] [place] [address]- 0200 11 Feb, 2014 [facility] [place] [facility] [address] [id number] [address]- 8687 Feb, [facility] [place] [facility] [address] [id number] [place] [address]- 2870 14 Jan, 2014 [facility] [place] [facility] [address] [id number] [place] [address]- 8876 14 Jan, 2014 [facility] [place] [facility] [address] [id number] [place] 9894 09 Dec, 2013 [facility] [place] [facility] [address] [id number] [address]- 8134 Dec, [facility] [place] [facility] [address] [id number] [place] [address]- 1236 Nov, [facility] [place] [facility] [address] [id number] [place] [address]- 2389 Nov, [facility] [place] [facility] [address] [id number] [place] [address]- 7815 Oct, [facility] [place] [facility] [address] [id number] [place] [address]- 0483 Oct, [facility] [place] [facility] [address] [id number] [place] [address]- 9318 Oct, [facility] [place] [facility] [address] [id number] [place] [address]- 7641 Oct, [facility] [place] [facility] [address] [id number] [place] [address]- 0492 Sep, [facility] [place] [facility] [address] [id number] [place] [address]- 1848 Sep, [facility] [place] [facility] [address] [id number] [place] [address]- 2011 August, [facility] [place] [facility] [address] [id number] [place] [address]- 0817 August, [facility] [place] [facility] [address] [id number] [place] [address]- 7010 Jul, [facility] [place] [facility] [address] [id number] [place] [address]- 4512 Jul, [facility] [place] [facility] [address] [id number] [place] [address]- 9101 May, [facility] [place] [facility] [address] [id number] [place] [address]- 0221 May, [facility] [place] [facility] [address] [id number] [place] [address]- 7641 Apr, [facility] [place] [facility] [address] [id number] [place] [address]- 8080 17 Apr, 2013 [facility] [place] [facility] [address] [id number] [place] 6407 Apr, [facility] [place] [facility] [address] [id number] [place] [address]- 9811 Apr, [facility] [place] [facility] [address] [id number] [place] [address]- 8633 Apr, [facility] [place] [facility] [address] [id number] [place] [address]- 0574 Jan, [facility] [place] [facility] [address] [id number] [place] [address]- 3026 Jan, [facility] [place] [facility] [address] [id number] [place] [address]- 6261 Nov, [facility] [place] [facility] [address] [id number] [place] [address]- 9782 Oct, [facility] [place] [facility] [address] [id number] [place] [address]- 1406 August, [facility] [place] [facility] [address] [id number] [place] [address]- 6214 Jul, [facility] [place] [facility] [address] [id number] [place] [address]- 6009 Jul, [facility] [place] [facility] [address] [id number] [place] [address]- 4284 Jul, [facility] [place] [facility] [address] [id number] [place] [address]- 9038 Apr, [facility] [place] [facility] [address] [id number] [place] [address]- 4066 Apr, [facility] [place] [facility] [address] [id number] [place] [address]- 4067 Apr, [facility] [place] [facility] [address] [id number] [place] [address]- 9933 Jan, [facility] [place] [facility] [address] [id number] [place] [address]- 9784 23 Jan, 2012 [facility] [place] [facility] [address] [id number] [place] [address]- 3241 Dec, [facility] [place] [facility] [address] [id number] [place] [address]- 6190 Oct, [facility] [place] [facility] [address] [id number] [place] [address]- 0559 Jul, [facility] [place] [facility] [address] [id number] [place] [address]- 1734 24 Jul, 2011 [facility] [place] [facility] [address] [id number] [place] [address]- 4995 Jul, [facility] [place] [facility] [address] [id number] [place] [address]- 8788 Jun, [facility] [place] [facility] [address] [id number] [place] [address]- 4619 14 Mar, 2011 [facility] [place] [facility] [address] [id number] [place] [address]- 5555 14 Mar, 2011 [facility] [place] [facility] [address] [id number] [place] [address]- 7667 14 Feb, 2011 [facility] [place] [facility] [address] [id number] [address]- 5697 14 Feb, 2011 [facility] [place] [facility] [address] [id number] [address]- 5967 28 Mar, 2010 [facility] [place] [facility] [address] [id number] [place] [address]- 8368 24 Feb, 2010 [facility] [place] [facility] [address] [id number] [place] [address]- 8668 10 Feb, 2010 [facility] [place] [facility] [address] [id number] [place] [address]- 7683 08 Feb, 2010 [facility] [place] [facility] [address] [facility] [id number] [place] [address]- 3358 Jan, [facility] [address] [facility] [id number] [place] [address]- 0783 Jan, IMMUNIZATIONS No Known Immunizations SOCIAL HISTORY Never Assessed REASON FOR VISIT Medication refill request PLAN OF CARE VITAL SIGNS MEDICATIONS Unknown Medications RESULTS No Results PROCEDURES No Known procedures [...] childbirth Hospitalization History ECT treatments x 20, [place] inpatient psychiatric about x 4 Hospitalization History stroke hospitalized for two nights 11/2016
--- OUTSIDE RECORDS SUMMARY | 2017-11-26 10:31 | XMS REPORT ---
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 Active 95995065 Problem Encounter for long-term (current) use of other medications V58.69 Active 762233162 Problem Major depressive disorder, recurrent episode, mild with anxious distress F33.0 Active 90763892 Problem Depressive disorder, not elsewhere classified 311 Active 23240759 ALLERGIES No Information ENCOUNTERS Encounter Location Date Diagnosis [place] [id number] [place] [address] 70585- 1872 Nov, [place] [address] [place] [id number] [place] [address] 68215- 3764 August, Major depressive disorder, recurrent episode, mild with anxious distress F33.0 ; Generalized anxiety disorder F41.1 and 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 [facility] [id number] [place] [address] 76069- 9065 Jul, Major depressive disorder, recurrent episode, mild with anxious distress F33.0 [facility] [id number] [place] [address] 33606- 4603 Jul, Major depressive disorder, recurrent episode, mild with anxious distress F33.0 [facility] [address] [place] [id number] [place] [address] 91492- 8553 Jun, Major depressive disorder, recurrent episode, mild with anxious distress F33.0 [place] [address] [place] [id number] [place] [address] 82431- 0765 May, Major depressive disorder, recurrent episode, mild with anxious distress F33.0 [facility] [id number] [place] [address] 64951- 3000 May, Major depressive disorder, recurrent episode, mild with anxious distress F33.0 ; Generalized anxiety disorder F41.1 and 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 [facility] [id number] [place] [address] 39718- 7703 Apr, Major depressive disorder, recurrent episode, mild with anxious distress F33.0 [facility] [id number] [place] [address] 44674- 6418 Mar, Major depressive disorder, recurrent episode, mild with anxious distress F33.0 [facility] [id number] [place] [address] 00011- 1066 Feb, Major depressive disorder, recurrent episode, mild with anxious distress F33.0 [facility] [id number] [place] [address] 91376- 2929 Feb, Major depressive disorder, recurrent episode, mild with anxious distress F33.0 ; Generalized anxiety disorder F41.1 and 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 [facility] [address] [place] [address] 72569- 8876 Jan, Major depressive disorder, recurrent episode, mild with anxious distress F33.0 [facility] [id number] [place] [address] 22543- 8200 Dec, Major depressive disorder, recurrent episode, mild with anxious distress F33.0 [facility] [id number] [place] [address] 45589- 3152 Nov, Major depressive disorder, recurrent episode, mild with anxious distress F33.0 [facility] [id number] [place] [address] 31642- 5949 Nov, [facility] [id number] [place] [address] 01233- 9293 Nov, Major depressive disorder, recurrent episode, mild with anxious distress F33.0 ; Generalized anxiety disorder F41.1 and 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 [facility] [id number], [place] [address] 7065 Oct, [facility] [id number] [place] [address] 23746- 5369 Oct, Major depressive disorder, recurrent episode, mild with anxious distress F33.0 ; Generalized anxiety disorder F41.1 and 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 [facility] [id number] [address] 9505 Sep, Major depressive disorder, recurrent episode, mild with anxious distress F33.0 and Generalized anxiety disorder F41.1 [facility] [id number] [place] [address] 59771- 8989 Sep, [facility] [id number] [place] [address] 69962- 5796 Jul, Major depressive disorder, recurrent episode, mild with anxious distress F33.0 [facility] [id number] [address]- 6534 Jun, Major depressive disorder, recurrent episode, mild with anxious distress F33.0 [facility] [id number] [place] [address] 84788- 5771 May, Major depressive disorder, recurrent episode, mild with anxious distress F33.0 [facility] [id number] [place] [address] 05436- 4740 May, Major depressive disorder, recurrent episode, mild with anxious distress F33.0 [facility] [id number] [place] [address] 80991- 5065 May, Major depressive disorder, recurrent episode, mild with anxious distress F33.0 and Generalized anxiety disorder F41.1 [facility] [id number] [address]- 0112 Jan, [facility] [id number] [address]- 7667 Dec, Major depressive disorder, recurrent episode, mild with anxious distress F33.0 and Insomnia, unspecified type G47.00 [facility] [id number] [place] [address] 61528- 1443 Sep, [facility] [id number] [place] [address] 63545- 0944 Sep, Major depressive disorder, recurrent episode, mild with anxious distress F33.0 [facility] [id number] [place] [address] 26624- 2705 August, [facility] [id number] [place] [address] 55949- 7101 August, Generalized anxiety disorder F41.1 [facility] [id number] [place] [address] 25762- 6800 Jul, [facility] [address] [id number] [place] [address] 50039- 4263 Jul, [facility] [address] [id number] [place] [address] 44987- 9463 May, [facility] [address] [id number] [place] [address] 45961- 3637 Mar, [facility] [address] [address]- 0273 Mar, [facility] [id number] [place] [address] 26878- 5066 Mar, Major depressive disorder, single episode, unspecified F32.9 and Generalized anxiety disorder F41.1 [facility] [id number] [place] [address] 95474- 7251 Nov, Depressive disorder, not elsewhere classified 311 and Generalized anxiety disorder 300.02 [facility] [address] [place] [address] 43238- 4244 Nov, [facility] [id number] [address]- 8044 09 Oct, 2014 [facility] [id number] [address]- 4156 10 Sep, 2014 [facility] [address], [place] [address]- 3762 10 Sep, 2014 [facility] [address], [place] [address]- 8898 14 Aug, 2014 Depressive disorder, not elsewhere classified 311 and Generalized anxiety disorder 300.02 [facility] [address] [facility] [id number] [place] [address]- 3613 12 Aug, 2014 [facility] [address] [place] [id number] [place] [address], [place] [address]- 3119 14 Jul, 2014 [facility] [address], [place] [address]- 7982 13 Jul, 2014 [facility] [address] [id number] [place] [address] 99704- 7172 13 Apr, 2014 [facility] [address], [place] [address]- 9871 Apr, [facility] [address], [place] [address]- 0438 15 Mar, 2014 [facility] [address], [place] [address]- 3822 15 Mar, 2014 [facility] [address], [place] [address]- 1920 15 Mar, 2014 [facility] [id number] [place] [address]- 3361 15 Mar, 2014 [facility] [address] [place] [address]- 0521 15 Mar, 2014 [facility] [id number], [place] [address]- 3910 15 Mar, 2014 [facility] [address], [place] [address]- 5847 Feb, [facility] [place] [facility] [address] [id number] [place] [address]- 5410 Feb, [facility] [place] [facility] [address] [id number] [place] [address]- 3672 Jan, [facility] [place] [facility] [address] [id number] [place] [address]- 1075 Jan, [facility] [place] [facility] [address] [id number] [place] [address]- 1081 Dec, [facility] [place] [facility] [address] [id number] [place] 6012 Dec, [facility] [place] [facility] [address] [id number] [place] [address]- 8987 Nov, [facility] [place] [facility] [address] [id number] [place] [address]- 5919 Nov, [facility] [place] [facility] [address] [id number] [place] [address]- 2238 Oct, [facility] [place] [facility] [address] [id number] [place] [address]- 0710 Oct, [facility] [place] [facility] [address] [id number] [place] [address]- 7271 Oct, [facility] [place] [facility] [address] [id number] [place] [address]- 1300 Oct, [facility] [place] [facility] [address] [id number] [place] [address]- 8745 Sep, [facility] [place] [facility] [address] [id number] [place] [address]- 3876 Sep, [facility] [place] [facility] [address] [id number] [place] [address]- 3931 August, [facility] [place] [facility] [address] [id number] [place] [address]- 6958 August, [facility] [place] [facility] [address] [id number] [place] [address]- 3032 16 Jul, 2013 [facility] [address] [id number] [place] [address]- 8650 Jul, [facility] [place] [facility] [address] [id number] [place] [address]- 6505 13 May, 2013 [facility] [address] [id number] [place] [address]- 2841 May, [facility] [place] [facility] [address] [id number] [place] [address]- 6512 17 Apr, 2013 [facility] [address] [id number] [place] [address]- 8248 Apr, [facility] [place] [facility] [address] [id number] [place] [address]- 0592 Apr, [facility] [place] [facility] [address] [id number] [place] [address]- 8025 Apr, [facility] [address] [id number] [place] [address]- 4833 Apr, [facility] [address] [id number] [place] [address]- 1460 Jan, [facility] [address] [id number] [place] [address]- 8754 Jan, [facility] [place] [facility] [address] [id number] [place] [address]- 5926 Nov, [facility] [place] [facility] [address] [id number] [place] [address]- 1242 Oct, [facility] [place] [facility] [address] [id number] [place] [address]- 4346 August, [facility] [place] [facility] [address] [id number] [place] [address]- 0966 Jul, [facility] [place] [facility] [address] [id number] [place] [address]- 7310 Jul, [facility] [address] [id number] [place] [address]- 2659 Jul, [facility] [place] [facility] [address] [id number] [place] [address]- 3531 Apr, [facility] [place] [facility] [address] [id number] [place] [address]- 5984 Apr, [facility] [place] [facility] [address] [id number] [place] [address]- 8204 Apr, [facility] [address] [id number] [place]- 6088 Jan, [facility] [place] [facility] [address] [id number] [place] [address]- 7305 Jan, [facility] [place] [facility] [address] [id number] [place] [address]- 1040 Dec, [facility] [place] [facility] [address] [id number] [place] [address]- 1186 Oct, [facility] [place] [facility] [address] [id number] [place] [address]- 0026 Jul, [facility] [place] [facility] [address] [id number] [place] [address]- 6712 Jul, [facility] [place] [facility] [address] [id number] [place] [address]- 8080 Jul, [facility] [place] [facility] [address] [id number] [address]- 6793 Jun, [facility] [place] [facility] [address] [id number] [place] [address]- 0908 Mar, [facility] [place] [facility] [address] [id number] [place] [address]- 4889 Mar, [facility] [place] [facility] [address] [id number] [place] [address]- 7651 Feb, [facility] [place] [facility] [id number], [place] [address]- 3970 14 Feb, 2011 [facility] [id number], [place] [address]- 3958 Mar, [facility] [id number], [place] [address]- 1754 Feb, [facility] [id number], [place] [address]- 3147 Feb, [facility] [id number] [address]- 2931 Feb, [facility] [address], [place] [address]- 5955 Jan, [facility] [id number], [place] [address]- 5779 Jan, IMMUNIZATIONS No Known Immunizations SOCIAL HISTORY Never Assessed REASON FOR VISIT xanax/ambien refill PLAN OF CARE VITAL SIGNS MEDICATIONS Medication Instructions Dosage Frequency Start Date End Date Duration Status Ambien 10 MG Orally Once a day 1 tablet at bedtime as needed 24h 30 days Active Celexa 20 MG 1.5 TABLET ONCE A DAY ORALLY 30 DAYS 30 Active Alprazolam 1 MG Orally daily- no early refills TAKE ONE TABLET BY MOUTH FOUR TIMES DAILY NEEDED 30 days Active RESULTS No Results PROCEDURES [...] childbirth Hospitalization History ECT treatments x 20, [place] inpatient [facility] about x 4 Hospitalization History stroke hospitalized for two nights 11/2016
--- OUTSIDE RECORDS SUMMARY | 2017-11-26 10:31 | XMS REPORT ---
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 Active 54880488 Problem Encounter for long-term (current) use of other medications V58.69 Active 627260941 Problem Major depressive disorder, recurrent episode, mild with anxious distress F33.0 Active 20413980 Problem Depressive disorder, not elsewhere classified 311 Active 46968503 ALLERGIES No Known Allergies SOCIAL HISTORY Never Assessed PLAN OF CARE Activity Details Follow Up 4 Months Reason: VITAL SIGNS Height 65.5 in 2016-05-22 Weight 242.6 lbs 2016-05-22 Heart Rate 84 bpm 2016-05-22 Respiratory Rate 20 2016-05-22 BMI 39.75 kg/m2 2016-05-22 Blood pressure systolic 120 mmHg 2016-05-22 Blood pressure diastolic 77 mmHg 2016-05-22 MEDICATIONS Medication Instructions Dosage Frequency Start Date End Date Duration Status Estropipate by Oral route Apr, Active Benazepril-Hydrochlorothiazide 10-12.5 mg 1 Tablet by Oral route 1 time per day Apr, Active Reglan 10 mg 1 Tablet by Oral route 4 times per day Apr, Active Ambien 10 mg Orally Once a day 1 tablet at bedtime as needed 24h Apr, Active Lovastatin 20 mg 1 Tablet by Oral route 1 time per day Apr, Active Alprazolam 1 MG TAKE ONE TABLET BY MOUTH FOUR TIMES DAILY NEEDED Active Celexa 20 MG Orally Once a day 1 tablet 24h Active Citalopram Hydrobromide 20 MG TAKE ONE AND ONE-HALF TABLETS BY MOUTH ONCE DAILY 30 Active RESULTS No Results PROCEDURES Procedure Date Ordered Result Body Site [facility] VISIT ESTABLISHED PATIENT May 22, 2016 IMMUNIZATIONS No Known Immunizations MEDICAL (GENERAL) HISTORY Type Description Date Medical History HTN Medical History GI concerns, ruling out cancer, possible dilated small intestines, have upper and lower scopes Nov 18 2016 Medical History Elevated liver enzymes (told recently) Medical History hyperlipidemia Medical History colon blockage, bowel resection in 2012 Surgical History cholecystecomty, small intestine blockage, bariatric surgery , appendectomy, tonsillectomy, hysterectomy Hospitalization History Surgical and childbirth Hospitalization History ECT treatments x 20, [place] inpatient psychiatric about x 4
--- OUTSIDE RECORDS SUMMARY | 2017-11-26 10:31 | XMS REPORT ---
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 Active 39081110 Problem Encounter for long-term (current) use of other medications V58.69 Active 736597046 Problem Major depressive disorder, recurrent episode, mild with anxious distress F33.0 Active 45949199 Problem Depressive disorder, not elsewhere classified 311 Active 82434849 ALLERGIES No Information ENCOUNTERS Encounter Location Date Diagnosis [place] [id number] [place] [address] 70567- 6172 August, [facility] [place] [id number] [place] [address] 06518- 6617 Jul, [place] [id number] [place] [address] 85077- 8902 Jun, Major depressive disorder, recurrent episode, mild with anxious distress F33.0 [facility] [place] [id number] [place] [address] 18617- 0724 May, Major depressive disorder, recurrent episode, mild with anxious distress F33.0 [facility] [place] [id number] [place] [address] 36373- 7165 May, Major depressive disorder, recurrent episode, mild with anxious distress F33.0 ; Generalized anxiety disorder F41.1 and 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 [facility] [place] [id number] [place] [address] 32146- 5472 Apr, Major depressive disorder, recurrent episode, mild with anxious distress F33.0 [facility] [place] [address] [facility] [id number], [place] [address] Mar, Major depressive disorder, recurrent episode, mild with anxious distress F33.0 [facility] [address] [facility] [id number], [place] [address]451 Feb, Major depressive disorder, recurrent episode, mild with anxious distress F33.0 [facility] [place] [id number] [place] [address] 11701- 4126 Feb, Major depressive disorder, recurrent episode, mild with anxious distress F33.0 ; Generalized anxiety disorder F41.1 and 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 [facility] [place] [id number] [place] [address] 15390- 0802 Jan, Major depressive disorder, recurrent episode, mild with anxious distress F33.0 [facility] [place] [id number] [place] [address] 23775- 9066 Dec, Major depressive disorder, recurrent episode, mild with anxious distress F33.0 [facility] [id number] [place] [address] 96514- 2684 Nov, Major depressive disorder, recurrent episode, mild with anxious distress F33.0 [facility] [place] [id number] [place] [address] 32443- 0548 Nov, [facility] [place] [id number] [place] [address] 61000- 0875 Nov, Major depressive disorder, recurrent episode, mild with anxious distress F33.0 ; Generalized anxiety disorder F41.1 and 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 [facility] [place] [address] [facility] [id number], [place] [address] 1174 Oct, [facility] [place] [facility] [id number] [place] [address] 73875- 4336 Oct, Major depressive disorder, recurrent episode, mild with anxious distress F33.0 ; Generalized anxiety disorder F41.1 and 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 [facility] [place] [address] [address] Sep, Major depressive disorder, recurrent episode, mild with anxious distress F33.0 and Generalized anxiety disorder F41.1 [facility] [place] [address] [address] 06 Sep, 2016 [facility] [place] [id number] [place] [address] 05122- 1155 Jul, Major depressive disorder, recurrent episode, mild with anxious distress F33.0 [facility] [place] [id number] [place] [address] 01920- 3550 Jun, Major depressive disorder, recurrent episode, mild with anxious distress F33.0 [facility] [place] [id number] [place] [address] 49090- 6011 17 May, 2016 Major depressive disorder, recurrent episode, mild with anxious distress F33.0 [place] [id number] [place] [address] 56568- 6490 May, Major depressive disorder, recurrent episode, mild with anxious distress F33.0 [place] [id number] [place] [address] 43433- 2994 May, Major depressive disorder, recurrent episode, mild with anxious distress F33.0 and Generalized anxiety disorder F41.1 [facility] [id number] [place] [address] 76050- 5443 Jan, [facility] [id number] [place] [address] 17971- 8312 15 Dec, 2015 Major depressive disorder, recurrent episode, mild with anxious distress F33.0 and Insomnia, unspecified type G47.00 [facility] [id number] [place] [address] 36037- 0504 Sep, [facility] [place] [id number] [place] [address] 44866- 9649 14 Sep, 2015 Major depressive disorder, recurrent episode, mild with anxious distress F33.0 [place] [address] [address] 6503 August, [facility] [place] [address] 2607 August, Generalized anxiety disorder F41.1 [facility] [place] [address], [place] [address]- 9911 Jul, [facility] [place] [id number] [place] [address] 85415- 0133 Jul, [facility] [place] [address] [address]- 7753 May, [facility] [place] [id number] [place] [address] 711711- 8234 Mar, [facility] [place] [address] [address]- 8305 Mar, [facility] [id number] [address]- 2365 Mar, Major depressive disorder, single episode, unspecified F32.9 and Generalized anxiety disorder F41.1 [facility] [place] [address], [place] [address]- 9971 Nov, Depressive disorder, not elsewhere classified 311 and Generalized anxiety disorder 300.02 [facility] [place] [address] [address]- 4610 Nov, [facility] [place] [address], [place] [address]- 9656 Oct, [facility] [place] [id number] [address]- 9803 Sep, [facility] [place] [address], [place] [address]- 6072 Sep, [facility] [id number] [address]- 1749 August, Depressive disorder, not elsewhere classified 311 and Generalized anxiety disorder 300.02 [facility] [address] [id number] [place] [address]- 3723 12 Aug, 2014 [facility] [address] [id number] [place] [address]- 2992 14 Jul, 2014 [facility] [address] [facility] [id number] [place] [address]- 6498 13 Jul, 2014 [facility] [address] [id number] [place] [address]- 2154 13 Apr, 2014 [facility] [address] [id number] [place] [address]- 4468 13 Apr, 2014 [facility] [address] [id number] [place] [address]- 4993 15 Mar, 2014 [facility] [address] [facility] [id number] [place] [address]- 9789 15 Mar, 2014 [facility] [address] [facility] [id number], [place] [address]- 7437 15 Mar, 2014 [facility] [address] [facility] [id number] [place] [address]- 1574 15 Mar, 2014 [facility] [address] [facility] [id number], [place] [address]- 2004 15 Mar, 2014 [facility] [address] [facility] [id number], [place] [address]- 1450 15 Mar, 2014 [facility] [address] [facility] [id number], [place] [address]- 1574 11 Feb, 2014 [facility] [place] [facility] [address] [facility] [id number], [place] [address]- 4353 11 Feb, 2014 [facility] [place] [facility] [address] [facility] [id number], [place] [address]- 6600 14 Jan, [address] [place] [facility] [address] [facility] [id number], [place] [address]- 6423 14 Jan, 2014 [facility] [place] [facility] [address] [facility] [id number], [place] [address]- 9032 Dec, [facility] [place] [facility] [address] [id number] [place] [address]- 1278 Dec, [facility] [place] [facility] [address] [id number] [place] [address]- 9808 Nov, [facility] [place] [facility] [address] [id number] [place] [address]- 7509 Nov, [facility] [place] [facility] [address] [id number] [place] [address]- 4796 Oct, [facility] [place] [facility] [address] [id number] [place] [address]- 4405 Oct, [facility] [place] [facility] [address] [id number] [place] [address]- 6761 Oct, [facility] [place] [facility] [address] [id number] [place] [address]- 3682 Oct, [facility] [place] [facility] [address] [id number] [place] [address]- 0498 Sep, [facility] [place] [facility] [address] [id number] [place] [address]- 9206 Sep, [facility] [place] [facility] [address] [id number] [place] [address]- 3638 August, [facility] [place] [facility] [address] [id number] [place] [address]- 2130 August, [facility] [place] [facility] [address] [id number] [place] [address]- 8673 Jul, [facility] [place] [facility] [address] [id number] [place] [address]- 8485 Jul, [facility] [place] [facility] [address] [id number] [place] [address]- 9566 May, [facility] [place] [facility] [address] [id number] [place] [address]- 1892 May, [facility] [place] [facility] [address] [id number] [place] [address]- 1615 17 Apr, 2013 [facility] [place] [facility] [address] [id number] [place] [address]- 6199 Apr, [facility] [place] [facility] [address] [id number] [place] [address]- 3756 Apr, [facility] [place] [facility] [address] [id number] [place] [address]- 3271 Apr, [facility] [place] [facility] [address] [id number] [place] [address]- 7584 Apr, [facility] [place] [facility] [address] [id number] [place] [address]- 6198 Jan, [facility] [place] [facility] [address] [id number] [place] [address]- 6081 Jan, [facility] [place] [facility] [address] [id number] [place] [address]- 3771 Nov, [facility] [place] [facility] [address] [id number] [place] [address]- 6887 Oct, [facility] [place] [facility] [address] [id number] [place] [address]- 5943 August, [facility] [place] [facility] [address] [id number] [place] [address]- 6717 Jul, [facility] [place] [facility] [address] [id number] [place] [address]- 3408 Jul, [facility] [place] [facility] [address] [id number] [place] [address]- 1041 Jul, [facility] [place] [facility] [address] [id number] [place] [address]- 1651 Apr, [facility] [place] [facility] [address] [id number] [place] [address]- 6836 Apr, [facility] [place] [facility] [address] [id number] [place] [address]- 8002 Apr, [facility] [address] [id number] [place] [address]- 4047 Jan, [facility] [place] [facility] [address] [id number] [place] [address]- 4306 Jan, [facility] [place] [facility] [address] [id number] [place] [address]- 2004 Dec, [facility] [place] [facility] [address] [id number] [place] [address]- 9791 Oct, [facility] [address] [id number] [place] [address]- 5079 Jul, [facility] [place] [facility] [address] [id number] [place] [address]- 8378 Jul, [facility] [place] [facility] [address] [id number] [place] [address]- 1656 Jul, [facility] [place] [facility] [address] [id number] [place] [address]- 1545 Jun, [facility] [place] [facility] [address] [id number] [place] [address]- 0885 14 Mar, 2011 [facility] [place] [facility] [address] [id number] [place] [address]- 3065 14 Mar, 2011 [facility] [place] [facility] [address] [id number], [place] [address]- 7082 14 Feb, 2011 [facility] [place] [facility] [address] [id number], [place] [address]- 6361 14 Feb, 2011 [facility] [place] [facility] [address] [id number] [place] [address]- 4338 Mar, [facility] [place] [facility] [address] [id number], [place] [address]- 8978 24 Feb, 2010 [facility] [place] [facility] [address] [id number], [place] [address]- 5824 10 Feb, 2010 [facility] [place] [facility] [address] [facility] [id number] [place] [address]- 0471 Feb, [facility] [address] [facility] [id number] [place] [address]- 3756 Jan, [facility] [address] [facility] [id number] [place] [address]41 Jan, IMMUNIZATIONS No Known Immunizations SOCIAL HISTORY Never Assessed REASON FOR VISIT ambien/xanax refill PLAN OF CARE VITAL SIGNS MEDICATIONS [...] childbirth Hospitalization History ECT treatments x 20, [place] inpatient psychiatric about x 4 Hospitalization History stroke hospitalized for two nights 11/2016
--- OUTSIDE RECORDS SUMMARY | 2017-11-26 10:32 | XMS REPORT ---
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 Active 65278855 Problem Encounter for long-term (current) use of other medications V58.69 Active 892497653 Problem Major depressive disorder, recurrent episode, mild with anxious distress F33.0 Active 27598264 Problem Depressive disorder, not elsewhere classified 311 Active 29156846 ALLERGIES No Information SOCIAL HISTORY Never Assessed PLAN OF CARE VITAL SIGNS MEDICATIONS Medication Instructions Dosage Frequency Start Date End Date Duration Status Ambien 10 mg Orally Once a day 1 tablet at bedtime as needed 24h Apr, 30 days Active RESULTS No Results PROCEDURES No Known procedures IMMUNIZATIONS No Known Immunizations MEDICAL (GENERAL) HISTORY [...] childbirth Hospitalization History ECT treatments x 20, [place] inpatient psychiatric about x 4
--- OUTSIDE RECORDS SUMMARY | 2017-11-26 10:32 | XMS REPORT ---
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
--- OUTSIDE RECORDS SUMMARY | 2017-11-26 10:32 | XMS REPORT ---
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 Active 63684658 Problem Encounter for long-term (current) use of other medications V58.69 Active 882606576 Problem Major depressive disorder, recurrent episode, mild with anxious distress F33.0 Active 32147269 Problem Depressive disorder, not elsewhere classified 311 Active [id number] ALLERGIES No Information ENCOUNTERS Encounter Location Date Diagnosis [place] [id number] [place] [address] 80601- 7811 Nov, [place] [id number] [place] [address] 65364- 8263 Sep, Major depressive disorder, recurrent episode, mild with anxious distress F33.0 [place] [id number] [place] [address] 15192- 4698 August, Major depressive disorder, recurrent episode, mild with anxious distress F33.0 [place] [id number] [place] [address] 77602- 5785 August, Major depressive disorder, recurrent episode, mild with anxious distress F33.0 ; Generalized anxiety disorder F41.1 and 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 [facility] [id number] [place] [address] 50532- 8409 Jul, Major depressive disorder, recurrent episode, mild with anxious distress F33.0 [place] [id number] [place] [address] 24730- 3299 Jul, Major depressive disorder, recurrent episode, mild with anxious distress F33.0 [facility] [address] [address] Jun, Major depressive disorder, recurrent episode, mild with anxious distress F33.0 [facility] [id number] [place] [address] 39704- 9011 May, Major depressive disorder, recurrent episode, mild with anxious distress F33.0 [facility] [id number] [place] [address] 10754- 8133 May, Major depressive disorder, recurrent episode, mild with anxious distress F33.0 ; Generalized anxiety disorder F41.1 and 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 [facility] [id number] [place] [address] 55280- 8067 Apr, Major depressive disorder, recurrent episode, mild with anxious distress F33.0 [facility] [id number] [place] [address] 56033- 3309 Mar, Major depressive disorder, recurrent episode, mild with anxious distress F33.0 [facility] [id number] [place] [address] 77535- 6909 Feb, Major depressive disorder, recurrent episode, mild with anxious distress F33.0 [facility] [id number] [place] [address] 94169- 1794 Feb, Major depressive disorder, recurrent episode, mild with anxious distress F33.0 ; Generalized anxiety disorder F41.1 and 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 [facility] [address] [address] 7873 Jan, Major depressive disorder, recurrent episode, mild with anxious distress F33.0 [facility] [id number] [place] [address] 80384- 1748 Dec, Major depressive disorder, recurrent episode, mild with anxious distress F33.0 [facility] [id number] [place] [address] 09556- 7863 Nov, Major depressive disorder, recurrent episode, mild with anxious distress F33.0 [facility] [id number] [address]15 Nov, [facility] [id number] [place] [address] 44608- 0222 Nov, Major depressive disorder, recurrent episode, mild with anxious distress F33.0 ; Generalized anxiety disorder F41.1 and 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 [facility] [id number] [address] 2241 Oct, [facility] [id number] [place] [address] 62791- 2294 Oct, Major depressive disorder, recurrent episode, mild with anxious distress F33.0 ; Generalized anxiety disorder F41.1 and 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 [facility] [id number] [place] [address] 95834- 6132 Sep, Major depressive disorder, recurrent episode, mild with anxious distress F33.0 and Generalized anxiety disorder F41.1 [facility] [id number] [place] [address] 32052- 1271 Sep, [facility] [id number] [place] [address] 83593- 5174 Jul, Major depressive disorder, recurrent episode, mild with anxious distress F33.0 [facility] [address] [address]- 2310 Jun, Major depressive disorder, recurrent episode, mild with anxious distress F33.0 [facility] [id number] [place] [address] 16791- 5846 May, Major depressive disorder, recurrent episode, mild with anxious distress F33.0 [facility] [id number] [place] [address] 35187- 1422 May, Major depressive disorder, recurrent episode, mild with anxious distress F33.0 [facility] [address] [address]- 3332 May, Major depressive disorder, recurrent episode, mild with anxious distress F33.0 and Generalized anxiety disorder F41.1 [facility] [id number] [place] [address] 06594- 8362 Jan, [facility] [id number] [place] [address] 77390- 9818 Dec, Major depressive disorder, recurrent episode, mild with anxious distress F33.0 and Insomnia, unspecified type G47.00 [facility] [address] [address]- 1843 Sep, [facility] [id number] [place] [address] 98844- 3706 Sep, Major depressive disorder, recurrent episode, mild with anxious distress F33.0 [facility] [id number] [place] [address] 88649- 5468 August, [facility] [id number] [place] [address] 74635- 0364 August, Generalized anxiety disorder F41.1 [facility] [id number] [place] [address] 31853- 4620 Jul, [facility] [address] [address]- 2215 Jul, [facility] [id number] [place] [address] 24048- 6673 May, [facility] [address] [address]- 3975 Mar, [facility] [id number] [place] [address] 45996- 2046 Mar, [facility] [address] [address]- 4181 Mar, Major depressive disorder, single episode, unspecified F32.9 and Generalized anxiety disorder F41.1 [facility] [address], [place] [address]- 7187 Nov, Depressive disorder, not elsewhere classified 311 and Generalized anxiety disorder 300.02 [facility] [address] [address]- 2864 07 Nov, 2014 [facility] [id number] [address]- 6582 Oct, [facility] [id number] [place] [address] 31755- 0329 Sep, [facility] [id number] [place] [address] 57949- 3937 Sep, [facility] [id number] [place] [address] 23826- 4193 August, Depressive disorder, not elsewhere classified 311 and Generalized anxiety disorder 300.02 [facility] [id number] [address]- 5320 August, [facility] [address] [address]- 7646 Jul, [facility] [address] [address]- 9146 Jul, [facility] [address] [address]- 9338 Apr, [facility] [address], [place] [address]- 7948 Apr, [facility] [address], [place] [address]- 5754 Mar, [facility] [id number] [address]- 0050 Mar, [facility] [address], [place] [address]- 1502 Mar, [facility] [address], [place] [address]- 2421 15 Mar, 2014 [facility] [place] [facility] [address] [id number] [place] [address]75 15 Mar, 2014 [facility] [place] [facility] [address] [id number] [place] [address]- 4788 Mar, [facility] [place] [facility] [address] [id number] [place] [address]- 3695 Feb, [facility] [place] [facility] [address] [id number] [place] [address]- 7680 Feb, [facility] [place] [facility] [address] [id number] [place] [address]- 8411 Jan, [facility] [place] [facility] [address] [id number] [place] [address]- 7591 Jan, [facility] [place] [facility] [address] [id number] [place] [address]- 7200 Dec, [facility] [place] [facility] [address] [id number] [place] [address]- 8488 Dec, [facility] [place] [facility] [address] [id number] [place] [address]- 3963 Nov, [facility] [place] [facility] [address] [id number] [place] [address]- 5163 Nov, [facility] [place] [facility] [address] [id number] [place] [address]- 9963 Oct, [facility] [place] [facility] [address] [id number] [address]- 8095 Oct, [facility] [place] [facility] [address] [id number] [place] [address]- 5579 Oct, [facility] [place] [facility] [address] [id number] [place] [address]- 5891 Oct, [facility] [place] [facility] [address] [id number] [place] [address]- 9609 Sep, [facility] [place] [facility] [address] [id number] [place] [address]- 7021 Sep, [facility] [address] [id number] [place] [address]- 1038 August, [facility] [place] [facility] [address] [id number] [place] [address]- 5896 August, [facility] [address] [id number] [place] [address]- 0755 Jul, [facility] [place] [facility] [address] [id number] [place] [address]- 1071 Jul, [facility] [place] [facility] [address] [id number] [place] [address]- 3907 May, [facility] [place] [facility] [address] [id number] [place] [address]- 7779 May, [facility] [place] [facility] [address] [id number] [place] [address]- 9428 Apr, [facility] [address] [id number] [place] [address]- 1750 Apr, [facility] [place] [facility] [address] [id number] [place] [address]- 7590 Apr, [facility] [address] [id number] [place] [address]- 1821 Apr, [facility] [place] [facility] [address] [id number] [place] [address]- 4870 Apr, [facility] [place] [facility] [address] [id number] [place] [address]- 7936 Jan, [facility] [place] [facility] [address] [id number] [place] [address]- 7496 Jan, [facility] [place] [facility] [address] [id number] [place] [address]- 2546 Nov, [facility] [place] [facility] [address] [id number] [place] [address]- 1566 Oct, [facility] [address] [id number] [place] [address]- 9533 August, [facility] [place] [facility] [address] [id number] [place] [address]- 4858 Jul, [facility] [place] [facility] [address] [id number] [place] [address]- 6918 Jul, [facility] [place] [facility] [address] [id number] [place] [address]- 3958 Jul, [facility] [address] [id number] [place] [address]- 6877 Apr, [facility] [place] [facility] [address] [id number] [place] [address]- 4901 Apr, [facility] [place] [facility] [address] [id number] [place] [address]- 4479 Apr, [facility] [address] [id number] [place] [address]- 5586 Jan, [facility] [place] [facility] [address] [id number] [place] [address]- 9779 Jan, [facility] [place] [facility] [address] [id number] [address]- 2503 Dec, [facility] [place] [facility] [address] [id number] [place] [address]- 9104 Oct, [facility] [place] [facility] [address] [id number], [place] [address]- 0718 Jul, [facility] [place] [facility] [address] [id number] [place] [address]- 7466 Jul, [facility] [place] [facility] [address] [id number] [place] [address]- 0386 Jul, [facility] [place] [facility] [address] [id number] [place] [address]- 3250 Jun, [facility] [place] [facility] [address] [id number], [place] [address]- 0629 14 Mar, 2011 [facility] [id number], [place] [address]- 1475 14 Mar, 2011 [facility] [address], [place] [address]- 6560 14 Feb, 2011 [facility] [address] [address]- 1827 Feb, [facility] [address], [place] [address]- 0260 Mar, [facility] [id number] [place] [address] 006246- 0819 Feb, [facility] [id number] [place] [address] 33617- 7192 Feb, [facility] [address], [place] [address]- 4121 Feb, [facility] [address], [place] [address]- 3476 Jan, [facility] [address] [address]- 0280 Jan, IMMUNIZATIONS No Known Immunizations SOCIAL HISTORY Never Assessed REASON FOR VISIT Controlled Med Refill PLAN OF CARE VITAL SIGNS MEDICATIONS Medication Instructions Dosage Frequency Start Date End Date Duration Status Alprazolam 1 MG Orally daily- no early refills TAKE ONE TABLET BY MOUTH FOUR TIMES DAILY NEEDED 30 days Active Ambien 10 MG Orally Once a day 1 tablet at bedtime as needed 24h 30 days Active Celexa 20 mg Orally Once a day 1.5 tablet 24h 30 days Active RESULTS No Results [...] childbirth Hospitalization History ECT treatments x 20, [place] inpatient psychiatric about x 4 Hospitalization History stroke hospitalized for two nights 11/2016
--- OUTSIDE RECORDS SUMMARY | 2017-11-26 10:32 | XMS REPORT ---
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 Active 62628390 Problem Encounter for long-term (current) use of other medications V58.69 Active 399927828 Problem Major depressive disorder, recurrent episode, mild with anxious distress F33.0 Active 63383745 Problem Depressive disorder, not elsewhere classified 311 Active 85970328 ALLERGIES No Information ENCOUNTERS Encounter Location Date Diagnosis [place] [id number] [place] [address] 49071- 0663 Nov, [facility] [id number] [place] [address] 52116- 5911 August, Major depressive disorder, recurrent episode, mild with anxious distress F33.0 [place] [id number] [place] [address] 61479- 7892 August, Major depressive disorder, recurrent episode, mild with anxious distress F33.0 ; Generalized anxiety disorder F41.1 and 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 [facility] [id number] [place] [address] 65572- 7858 Jul, Major depressive disorder, recurrent episode, mild with anxious distress F33.0 [facility] [id number] [place] [address] 27531- 7288 Jul, Major depressive disorder, recurrent episode, mild with anxious distress F33.0 [place] [id number] [place] [address] 72305- 0088 Jun, Major depressive disorder, recurrent episode, mild with anxious distress F33.0 [facility] [id number] [place] [address] 24287- 7788 May, Major depressive disorder, recurrent episode, mild with anxious distress F33.0 [facility] [id number] [place] [address] 20276- 0110 May, Major depressive disorder, recurrent episode, mild with anxious distress F33.0 ; Generalized anxiety disorder F41.1 and 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 [facility] [id number] [place] [address] 81170- 6924 Apr, Major depressive disorder, recurrent episode, mild with anxious distress F33.0 [facility] [id number] [place] [address] 60281- 5001 Mar, Major depressive disorder, recurrent episode, mild with anxious distress F33.0 [facility] [id number] [place] [address] 19919- 1104 Feb, Major depressive disorder, recurrent episode, mild with anxious distress F33.0 [facility] [id number] [place] [address] 94390- 5600 Feb, Major depressive disorder, recurrent episode, mild with anxious distress F33.0 ; Generalized anxiety disorder F41.1 and 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 [facility] [id number] [place] [address] 41306- 5292 Jan, Major depressive disorder, recurrent episode, mild with anxious distress F33.0 [facility] [address] [address] 0271 Dec, Major depressive disorder, recurrent episode, mild with anxious distress F33.0 [facility] [id number] [place] [address] 32941- 8687 Nov, Major depressive disorder, recurrent episode, mild with anxious distress F33.0 [facility] [id number] [place] [address] 48579- 4949 Nov, [facility] [address] [address] 0617 Nov, Major depressive disorder, recurrent episode, mild with anxious distress F33.0 ; Generalized anxiety disorder F41.1 and 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 [facility] [address] [address] 5837 Oct, [facility] [id number] [place] [address] 37111- 2463 Oct, Major depressive disorder, recurrent episode, mild with anxious distress F33.0 ; Generalized anxiety disorder F41.1 and 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 [facility] [id number] [place] [address] 69926- 6021 Sep, Major depressive disorder, recurrent episode, mild with anxious distress F33.0 and Generalized anxiety disorder F41.1 [facility] [id number] [place] [address] 36555- 8555 Sep, [facility] [id number] [place] [address] 74550- 4735 Jul, Major depressive disorder, recurrent episode, mild with anxious distress F33.0 [facility] [address] [address]- 1157 Jun, Major depressive disorder, recurrent episode, mild with anxious distress F33.0 [facility] [address], [place] [address]- 3353 May, Major depressive disorder, recurrent episode, mild with anxious distress F33.0 [facility] [id number] [place] [address] 83726- 8641 16 May, 2016 Major depressive disorder, recurrent episode, mild with anxious distress F33.0 [facility] [id number] [address] 5253 May, Major depressive disorder, recurrent episode, mild with anxious distress F33.0 and Generalized anxiety disorder F41.1 [facility] [address], [place] [address]- 4605 Jan, [facility] [id number] [place] [address] 26268- 7638 Dec, Major depressive disorder, recurrent episode, mild with anxious distress F33.0 and Insomnia, unspecified type G47.00 [facility] [id number] [place] [address] 83431- 0827 Sep, [facility] [id number] [place] [address] 42548- 4753 Sep, Major depressive disorder, recurrent episode, mild with anxious distress F33.0 [facility] [id number] [place] [address] 00143- 6848 August, [facility] [id number] [place] [address] 67380- 4417 August, Generalized anxiety disorder F41.1 [facility] [id number] [place] [address] 51748- 6894 Jul, [facility] [id number] [place] [address] 76258- 8165 Jul, [facility] [id number] [place] [address] 88747- 3333 May, [facility] [id number] [place] [address] 16521- 4469 Mar, [facility] [id number] [place] [address] 85950- 8137 Mar, [facility] [id number] [place] [address] 02967- 9371 Mar, Major depressive disorder, single episode, unspecified F32.9 and Generalized anxiety disorder F41.1 [facility] [id number] [place] [address] 68355- 6038 Nov, Depressive disorder, not elsewhere classified 311 and Generalized anxiety disorder 300.02 [facility] [address] [facility] [id number] [address] 3772 07 Nov, 2014 [facility] [id number] [place] [address] 30429- 6794 Oct, [facility] [address] [address]- 1900 Sep, [facility] [id number] [place] [address] 25083- 0169 Sep, [facility] [id number] [place] [address] 83643- 3411 August, Depressive disorder, not elsewhere classified 311 and Generalized anxiety disorder 300.02 [facility] [address] [address]- 2946 August, [facility] [id number] [place] [address] 30053- 8690 14 Jul, 2014 [facility] [address], [place] [address]- 6487 Jul, [facility] [id number] [place] [address] 10078- 7967 Apr, [facility] [address], [place] [address]- 7639 Apr, [facility] [address], [place] [address]- 0585 15 Mar, 2014 [facility] [address], [place] [address]- 5228 15 Mar, 2014 [facility] [address] [address]- 0643 15 Mar, 2014 [facility] [address], [place] [address]- 2055 15 Mar, 2014 [facility] [address] [address]- 6775 15 Mar, 2014 [facility] [place] [facility] [address] [id number] [place] [address]- 3412 15 Mar, 2014 [facility] [place] [facility] [address] [id number] [place] [address]- 5744 Feb, [facility] [place] [facility] [address] [id number] [place] [address]- 6007 Feb, [facility] [place] [facility] [address] [id number] [place] [address]- 0002 Jan, [facility] [place] [facility] [address] [id number] [place] [address]- 6042 Jan, [facility] [place] [facility] [address] [id number] [place] [address]- 0923 Dec, [facility] [place] [facility] [address] [id number] [place] 6514 Dec, [facility] [place] [facility] [address] [id number] [place] [address]- 0030 Nov, [facility] [place] [facility] [address] [id number] [place] [address]- 2714 Nov, [facility] [place] [facility] [address] [id number] [place] [address]- 7415 Oct, [facility] [place] [facility] [address] [id number] [place] [address]- 5927 Oct, [facility] [place] [facility] [address] [id number] [place] [address]- 7590 Oct, [facility] [place] [facility] [address] [id number] [place] [address]- 1327 Oct, [facility] [place] [facility] [address] [id number] [place] [address]- 4988 Sep, [facility] [place] [facility] [address] [id number] [place] [address]- 8506 Sep, [facility] [place] [facility] [address] [id number] [place] [address]- 9596 August, [facility] [place] [facility] [address] [id number] [place] [address]- 7032 August, [facility] [place] [facility] [address] [id number] [place] [address]- 9318 Jul, [facility] [place] [facility] [address] [id number] [place] [address]- 6572 Jul, [facility] [place] [facility] [address] [id number] [place] [address]- 7156 May, [facility] [place] [facility] [address] [id number] [place] [address]- 4716 May, [facility] [place] [facility] [address] [id number] [place] [address]- 2610 Apr, [facility] [place] [facility] [address] [id number] [place] [address]- 6373 Apr, [facility] [place] [facility] [address] [id number] [place] [address]- 0712 Apr, [facility] [place] [facility] [address] [id number] [place] [address]- 8985 Apr, [facility] [place] [facility] [address] [id number] [place] [address]- 4280 Apr, [facility] [place] [facility] [address] [id number] [place] [address]- 5756 Jan, [facility] [place] [facility] [address] [id number] [place] [address]- 4874 Jan, [facility] [place] [facility] [address] [id number] [place] [address] 2546 Nov, [facility] [place] [facility] [address] [id number] [place] [address]- 9506 Oct, [facility] [place] [facility] [address] [id number] [place] [address]- 2546 August, [facility] [place] [facility] [address] [id number] [place] [address]- 3935 Jul, [facility] [address] [id number] [place] [address]- 1910 Jul, [facility] [place] [facility] [address] [id number] [place] [address]- 4926 Jul, [facility] [address] [id number] [place] [address]- 2055 Apr, [facility] [place] [facility] [address] [id number] [place] [address]- 4827 Apr, [facility] [address] [id number] [place] [address]- 3294 Apr, [facility] [address] [id number] [place] [address]- 2339 Jan, [facility] [address] [id number] [place] [address]- 2566 Jan, [facility] [address] [id number] [place] [address]- 7438 Dec, [facility] [address] [id number] [place] [address]- 4264 Oct, [facility] [address] [id number] [place] [address]- 9365 Jul, [facility] [address] [id number] [place] [address]- 6907 Jul, [facility] [address] [id number] [place] [address]- 4364 Jul, [facility] [place] [facility] [address] [id number] [place] [address]- 1148 Jun, [facility] [place] [facility] [address] [id number] [place] [address]- 0078 Mar, [facility] [address] [id number] [place] [address]- 9303 Mar, [facility] [id number] [address]- 2546 14 Feb, 2011 [facility] [id number] [address]- 2546 Feb, [facility] [id number] [address]- 5246 Mar, [facility] [address], [place] [address]- 2546 Feb, [facility] [address], [place] [address]- 1006 Feb, [facility] [address], [place] [address]- 2546 Feb, [facility] [address], [place] [address]- 2346 Jan, [facility] [address], [place] [address]- 0416 Jan, IMMUNIZATIONS No Known Immunizations SOCIAL HISTORY Never Assessed REASON FOR VISIT Controlled Refill Requets PLAN OF CARE VITAL SIGNS MEDICATIONS Medication Instructions Dosage Frequency Start Date End Date Duration Status Alprazolam 1 MG Orally daily- no early refills TAKE ONE TABLET BY MOUTH FOUR TIMES DAILY NEEDED 30 days Active Celexa 20 MG Orally Once a day 1.5 tablet 24h [...] childbirth Hospitalization History ECT treatments x 20, [facility] about x 4 Hospitalization History stroke hospitalized for two nights 11/2016
--- OUTSIDE RECORDS SUMMARY | 2017-11-26 10:32 | XMS REPORT ---
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 Active 00992678 Problem Encounter for long-term (current) use of other medications V58.69 Active 356707022 Problem Major depressive disorder, recurrent episode, mild with anxious distress F33.0 Active 26806078 Problem Depressive disorder, not elsewhere classified 311 Active 57438936 ALLERGIES Substance Reaction Event Type Date Status Tetracycline HCl hives Drug Allergy Feb, Active Reglan TD Drug Allergy Feb, Active ENCOUNTERS Encounter Location Date Diagnosis [place] [id number] [place] [address] 11245- 7804 Nov, [place] [address] [place] [id number] [place] [address] 40670- 7192 August, Major depressive disorder, recurrent episode, mild with anxious distress F33.0 [place] [address] [place] [id number] [place] [address] 83408- 7264 August, Major depressive disorder, recurrent episode, mild with anxious distress F33.0 ; Generalized anxiety disorder F41.1 and 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 [facility] [address] [place] [address] [id number] [place] [address] 90230- 3391 Jul, Major depressive disorder, recurrent episode, mild with anxious distress F33.0 [place] [address] [place] [id number] [place] [address] 79448- 2408 Jul, Major depressive disorder, recurrent episode, mild with anxious distress F33.0 [place] [address] [place] [id number] [address]64 Jun, Major depressive disorder, recurrent episode, mild with anxious distress F33.0 [facility] [id number] [place] [address] 72438- 2356 May, Major depressive disorder, recurrent episode, mild with anxious distress F33.0 [facility] [id number] [place] [address] 25249- 2017 May, Major depressive disorder, recurrent episode, mild with anxious distress F33.0 ; Generalized anxiety disorder F41.1 and 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 [facility] [id number] [place] [address] 17838- 1924 Apr, Major depressive disorder, recurrent episode, mild with anxious distress F33.0 [facility] [id number] [place] [address] 60430- 7268 Mar, Major depressive disorder, recurrent episode, mild with anxious distress F33.0 [facility] [id number] [place] [address] 53477- 8248 Feb, Major depressive disorder, recurrent episode, mild with anxious distress F33.0 [facility] [id number] [place] [address] 66873- 0896 Feb, Major depressive disorder, recurrent episode, mild with anxious distress F33.0 ; Generalized anxiety disorder F41.1 and 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 [facility] [id number] [place] [address] 11878- 0577 Jan, Major depressive disorder, recurrent episode, mild with anxious distress F33.0 [facility] [address] [address] [id number] [place] [address] 22807- 2380 Dec, Major depressive disorder, recurrent episode, mild with anxious distress F33.0 [facility] [address] [place] [id number] [place] [address] 83888- 9631 Nov, Major depressive disorder, recurrent episode, mild with anxious distress F33.0 [facility] [address] [place] [id number] [address] 6168 Nov, [facility] [address] [place] [id number] [place] [address] 31381- 6276 Nov, Major depressive disorder, recurrent episode, mild with anxious distress F33.0 ; Generalized anxiety disorder F41.1 and 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 [facility] [address] [place] [id number] [place] [address] 73003- 8196 Oct, [facility] [address] [place] [address] [id number] [place] [address] 74807- 0665 Oct, Major depressive disorder, recurrent episode, mild with anxious distress F33.0 ; Generalized anxiety disorder F41.1 and 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 [facility] [address] [place] [id number] [address] 5426 Sep, Major depressive disorder, recurrent episode, mild with anxious distress F33.0 and Generalized anxiety disorder F41.1 [facility] [address] [address] 1229 Sep, [facility] [address] [place] [id number] [address] 8944 Jul, Major depressive disorder, recurrent episode, mild with anxious distress F33.0 [facility] [address] [place] [id number] [address] 1166 Jun, Major depressive disorder, recurrent episode, mild with anxious distress F33.0 [facility] [address] [address] 6332 May, Major depressive disorder, recurrent episode, mild with anxious distress F33.0 [facility] [address] [place] [id number], [place] [address]- 3186 16 May, 2016 Major depressive disorder, recurrent episode, mild with anxious distress F33.0 [facility] [address] [id number] [address] 6748 May, Major depressive disorder, recurrent episode, mild with anxious distress F33.0 and Generalized anxiety disorder F41.1 [facility] [address] [place] [address] [id number] [place] [address] 42841- 6037 Jan, [facility] [address] [address] [id number] [place] [address] 70588- 5526 Dec, Major depressive disorder, recurrent episode, mild with anxious distress F33.0 and Insomnia, unspecified type G47.00 [facility] [address] [address] [id number] [place] [address] 56912- 3990 Sep, [facility] [address] [place] [id number] [place] [address] 62386- 8000 Sep, Major depressive disorder, recurrent episode, mild with anxious distress F33.0 [facility] [address] [place] [id number] [place] [address] 88578- 5916 August, [facility] [address] [place] [id number] [place] [address] 72434- 8300 August, Generalized anxiety disorder F41.1 [facility] [address] [place] [id number] [place] [address] 60889- 3124 Jul, [facility] [address] [place] [id number] [place] [address] 67096- 5543 Jul, [facility] [address] [place] [address] 22363- 6181 May, [facility] [address] [address] [id number] [place] [address] 39520- 5477 Mar, [facility] [id number] [place] [address] 90376- 9926 Mar, [facility] [address] [place] [id number] [place] [address] 17250- 1837 Mar, Major depressive disorder, single episode, unspecified F32.9 and Generalized anxiety disorder F41.1 [facility] [address] [address] [id number] [place] [address] 29605- 2546 Nov, Depressive disorder, not elsewhere classified 311 and Generalized anxiety disorder 300.02 [facility] [place] [address] [facility] [id number] [address]- 0331 Nov, [facility] [place] [address] [facility] [id number], [place] [address]- 2846 Oct, [facility] [address], [place] [address]- 8245 Sep, [facility] [place] [address] [facility] [id number] [address]- 9029 Sep, [facility] [place] [address] [place] [address] 96156- 7073 August, Depressive disorder, not elsewhere classified 311 and Generalized anxiety disorder 300.02 [facility] [address] [address]- 3387 August, [facility] [address] [place] [id number] [address]- 0074 Jul, [facility] [address], [place] [address]- 8578 Jul, [facility] [address], [place] [address]- 1537 Apr, [facility] [address] [address]- 6505 Apr, [facility] [address] [place] [id number] 0015 15 Mar, 2014 [facility] [place] [address] [id number] [address]- 5456 Mar, [facility] [place] [address] [id number] [address]- 4367 15 Mar, 2014 [facility] [place] [address] [id number] 0482 15 Mar, 2014 [facility] [place] [address] [place] [id number] [place] [address]- 3807 15 Mar, 2014 [facility] [place] [facility] [address] [id number] [place] [address]- 5881 Mar, [facility] [place] [facility] [address] [id number] [place] [address]- 9979 Feb, [facility] [place] [facility] [address] [id number] [place] 3437 Feb, [facility] [place] [facility] [address] [id number] [place] [address]- 2287 Jan, [facility] [place] [facility] [address] [id number] [place] [address]- 0245 Jan, [facility] [place] [facility] [address] [id number] [place] [address]- 2413 Dec, [facility] [place] [facility] [address] [id number] [place] [address]- 0151 Dec, [facility] [place] [facility] [address] [id number] [place] [address]- 4907 Nov, [facility] [place] [facility] [address] [id number] [place] [address]- 6325 Nov, [facility] [place] [facility] [address] [id number] [place] [address]- 8223 Oct, [facility] [place] [facility] [address] [id number] [place] [address]- 5874 Oct, [facility] [place] [facility] [address] [id number] [place] [address]- 0345 Oct, [facility] [place] [facility] [address] [id number] [place] [address]- 1385 Oct, [facility] [place] [facility] [address] [id number] [place] 2957 Sep, [facility] [place] [facility] [address] [id number] [place] [address]- 3254 Sep, [facility] [place] [facility] [address] [id number] [place] [address]- 0849 August, [facility] [place] [facility] [address] [id number] [place] [address]- 8320 August, [facility] [place] [facility] [address] [id number] [place] [address]- 3946 Jul, [facility] [place] [facility] [address] [id number] [place] [address]- 1761 Jul, [facility] [place] [facility] [address] [id number] [place] [address]- 5696 May, [facility] [place] [facility] [address] [id number] [place] 6170 May, [facility] [place] [facility] [address] [id number] [place] [address]- 0293 Apr, [facility] [place] [facility] [address] [id number] [place] [address]- 5636 Apr, [facility] [place] [facility] [address] [id number] [place] [address]- 0576 Apr, [facility] [place] [facility] [address] [id number] [place] [address]- 3149 Apr, [facility] [place] [facility] [address] [id number] [place] [address]- 0173 Apr, [facility] [place] [facility] [address] [id number], [place] [address]- 9852 Jan, [facility] [place] [facility] [address] [id number] [place] [address]- 1486 Jan, [facility] [place] [facility] [address] [id number] [place] [address]- 3326 Nov, [facility] [place] [facility] [address] [id number] [place] [address]- 9976 Oct, [facility] [place] [facility] [address] [id number], [place] [address]- 9168 August, [facility] [address] [id number] [place] [address]- 6193 Jul, [facility] [place] [facility] [address] [id number] [place] [address]- 9996 Jul, [facility] [place] [facility] [address] [id number] [place] [address]- 9348 Jul, [facility] [place] [facility] [address] [id number] [place] [address]- 9467 Apr, [facility] [address] [id number] [place] [address]- 8157 Apr, [facility] [place] [facility] [address] [id number] [place] [address]- 6535 Apr, [facility] [address] [id number] [place] [address]- 4501 Jan, [facility] [place] [facility] [address] [id number] [place] [address]- 2231 Jan, [facility] [address] [id number] [place] [address]- 3516 Dec, [facility] [place] [facility] [address] [id number] [place] [address]- 7206 Oct, [facility] [address] [id number] [place] [address]- 8835 Jul, [facility] [place] [facility] [address] [id number] [place] [address]- 0099 Jul, [facility] [place] [facility] [address] [id number] [place] [address]- 0325 Jul, [facility] [place] [facility] [address] [id number] [place] [address]- 8128 Jun, [facility] [place] [facility] [address] [id number] [place] [address]- 6649 Mar, [facility] [place] [facility] [address] [id number], [place] [address]- 1054 14 Mar, 2011 [facility] [address], [place] [address]- 8322 14 Feb, 2011 [facility] [address], [place] [address]- 6925 14 Feb, 2011 [facility] [address], [place] [address]- 4219 Mar, [facility] [address], [place] [address]- 4865 Feb, [facility] [address], [place] [address]- 6451 Feb, [facility] [address], [place] [address]- 8360 Feb, [facility] [address], [place] [address]- 9842 Jan, [facility] [address] [place] [id number], [place] [address]- 3863 Jan, IMMUNIZATIONS No Known Immunizations SOCIAL HISTORY Never Assessed REASON FOR VISIT f/u--Lissett Bustos MA PLAN OF CARE Activity Details Follow Up 3 Months Reason: f/u VITAL SIGNS Height 65.5 in 2017-03-02 Weight 203.4 lbs 2017-03-02 Heart Rate 70 bpm 2017-03-02 Respiratory Rate 20 2017-03-02 BMI 33.33 kg/m2 2017-03-02 Blood pressure systolic 118 mmHg 2017-03-02 Blood pressure diastolic 78 mmHg 2017-03-02 MEDICATIONS Medication Instructions Dosage Frequency Start Date End Date Duration Status Lovastatin 20 mg 1 Tablet by Oral route 1 time per day Apr, Active Benazepril-Hydrochlorothiazide 10-12.5 mg 1 Tablet by Oral route 1 time per day Apr, Active Celexa 20 MG 1.5 TABLET ONCE A DAY ORALLY 30 DAYS 30 Active Celexa 20 MG Orally Once a day 1.5 tablet 24h 30 days Active Reglan 10 mg 1 Tablet by Oral route 4 times per day Apr, Active Aspir-Low 81 MG Orally Once a day 1 tablet 24h Active Ambien 10 MG Orally Once a day 1 tablet at bedtime as needed 24h 30 days Active Alprazolam 1 MG Orally daily- no early refills TAKE ONE TABLET BY MOUTH FOUR TIMES DAILY NEEDED 30 days Active RESULTS No Results PROCEDURES Procedure Date Ordered Result Body Site [facility] VISIT ESTABLISHED PATIENT Mar 02, 2017 INSTRUCTIONS MEDICATIONS ADMINISTERED No Known Medications MEDICAL [...] childbirth Hospitalization History ECT treatments x 20, [place] inpatient psychiatric about x 4 Hospitalization History stroke hospitalized for two nights 11/2016
--- OUTSIDE RECORDS SUMMARY | 2017-11-26 10:33 | XMS REPORT ---
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
--- OUTSIDE RECORDS SUMMARY | 2017-11-26 10:33 | XMS REPORT ---
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 Active 14864240 Problem Encounter for long-term (current) use of other medications V58.69 Active 991468409 Problem Major depressive disorder, recurrent episode, mild with anxious distress F33.0 Active 22661878 Problem Depressive disorder, not elsewhere classified 311 Active 59940499 ALLERGIES No Information ENCOUNTERS Encounter Location Date Diagnosis [place] [id number] [place] [address] 46985- 5013 Nov, [place] [id number] [place] [address] 48667- 3920 Sep, Major depressive disorder, recurrent episode, mild with anxious distress F33.0 [place] [id number] [place] [address] 26973- 3326 August, Major depressive disorder, recurrent episode, mild with anxious distress F33.0 [place] [id number] [place] [address] 24172- 8675 August, Major depressive disorder, recurrent episode, mild with anxious distress F33.0 ; Generalized anxiety disorder F41.1 and 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 [facility] [id number] [place] [address] 30361- 3608 Jul, Major depressive disorder, recurrent episode, mild with anxious distress F33.0 [place] [id number] [place] [address] 12435- 3529 Jul, Major depressive disorder, recurrent episode, mild with anxious distress F33.0 [facility] [address] [address] Jun, Major depressive disorder, recurrent episode, mild with anxious distress F33.0 [facility] [id number] [place] [address] 22955- 1272 May, Major depressive disorder, recurrent episode, mild with anxious distress F33.0 [facility] [id number] [place] [address] 85140- 5377 May, Major depressive disorder, recurrent episode, mild with anxious distress F33.0 ; Generalized anxiety disorder F41.1 and 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 [facility] [id number] [place] [address] 78757- 4872 Apr, Major depressive disorder, recurrent episode, mild with anxious distress F33.0 [facility] [id number] [place] [address] 21532- 6883 Mar, Major depressive disorder, recurrent episode, mild with anxious distress F33.0 [facility] [id number] [place] [address] 52944- 0819 Feb, Major depressive disorder, recurrent episode, mild with anxious distress F33.0 [facility] [address] [place] [address] 98141- 6209 Feb, Major depressive disorder, recurrent episode, mild with anxious distress F33.0 ; Generalized anxiety disorder F41.1 and 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 [facility] [address] [address] 3067 Jan, Major depressive disorder, recurrent episode, mild with anxious distress F33.0 [facility] [id number] [place] [address] 84314- 6758 Dec, Major depressive disorder, recurrent episode, mild with anxious distress F33.0 [facility] [id number] [place] [address] 96475- 3929 Nov, Major depressive disorder, recurrent episode, mild with anxious distress F33.0 [facility] [id number] [address]- 9351 Nov, [facility] [id number] [place] [address] 44601- 9906 Nov, Major depressive disorder, recurrent episode, mild with anxious distress F33.0 ; Generalized anxiety disorder F41.1 and 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 [facility] [id number], [place] [address]- 0018 Oct, [facility] [id number] [place] [address] 53555- 7805 Oct, Major depressive disorder, recurrent episode, mild with anxious distress F33.0 ; Generalized anxiety disorder F41.1 and 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 [facility] [id number] [place] [address] 88037- 6450 Sep, Major depressive disorder, recurrent episode, mild with anxious distress F33.0 and Generalized anxiety disorder F41.1 [facility] [id number] [place] [address] 78304- 4709 Sep, [facility] [id number] [place] [address] 45959- 3150 Jul, Major depressive disorder, recurrent episode, mild with anxious distress F33.0 [facility] [address], [place] [address]- 1523 Jun, Major depressive disorder, recurrent episode, mild with anxious distress F33.0 [facility] [id number] [place] [address] 85612- 3628 May, Major depressive disorder, recurrent episode, mild with anxious distress F33.0 [facility] [id number] [place] [address] 65243- 5676 May, Major depressive disorder, recurrent episode, mild with anxious distress F33.0 [facility] [address], [place] [address]- 8745 May, Major depressive disorder, recurrent episode, mild with anxious distress F33.0 and Generalized anxiety disorder F41.1 [facility] [id number] [place] [address] 37737- 9688 Jan, [facility] [id number] [place] [address] 08185- 4925 Dec, Major depressive disorder, recurrent episode, mild with anxious distress F33.0 and Insomnia, unspecified type G47.00 [facility] [address], [place] [address]- 1606 Sep, [facility] [id number] [place] [address] 99386- 6923 Sep, Major depressive disorder, recurrent episode, mild with anxious distress F33.0 [facility] [id number] [place] [address] 12265- 1276 August, [facility] [id number] [place] [address] 06353- 1193 August, Generalized anxiety disorder F41.1 [facility] [id number] [place] [address] 24668- 6803 Jul, [facility] [address] [address]- 2777 Jul, [facility] [id number] [place] [address] 52846- 7747 May, [facility] [address], [place] [address]- 3685 Mar, [facility] [id number] [place] [address] 35000- 0310 Mar, [facility] [address] [address]- 0201 Mar, Major depressive disorder, single episode, unspecified F32.9 and Generalized anxiety disorder F41.1 [facility] [address], [place] [address]- 8162 Nov, Depressive disorder, not elsewhere classified 311 and Generalized anxiety disorder 300.02 [facility] [address], [place] [address]- 6563 07 Nov, 2014 [facility] [id number] [address]- 2477 Oct, [facility] [id number] [place] [address] 88619- 3584 Sep, [facility] [id number] [place] [address] 91180- 0822 Sep, [facility] [id number] [place] [address] 66190- 8722 August, Depressive disorder, not elsewhere classified 311 and Generalized anxiety disorder 300.02 [facility] [id number] [address]- 4348 August, [facility] [address], [place] [address]- 5202 Jul, [facility] [address], [place] [address]- 1476 Jul, [facility] [address] [address]- 2487 Apr, [facility] [address] [address]- 7922 Apr, [facility] [address], [place] [address]- 6543 Mar, [facility] [id number] [address]- 8943 Mar, [facility] [address], [place] [address]- 5100 Mar, [facility] [address] [address]- 0820 15 Mar, 2014 [facility] [place] [facility] [address] [id number] [place] [address]78 15 Mar, 2014 [facility] [place] [facility] [address] [id number] [place] [address]- 2849 Mar, [facility] [place] [facility] [address] [id number] [place] [address]- 7897 Feb, [facility] [place] [facility] [address] [id number] [place] [address]- 2117 Feb, [facility] [place] [facility] [address] [id number] [place] [address]- 5221 Jan, [facility] [place] [facility] [address] [id number] [place] [address]- 4989 Jan, [facility] [place] [facility] [address] [id number] [place] [address]- 3366 Dec, [facility] [place] [facility] [address] [id number] [place] [address]- 5005 Dec, [facility] [place] [facility] [address] [id number] [place] [address]- 1023 Nov, [facility] [place] [facility] [address] [id number] [place] [address]- 3169 Nov, [facility] [place] [facility] [address] [id number] [place] [address]- 1731 Oct, [facility] [place] [facility] [address] [id number], [place] [address]- 9612 Oct, [facility] [place] [facility] [address] [id number] [place] [address]- 9149 Oct, [facility] [place] [facility] [address] [id number] [place] [address]- 6438 Oct, [facility] [place] [facility] [address] [id number] [place] [address]- 5675 Sep, [facility] [place] [facility] [address] [id number] [place] [address]- 0429 Sep, [facility] [address] [id number] [place] [address]- 8080 August, [facility] [place] [facility] [address] [id number] [place] [address]- 1346 August, [facility] [address] [id number] [place] [address]- 9595 Jul, [facility] [place] [facility] [address] [id number] [place] [address]- 4405 Jul, [facility] [place] [facility] [address] [id number] [place] [address]- 6246 May, [facility] [place] [facility] [address] [id number] [place] [address]- 5179 May, [facility] [place] [facility] [address] [id number] [place] [address]- 9963 Apr, [facility] [address] [id number] [place] [address]- 9111 Apr, [facility] [place] [facility] [address] [id number] [place] [address]- 2705 Apr, [facility] [address] [id number] [place] [address]- 5103 Apr, [facility] [place] [facility] [address] [id number] [place] [address]- 6466 Apr, [facility] [place] [facility] [address] [id number] [place] [address]- 6636 Jan, [facility] [place] [facility] [address] [id number] [place] [address]- 0816 Jan, [facility] [place] [facility] [address] [id number] [place] [address]- 2546 Nov, [facility] [place] [facility] [address] [id number] [place] [address]- 5736 Oct, [facility] [address] [id number] [place] [address]- 3878 August, [facility] [place] [facility] [address] [id number] [place] [address]- 9511 Jul, [facility] [place] [facility] [address] [id number] [place] [address]- 6498 Jul, [facility] [place] [facility] [address] [id number] [place] [address]- 8200 Jul, [facility] [address] [id number] [place] [address]- 2896 Apr, [facility] [place] [facility] [address] [id number] [place] [address]- 8008 Apr, [facility] [place] [facility] [address] [id number] [place] [address]- 4368 Apr, [facility] [address] [id number] [place] [address]- 7733 Jan, [facility] [place] [facility] [address] [id number] [place] [address]- 5532 Jan, [facility] [place] [facility] [address] [id number], [place] [address]- 1687 Dec, [facility] [place] [facility] [address] [id number] [place] [address]- 7940 Oct, [facility] [place] [facility] [address] [id number], [place] [address]- 2399 Jul, [facility] [place] [facility] [address] [id number] [place] [address]- 4292 Jul, [facility] [place] [facility] [address] [id number] [place] [address]- 9456 Jul, [facility] [place] [facility] [address] [id number] [place] [address]- 8017 Jun, [facility] [place] [facility] [address] [id number] [address] 8136 14 Mar, 2011 [facility] [id number] [address]- 3562 14 Mar, 2011 [facility] [address] 6015 14 Feb, 2011 [facility] [address], [place] [address]- 1280 Feb, [facility] [address], [place] [address]- 1149 Mar, [facility] [id number] [place] [address] 382394- 1069 Feb, [facility] [id number] [place] [address] 847774- 0519 Feb, [facility] [address], [place] [address]- 4205 Feb, [facility] [address], [place] [address]- 7888 Jan, [facility] [address] 3802 Jan, IMMUNIZATIONS No Known Immunizations SOCIAL HISTORY Never Assessed REASON FOR VISIT Controlled Med Refill PLAN OF CARE VITAL SIGNS MEDICATIONS Medication Instructions Dosage Frequency Start Date End Date Duration Status Celexa 20 MG Orally Once a day [...] childbirth Hospitalization History ECT treatments x 20, [facility] about x 4 Hospitalization History stroke hospitalized for two nights 11/2016
--- OUTSIDE RECORDS SUMMARY | 2017-11-26 10:33 | XMS REPORT ---
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 Active 21208583 Problem Encounter for long-term (current) use of other medications V58.69 Active 614795771 Problem Major depressive disorder, recurrent episode, mild with anxious distress F33.0 Active 37652092 Problem Depressive disorder, not elsewhere classified 311 Active 11861605 ALLERGIES No Information SOCIAL HISTORY Never Assessed PLAN OF CARE VITAL SIGNS MEDICATIONS Medication Instructions Dosage Frequency Start Date End Date Duration Status Celexa 20 mg Orally Once a day 1 tablet 24h 30 days Active RESULTS No [...] childbirth Hospitalization History ECT treatments x 20, [facility] about x 4
--- OUTSIDE RECORDS SUMMARY | 2017-11-26 10:33 | XMS REPORT ---
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 Active 63248043 Problem Encounter for long-term (current) use of other medications V58.69 Active 476665618 Problem Major depressive disorder, recurrent episode, mild with anxious distress F33.0 Active 91193677 Problem Depressive disorder, not elsewhere classified 311 Active 31474888 ALLERGIES No Information ENCOUNTERS Encounter Location Date Diagnosis [place] [id number] [place] [address]96- [address]352 August, [place] [address] [place] [id number] [place] [address] 81510- 7531 Jun, Major depressive disorder, recurrent episode, mild with anxious distress F33.0 [place] [id number] [place] [address] 82668- 7723 May, Major depressive disorder, recurrent episode, mild with anxious distress F33.0 [place] [address] [place] [id number] [place] [address] 38675- 5368 May, Major depressive disorder, recurrent episode, mild with anxious distress F33.0 ; Generalized anxiety disorder F41.1 and 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 [facility] [id number] [place] [address] 35433- 5928 Apr, Major depressive disorder, recurrent episode, mild with anxious distress F33.0 [place] [address] [place] [id number] [place] [address] 07657- 4686 Mar, Major depressive disorder, recurrent episode, mild with anxious distress F33.0 [facility] [address] [facility] [id number] [address] Feb, Major depressive disorder, recurrent episode, mild with anxious distress F33.0 [facility] [address] [facility] [id number] [place] [address] 7[address] Feb, Major depressive disorder, recurrent episode, mild with anxious distress F33.0 ; Generalized anxiety disorder F41.1 and 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 [facility] [address] [facility] [id number] [place] [address] 1586 Jan, Major depressive disorder, recurrent episode, mild with anxious distress F33.0 [facility] [address] [facility] [id number] [place] [address] 9188 Dec, Major depressive disorder, recurrent episode, mild with anxious distress F33.0 [facility] [address] [facility] [id number] [place] [address] Nov, Major depressive disorder, recurrent episode, mild with anxious distress F33.0 [facility] [address] [facility] [id number] [place] [address] Nov, [facility] [place] [facility] [address] [facility] [id number] [place] [address] 4[address] Nov, Major depressive disorder, recurrent episode, mild with anxious distress F33.0 ; Generalized anxiety disorder F41.1 and 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 [facility] [place] [facility] [address] [facility] [id number] [place] [address]- 2426 Oct, [facility] [place] [facility] [address] [facility] [id number] [place] [address]- 5924 Oct, Major depressive disorder, recurrent episode, mild with anxious distress F33.0 ; Generalized anxiety disorder F41.1 and 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 [facility] [address] [facility] [id number] [place] [address] 3412 Sep, Major depressive disorder, recurrent episode, mild with anxious distress F33.0 and Generalized anxiety disorder F41.1 [facility] [id number] [place] [address] 81607- 8365 Sep, [facility] [address] [place] [id number] [place] [address] 28168- 9772 Jul, Major depressive disorder, recurrent episode, mild with anxious distress F33.0 [facility] [address] [place] [id number] [place] [address] 09964- 8063 Jun, Major depressive disorder, recurrent episode, mild with anxious distress F33.0 [facility] [address] [place] [id number] [place] [address] 74281- 7003 May, Major depressive disorder, recurrent episode, mild with anxious distress F33.0 [facility] [address] [place] [id number] [place] [address] 30443- 7346 May, Major depressive disorder, recurrent episode, mild with anxious distress F33.0 [facility] [address] [place] [address] 44710- 0313 May, Major depressive disorder, recurrent episode, mild with anxious distress F33.0 and Generalized anxiety disorder F41.1 [facility] [id number] [place] [address] 41592- 1919 Jan, [facility] [address] [place] [address] 07753- 9121 Dec, Major depressive disorder, recurrent episode, mild with anxious distress F33.0 and Insomnia, unspecified type G47.00 [facility] [address] [address]- 7151 Sep, [facility] [address] [place] [id number] [place] [address] 83052- 2760 Sep, Major depressive disorder, recurrent episode, mild with anxious distress F33.0 [facility] [address] [place] [address] 86437- 5693 August, [facility] [address] [address]- 8938 August, Generalized anxiety disorder F41.1 [facility] [address] [address]- 7102 Jul, [facility] [address] [address]- 0383 Jul, [facility] [address] [address]- 5927 May, [facility] [address] [address]- 3024 Mar, [facility] [address] [address]- 4016 Mar, [facility] [address] [address]- 5135 Mar, Major depressive disorder, single episode, unspecified F32.9 and Generalized anxiety disorder F41.1 [facility] [address] [address]- 9097 Nov, Depressive disorder, not elsewhere classified 311 and Generalized anxiety disorder 300.02 [facility] [address] [address]- 6917 Nov, [facility] [address] [address]- 3473 Oct, [facility] [address] [address]- 1886 Sep, [facility] [address] [place] [id number] [address]- 0940 Sep, [facility] [address] [address] August, Depressive disorder, not elsewhere classified 311 and Generalized anxiety disorder 300.02 [facility] [address] [address]- 0124 August, [facility] [address] [id number] [place] [address]- 6619 14 Jul, 2014 [facility] [place] [facility] [address] [id number] [place] [address]- 9665 Jul, [facility] [place] [facility] [address] [id number] [place] [address]- 6026 13 Apr, 2014 [facility] [place] [facility] [address] [id number] [place] [address]- 3235 Apr, [facility] [place] [facility] [address] [id number] [place] [address]- 6837 15 Mar, 2014 [facility] [place] [facility] [address] [id number] [place] [address]- 7643 15 Mar, 2014 [facility] [place] [facility] [address] [id number] [place] [address]- 2310 15 Mar, 2014 [facility] [place] [facility] [address] [id number] [place] [address]- 0196 15 Mar, 2014 [facility] [place] [facility] [address] [id number] [place] [address]- 8681 15 Mar, 2014 [facility] [place] [facility] [address] [id number] [place] [address]- 1348 15 Mar, 2014 [facility] [place] [facility] [address] [id number] [place] [address]- 9578 Feb, [facility] [place] [facility] [address] [id number] [place] [address]- 2320 Feb, [facility] [place] [facility] [address] [id number] [place] [address]- 3223 14 Jan, 2014 [facility] [place] [facility] [address] [id number] [place] [address]- 6922 14 Jan, 2014 [facility] [place] [facility] [address] [id number] [place] [address]- 2149 09 Dec, 2013 [facility] [place] [facility] [address] [id number] [place] [address]- 6608 Dec, [facility] [place] [facility] [address] [id number] [place] [address]- 4317 Nov, [facility] [place] [facility] [address] [id number] [place] [address]- 2461 Nov, [facility] [place] [facility] [address] [id number] [place] [address]- 3696 Oct, [facility] [place] [facility] [address] [id number] [place] [address]- 6014 Oct, [facility] [place] [facility] [address] [id number] [place] [address]- 8143 Oct, [facility] [place] [facility] [address] [id number] [place] [address]- 5025 Oct, [facility] [place] [facility] [address] [id number] [place] [address]- 1851 Sep, [facility] [place] [facility] [address] [id number] [place] [address]- 4130 Sep, [facility] [place] [facility] [address] [id number] [place] [address]- 6728 August, [facility] [place] [facility] [address] [id number] [place] [address]- 8048 August, [facility] [place] [facility] [address] [id number] [place] [address]- 2074 Jul, [facility] [place] [facility] [address] [id number] [place] [address]- 1017 Jul, [facility] [place] [facility] [address] [id number] [place] [address]- 0123 May, [facility] [place] [facility] [address] [id number] [place] [address]- 4885 May, [facility] [place] [facility] [address] [id number] [place] [address]- 6293 Apr, [facility] [place] [facility] [address] [id number] [place] [address]- 9461 17 Apr, 2013 [facility] [address] [id number] [place] [address]- 8143 Apr, [facility] [place] [facility] [address] [id number] [place] [address]- 4113 Apr, [facility] [address] [id number] [place] [address]- 4435 Apr, [facility] [place] [facility] [address] [id number] [place] [address]- 3829 Jan, [facility] [address] [id number] [place] [address]- 4353 Jan, [facility] [place] [facility] [address] [id number] [place] [address]- 9526 Nov, [facility] [place] [facility] [address] [id number] [place] [address]- 9285 Oct, [facility] [address] [id number] [place] [address]- 6645 August, [facility] [place] [facility] [address] [id number] [place] [address]- 9454 Jul, [facility] [place] [facility] [address] [id number] [place] [address]- 2580 Jul, [facility] [place] [facility] [address] [id number] [place] [address]- 3819 Jul, [facility] [place] [facility] [address] [id number] [place] [address]- 5185 Apr, [facility] [place] [facility] [address] [id number] [place] [address]- 5397 Apr, [facility] [place] [facility] [address] [id number] [place] [address]- 2766 Apr, [facility] [place] [facility] [address] [id number] [place] [address]- 3404 Jan, [facility] [place] [facility] [address] [id number] [place] [address]- 3423 23 Jan, 2012 [facility] [place] [facility] [address] [id number] [place] [address]- 3053 20 Dec, 2011 [facility] [place] [facility] [address] [id number] [place] [address]- 2297 05 Oct, 2011 [facility] [place] [facility] [address] [id number] [place] [address]- 6687 Jul, [facility] [place] [facility] [address] [id number] [place] [address]- 8714 24 Jul, 2011 [facility] [place] [facility] [address] [id number] [place] [address]- 7187 Jul, [facility] [place] [facility] [address] [id number] [place] [address]- 4916 Jun, [facility] [place] [facility] [address] [id number] [place] [address]- 9240 14 Mar, 2011 [facility] [place] [facility] [address] [id number] [place] [address]- 2938 14 Mar, 2011 [facility] [place] [facility] [address] [id number] [place] [address]- 2278 14 Feb, 2011 [facility] [place] [facility] [address] [id number] [address]- 3330 14 Feb, 2011 [facility] [place] [facility] [address] [id number] [place] [address]- 6500 28 Mar, 2010 [facility] [place] [facility] [address] [id number] [place] [address]- 8751 24 Feb, 2010 [facility] [place] [facility] [address] [id number] [place] [address]- 8910 10 Feb, 2010 [facility] [place] [facility] [address] [id number] [place] [address]- 8357 08 Feb, 2010 [facility] [place] [facility] [address] [facility] [id number] [place] [address]- 1872 Jan, [facility] [address] [facility] [id number] [place] [address]- 9416 Jan, IMMUNIZATIONS No Known Immunizations SOCIAL HISTORY Never Assessed REASON FOR VISIT return call PLAN OF CARE VITAL SIGNS MEDICATIONS Unknown [...] childbirth Hospitalization History ECT treatments x 20, [facility] about x 4 Hospitalization History stroke hospitalized for two nights 11/2016
--- OUTSIDE RECORDS SUMMARY | 2017-11-26 10:35 | XMS REPORT | Continuity of Care Document ---
Author Author [facility] Organization [facility] Address Unknown Phone Unavailable Allergies Active Description Code Type Severity Reaction Onset Reported/Identified Relationship to Patient Clinical Status Yes TETRACYCLINE [id number] DRUG N/A N/A Yes tetracycline Drug Allergy 03/03/2011 Yes tetracycline Drug Allergy N/ A N/A 03/03/2011 Yes tetracycline [id number] Drug Allergy Mild N/A 11/05/2016 Medications There is no data. Problems Date Dx Coded Attending Type Code Diagnosis Diagnosed By 02/07/2010 MARIS LESLIE APRN 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 02/07/2010 MARIS LESLIE APRN 300.02 AN GEN ANXIETY 02/07/2010 MARIS LESLIE APRN 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 02/07/2010 MARIS LESLIE APRN 300.02 AN GEN ANXIETY 02/07/2010 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 02/07/2010 300.02 AN GEN ANXIETY 02/07/2010 MARIS LESLIE APRN 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 02/07/2010 MARIS LESLIE APRN 300.02 AN GEN ANXIETY 02/07/2010 MARIS LELSIE APRN 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 02/07/2010 MARIS LESLIE APRN 300.02 AN GEN ANXIETY 02/07/2010 MARIS LESLIE APRN 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 02/07/2010 MARIS LESLIE APRN 300.02 AN GEN ANXIETY 02/07/2010 TAYLOR MARY DE LA VEGAETTE 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 02/07/2010 TAYLOR MARY DE LA [place] 300.02 AN GEN ANXIETY 02/07/2010 TAYLOR YOLETTE JOHN 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 02/07/2010 TAYLOR YOLETTE JOHN 300.02 AN GEN ANXIETY 03/13/2010 MARIS LESLIE APRN 300.00 AN ANXIETY UNSPEC 03/13/2010 MARIS LESLIE APRN 300.00 AN ANXIETY UNSPEC 03/13/2010 300.00 AN ANXIETY UNSPEC 03/13/2010 MARIS LESLIE APRN 300.00 AN ANXIETY UNSPEC 03/13/2010 MARIS LESLIE APRN 300.00 AN ANXIETY UNSPEC 03/13/2010 MARIS LESLIE APRN 300.00 AN ANXIETY UNSPEC 03/13/2010 TAYLOR MARY DE [place] 300.00 AN ANXIETY UNSPEC 03/13/2010 TAYLOR YOLETTEJOHN 300.00 AN ANXIETY UNSPEC 08/16/2010 Ot 455.0 INT HEMORRHOID W/O COMPL 08/16/2010 Ot 455.3 EXT HEMORRHOID W/O COMPL 08/16/2010 Ot 787.91 DIARRHEA 08/16/2010 Ot 787.99 OTHER GI SYSTEM SYMPTOMS 07/31/2011 Ot 780.2 SYNCOPE AND COLLAPSE 08/12/2012 MARIS LESLIE APRN V58.69 MEDICATION HIGH RISK 08/12/2012 V58.69 MEDICATION HIGH RISK 08/12/2012 MARIS LESLIE APRN V58.69 MEDICATION HIGH RISK 08/12/2012 MARIS LESLIE APRN V58.69 MEDICATION HIGH RISK 08/12/2012 MARIS LESLIE APRN V58.69 MEDICATION HIGH RISK 08/12/2012 TAYLOR BUILDING SERVICES SUPERVISOR, JOHN V58.69 MEDICATION HIGH RISK 08/12/2012 TAYLOR YOLETTE JOHN V58.69 MEDICATION HIGH RISK 12/27/2012 HANSEL DPM, CALLY Q Ot 228.01 HEMANGIOMA SKIN 12/27/2012 HANSEL DPM, CALLY Q Ot 401.9 HYPERTENSION NOS 12/27/2012 HANSEL DPM, CALLY Q Ot V49.81 ASYMPT POSTMENOPAUSAL STATUS (AGE-RELATE 05/10/2013 DANAE NAVARRO FACC, CARLOS FACP CCDS Ot 272.4 HYPERLIPIDEMIA NEC/NOS 05/10/2013 DANAE NAVARRO FACC, CARLOS FACP CCDS Ot 278.00 OBESITY, NOS 05/10/2013 DANAE NAVARRO FACC, CARLOS FACP CCDS Ot 401.9 HYPERTENSION NOS 05/10/2013 DANAE NAVARRO FACC, CARLOS FACP CCDS Ot 786.50 CHEST PAIN NOS 05/10/2013 DANAE NAVARRO FACC, CARLOS FACP CCDS Ot 794.31 ABNORM ELECTROCARDIOGRAM 05/10/2013 DANAE NAVARRO FACC, CARLOS FACP CCDS Ot V17.3 FAM HX-ISCHEM HEART DIS 05/10/2013 DANAE NAVARRO FACC, CARLOS FACP CCDS Ot V58.69 OTH MED,LT,CURRENT USE 05/10/2013 DANAE NAVARRO FACC, CARLOS FACP CCDS Ot V85.36 BODY MASS INDEX 36.0-36.9, ADULT 06/27/2013 BRANDY LANGE MD Ot 780.79 OTH MALAISE FATIGUE 06/27/2013 BRANDY LANGE MD Ot 785.1 PALPITATIONS 06/27/2013 BRANDY LANGE MD Ot 786.09 RESPIRATORY ABNORM NEC 05/02/2014 JOHN VAZQUEZ APRN 311 DEPRESSIVE DISORDER NOS 05/02/2014 JOHN VAZQUEZ APRN 311 DEPRESSIVE DISORDER NOS 08/14/2014 Ot V76.12 12/20/2015 Ot 433.10 12/20/2015 Ot 780.2 01/03/2016 Ot 780.2 SYNCOPE AND COLLAPSE 01/03/2016 Ot V76.12 OT SCREEN MAMMO-MALIGN NEOPLASM OF IDRIS 01/03/2016 FREDA NAVARRO, JONATHAN Beckham Ot 722.52 LUMB/LUMBOSAC DISC DEGEN 01/03/2016 HANSEL DPM, CALLY Q Ot 782.2 LOCAL SUPRFICIAL SWELLNG 01/03/2016 HANSEL DPM, CALLY Q Ot V72.84 EXAM PRE-OPERATIVE NOS 01/03/2016 HANSEL DPM, CALLY Q Ot V74.8 SCREEN-BACTERIAL DIS NEC 01/03/2016 DANAE NAVARRO FACC, CARLOS FACP CCDS Ot 401.9 HYPERTENSION NOS 01/03/2016 DANAE NAVARRO FACC, CARLOS FACP CCDS Ot 424.1 AORTIC VALVE DISORDER 01/03/2016 DANAE NAVARRO FACC, CARLOS FACP CCDS Ot 786.09 RESPIRATORY ABNORM NEC 01/03/2016 DANAE NAVARRO FACC, CARLOS FACP CCDS Ot 786.50 CHEST PAIN NOS 01/03/2016 DANAE NAVARRO FACC, CARLOS FACP CCDS Ot 794.31 ABNORM ELECTROCARDIOGRAM 01/03/2016 Ot 780.79 OTH MALAISE FATIGUE 01/03/2016 Ot 785.1 PALPITATIONS 01/03/2016 Ot 786.09 RESPIRATORY ABNORM NEC 01/03/2016 Ot V76.12 OTH SCREEN MAMMO-MALIGN NEOPLASM OF IDRIS 01/03/2016 JOSTIN ANU Head BUILDING SERVICES SUPERVISOR Ot R51 HEADACHE 01/04/2016 ANU FRANKEL BUILDING SERVICES SUPERVISOR Ot R51 HEADACHE 01/25/2016 ANU FRANKEL BUILDING SERVICES SUPERVISOR Ot R51 HEADACHE 01/30/2016 ANU FRANKEL BUILDING SERVICES SUPERVISOR Ot R51 HEADACHE 02/08/2016 Ot 780.2 SYNCOPE AND COLLAPSE 02/08/2016 Ot V76.12 OTH SCREEN MAMMO-MALIGN NEOPLASM OF IDRIS 02/08/2016 FREDA NAVARRO, JONATHAN Beckham Ot 722.52 LUMB/LUMBOSAC DISC DEGEN 02/08/2016 HANSEL DPM, CALLY Q Ot 782.2 LOCAL SUPRFICIAL SWELLNG 02/08/2016 HANSEL DPM, CALLY Q Ot V72.84 EXAM PRE-OPERATIVE NOS 02/08/2016 HANSEL DPM, CALLY Q Ot V74.8 SCREEN-BACTERIAL DIS NEC 02/08/2016 DANAE NAVARRO FACC, ALI FACP CCDS Ot 401.9 HYPERTENSION NOS 02/08/2016 DANAE NAVARRO FACC, ALI FACP CCDS Ot 424.1 AORTIC VALVE DISORDER 02/08/2016 DANAE NAVARRO FACC, ALI FACP CCDS Ot 786.09 RESPIRATORY ABNORM NEC 02/08/2016 DANAE NAVARRO FACC, ALI FACP CCDS Ot 786.50 CHEST PAIN NOS 02/08/2016 DANAE NAVARRO FACC, ALI FACP CCDS Ot 794.31 ABNORM ELECTROCARDIOGRAM 02/08/2016 Ot 780.79 OTH MALAISE FATIGUE 02/08/2016 Ot 785.1 PALPITATIONS 02/08/2016 Ot 786.09 RESPIRATORY ABNORM NEC 02/08/2016 Ot V76.12 OTH SCREEN MAMMO-MALIGN NEOPLASM OF IDRIS 02/08/2016 ANU FRANKEL BUILDING SERVICES SUPERVISOR Ot R51 HEADACHE 02/08/2016 JOSUE NAVARRO, IRA Guajardo Ot M47.816 SPONDYLOSIS W/O MYELOPATHY OR RADICULOPA 03/03/2016 IRA SALAS MD Ot M47.816 SPONDYLOSIS W/O MYELOPATHY OR RADICULOPA 03/05/2016 IRA SALAS MD Ot M47.816 SPONDYLOSIS W/O MYELOPATHY OR RADICULOPA 07/21/2016 MARTHA FORRESTER MD Ot N32.81 OVERACTIVE BLADDER 07/21/2016 MARTHA FORRESTER MD Ot N36.42 INTRINSIC SPHINCTER DEFICIENCY (ISD) 07/21/2016 MARTHA FORRESTER MD, Ot R32 UNSPECIFIED URINARY INCONTINENCE 07/21/2016 MARTHA FORRESTER MD, Ot Z01.818 ENCOUNTER FOR OTHER PREPROCEDURAL EXAMIN 07/21/2016 MARTHA FORRESTER MD, Ot Z11.2 ENCOUNTER FOR SCREENING FOR OTHER BACTER 07/30/2016 MARTHA FORRESTER MD Ot N32.81 OVERACTIVE BLADDER 07/30/2016 MARTHA FORRESTER MD, Ot N36.42 INTRINSIC SPHINCTER DEFICIENCY (ISD) 07/30/2016 MARTHA FORRESTER MD, Ot R32 UNSPECIFIED URINARY INCONTINENCE 08/05/2016 MARTHA FORRESTER MD, Ot N32.81 OVERACTIVE BLADDER 08/05/2016 MARTHA FORRESTER MD, Ot N36.42 INTRINSIC SPHINCTER DEFICIENCY (ISD) 08/05/2016 MARTHA FORRESTER MD, Ot R32 UNSPECIFIED URINARY INCONTINENCE 11/05/2016 Ot 780.2 SYNCOPE AND COLLAPSE 11/05/2016 Ot 780.79 OTH MALAISE FATIGUE 11/05/2016 Ot 785.1 PALPITATIONS 11/05/2016 Ot 786.09 RESPIRATORY ABNORM NEC 11/05/2016 WAYNE AVILA MD Ot R19.4 CHANGE IN BOWEL HABIT 11/05/2016 WAYNE AVILA MD, Ot R63.4 ABNORMAL WEIGHT LOSS 11/05/2016 WAYNE AVILA MD, Ot Z01.818 ENCOUNTER FOR OTHER PREPROCEDURAL EXAMIN 11/07/2016 WAYNE AVILA MD Ot E78.5 HYPERLIPIDEMIA, UNSPECIFIED 11/07/2016 WAYNE AVILA MD, Ot F32.9 MAJOR DEPRESSIVE DISORDER, SINGLE EPISOD 11/07/2016 WAYNE AVILA MD Ot I10 ESSENTIAL (PRIMARY) HYPERTENSION 11/07/2016 WAYNE AVILA MD, Ot I25.10 ATHSCL HEART DISEASE OF [place] CORONARY 11/07/2016 WAYNE AVILA MD, Ot I85.00 ESOPHAGEAL VARICES WITHOUT BLEEDING 11/07/2016 WAYNE AVILA MD, Ot K21.0 GASTRO-ESOPHAGEAL REFLUX DISEASE WITH ES 11/07/2016 KIDO MD, TAKAAKI Ot K29.70 GASTRITIS, UNSPECIFIED, WITHOUT BLEEDING 11/07/2016 WAYNE AVILA MD Ot K31.7 POLYP OF STOMACH AND DUODENUM 11/07/2016 WAYNE AVILA MD, Ot K57.30 DVRTCLOS OF LG INT W/O PERFORATION OR AB 11/07/2016 WAYNE AVILA MD Ot K63.2 FISTULA OF INTESTINE 11/07/2016 WAYNE AVILA MD Ot K64.1 SECOND DEGREE HEMORRHOIDS 11/07/2016 WAYNE AVILA MD Ot K91.850 POUCHITIS 11/07/2016 WAYNE AVILA MD, Ot Z79.899 OTHER MANAGER BILLING (CURRENT) DRUG THERAPY 11/11/2016 WAYNE AVILA MD, Ot E78.5 HYPERLIPIDEMIA, UNSPECIFIED 11/11/2016 WAYNE AVILA MD Ot F32.9 MAJOR DEPRESSIVE DISORDER, SINGLE EPISOD 11/11/2016 WAYNE AVILA MD Ot I10 ESSENTIAL (PRIMARY) HYPERTENSION 11/11/2016 WAYNE AVILA MD, Ot I25.10 ATHSCL HEART DISEASE OF [place] CORONARY 11/11/2016 WAYNE AVILA MD Ot I85.00 ESOPHAGEAL VARICES WITHOUT BLEEDING 11/11/2016 WAYNE AVILA MD, Ot K21.0 GASTRO-ESOPHAGEAL REFLUX DISEASE WITH ES 11/11/2016 WAYNE AVILA MD, Ot K29.70 GASTRITIS, UNSPECIFIED, WITHOUT BLEEDING 11/11/2016 WAYNE AVILA MD Ot K31.7 POLYP OF STOMACH AND DUODENUM 11/11/2016 WAYNE AVILA MD, Ot K57.30 DVRTCLOS OF LG INT W/O PERFORATION OR AB 11/11/2016 WAYNE AVILA MD Ot K63.2 FISTULA OF INTESTINE 11/11/2016 WAYNE AVILA MD Ot K64.1 SECOND DEGREE HEMORRHOIDS 11/11/2016 WAYNE AVILA MD Ot K91.850 POUCHITIS 11/11/2016 WAYNE AVILA MD Ot Z79.899 OTHER MANAGER BILLING (CURRENT) DRUG THERAPY 12/16/2016 WAYNE AVILA MD Ot K21.9 GASTRO-ESOPHAGEAL REFLUX DISEASE WITHOUT 12/16/2016 WAYNE AVILA MD Ot R19.7 DIARRHEA, UNSPECIFIED 12/16/2016 WAYNE AVILA MD Ot R63.4 ABNORMAL WEIGHT LOSS 12/16/2016 WYANE AVILA MD Ot Z98.0 INTESTINAL BYPASS AND ANASTOMOSIS STATUS 12/23/2016 WAYNE AVILA MD Ot K21.9 GASTRO-ESOPHAGEAL REFLUX DISEASE WITHOUT 12/23/2016 WAYNE AVILA MD Ot R19.7 DIARRHEA, UNSPECIFIED 12/23/2016 WAYNE AVILA MD Ot R63.4 ABNORMAL WEIGHT LOSS 12/23/2016 WAYNE AVILA MD Ot Z98.0 INTESTINAL BYPASS AND ANASTOMOSIS STATUS 02/09/2017 BRANDY LANGE MD, Ot Z12.31 ENCNTR SCREEN MAMMOGRAM FOR MALIGNANT NE 02/12/2017 BRANDY LANGE MD Ot Z12.31 ENCNTR SCREEN MAMMOGRAM FOR MALIGNANT NE 03/06/2017 BRANDY LANGE MD Ot N64.4 MASTODYNIA 03/06/2017 BRANDY LANGE MD, Ot Z12.31 ENCNTR SCREEN MAMMOGRAM FOR MALIGNANT NE 03/16/2017 BRANDY LANGE MD Ot N64.4 MASTODYNIA 03/16/2017 BRANDY LANGE MD Ot Z12.31 ENCNTR SCREEN MAMMOGRAM FOR MALIGNANT NE 03/24/2017 ANU FRANKEL BUILDING SERVICES SUPERVISOR Ot J98.01 ACUTE BRONCHOSPASM 03/24/2017 ANU FRANKEL BUILDING SERVICES SUPERVISOR Ot R06.02 SHORTNESS OF BREATH 04/02/2017 ANU FRANKEL BUILDING SERVICES SUPERVISOR Ot J98.01 ACUTE BRONCHOSPASM 04/02/2017 NAU FRANKEL BUILDING SERVICES SUPERVISOR Ot R06.02 SHORTNESS OF BREATH 10/06/2017 FREDA NAVARRO, JONATHAN Beckham Ot 722.52 LUMB/LUMBOSAC DISC DEGEN 10/06/2017 HANSEL DPM, CALLY Q Ot 782.2 LOCAL SUPRFICIAL SWELLNG 10/06/2017 HANSEL DPM, CALLY Q Ot V72.84 EXAM PRE-OPERATIVE NOS 10/06/2017 HANSEL DPM, CALLY Q Ot V74.8 SCREEN-BACTERIAL DIS NEC 10/06/2017 DANAE NAVARRO FACC, CARLOS SMITHP CCDS Ot 401.9 HYPERTENSION NOS 10/06/2017 DANAE NAVARRO FACC, CARLOS SMITHP CCDS Ot 424.1 AORTIC VALVE DISORDER 10/06/2017 DANAE NAVARRO FACC, CARLOS REYEZ CCDS Ot 786.09 RESPIRATORY ABNORM NEC 10/06/2017 DANAE MD FACC, ALI FACP CCDS Ot 786.50 CHEST PAIN NOS 10/06/2017 DANAE NAVARRO FACC, ALI FACP CCDS Ot 794.31 ABNORM ELECTROCARDIOGRAM 10/06/2017 Ot 780.79 OTH MALAISE FATIGUE 10/06/2017 Ot 785.1 PALPITATIONS 10/06/2017 Ot 786.09 RESPIRATORY ABNORM NEC 10/06/2017 Ot V76.12 OTH SCREEN MAMMO-MALIGN NEOPLASM OF IDRIS 10/06/2017 ANU FRANKEL BUILDING SERVICES SUPERVISOR Ot R51 HEADACHE 10/06/2017 WAYNE AVILA MD Ot K21.9 GASTRO-ESOPHAGEAL REFLUX DISEASE WITHOUT 10/06/2017 WAYNE AVILA MD Ot R19.7 DIARRHEA, UNSPECIFIED 10/06/2017 WAYNE AVILA MD Ot R63.4 ABNORMAL WEIGHT LOSS 10/06/2017 WAYNE AVILA MD Ot Z98.0 INTESTINAL BYPASS AND ANASTOMOSIS STATUS 10/06/2017 BRANDY LANGE MD Ot N64.4 MASTODYNIA 10/06/2017 BRANDY LANGE MD Ot Z12.31 ENCNTR SCREEN MAMMOGRAM FOR MALIGNANT NE 10/06/2017 ANU FRANKEL BUILDING SERVICES SUPERVISOR Ot J98.01 ACUTE BRONCHOSPASM 10/06/2017 ANU FRANKEL BUILDING SERVICES SUPERVISOR Ot R06.02 SHORTNESS OF BREATH 10/09/2017 VARSHA TONEY MD Ot K43.9 VENTRAL HERNIA WITHOUT OBSTRUCTION OR GA 10/09/2017 VARSHA TONEY MD Ot K57.30 DVRTCLOS OF LG INT W/O PERFORATION OR AB 10/29/2017 VARSHA TONEY MD, Ot K43.9 VENTRAL HERNIA WITHOUT OBSTRUCTION OR GA 10/29/2017 VARSHA TONEY MD Ot K57.30 DVRTCLOS OF LG INT W/O PERFORATION OR AB 11/04/2017 VARSHA TONEY MD, Ot K43.9 VENTRAL HERNIA WITHOUT OBSTRUCTION OR GA 11/04/2017 VARSHA TONEY MD Ot K57.30 DVRTCLOS OF LG INT W/O PERFORATION OR AB Procedures Code Description [place] [id number] EKG, TRACING (IN-HOUSE) 08/18/2012 Results Test Result Range Methicillin resistant Staphylococcus aureus (MRSA) screening culture - 15:00 Methicillin resistant Staphylococcus aureus (MRSA) screening culture NEG NRG [id number] - 10/08/17 12:18 Serum or plasma urea nitrogen measurement (mass/volume) 16 mg/dL 7-18 Serum or plasma creatinine measurement (mass/volume) 0.70 mg/dL 0.60-1.30 Serum or plasma urea nitrogen/creatinine mass ratio 23 NRG Serum or plasma creatinine measurement with calculation of estimated glomerular filtration rate > NRG Encounters ACCT No. Visit Date/Time Discharge Status Pt. Type Provider Facility Loc./Unit Complaint [id number] 09/30/2017 14:18:45 09/30/2017 23:59:59 CLS Outpatient Ricky Donato [id number] 09/24/2017 13:54:13 09/24/2017 23:59:59 CLS Outpatient Ricky Donato [id number] 08/23/2017 14:25:47 08/23/2017 23:59:59 CLS Outpatient Dave Siddiqui [id number] 08/14/2017 18:00:50 08/14/2017 23:59:59 CLS Outpatient [place] her[facility] Flori [id number] 08/03/2017 18:05:16 08/03/2017 23:59:59 CLS Outpatient Kamlesh Doss [id number] 06/11/2017 18:05:29 06/11/2017 23:59:59 CLS Outpatient Zarina Tafoya [id number] 05/25/2017 18:12:58 05/25/2017 23:59:59 CLS Outpatient Kamlesh Doss [id number] 02/15/2017 14:07:34 02/15/2017 23:59:59 CLS Outpatient Zarina Tafoya Flori [id number] 02/13/2017 11:48:13 02/13/2017 23:59:59 CLS Outpatient Travis Geronimo [id number] 03/26/2015 18:11:34 03/26/2015 23:59:59 CLS Outpatient Tammy, V S [id number] 03/02/2015 11:45:05 03/02/2015 23:59:59 CLS Outpatient Tammy, V S [id number] 08/31/2017 11:40:00 08/31/2017 23:59:59 CLS Outpatient DELMAR NICK [facility] [id number] 09/24/2017 14:55:16 Document Registration [id number] 08/14/2017 19:12:16 Document Registration [id number] 08/14/2017 17:46:26 Document Registration [id number] 06/11/2017 18:31:49 Document Registration [id number] 12/18/2016 10:26:15 Document Registration [id number] 12/09/2016 22:30:57 Document Registration [id number] 12/09/2016 21:35:39 Document Registration [id number] 05/02/2014 11:52:00 05/02/2014 23:59:59 CLS Outpatient TAYLOR BUILDING SERVICES SUPERVISORJOHN [id number] 05/02/2014 11:52:00 05/02/2014 23:59:59 CLS Outpatient TAYLOR BUILDING SERVICES SUPERVISORJOHN [id number] 09/20/2013 14:41:00 09/20/2013 23:59:59 CLS Outpatient LESLIE BUILDING SERVICES SUPERVISORMARIS [id number] 05/02/2013 16:47:00 05/02/2013 23:59:59 CLS Outpatient LESLIE BUILDING SERVICES SUPERVISORMARIS Simmons [id number] 11/19/2012 12:45:00 11/19/2012 23:59:59 CLS Outpatient LESLIE BUILDING SERVICES SUPERVISORMARIS [id number] 07/21/2012 12:44:00 07/21/2012 23:59:59 CLS Outpatient LESLIE BUILDING SERVICES SUPERVISORMARIS [id number] 04/22/2012 12:46:00 04/22/2012 23:59:59 CLS Outpatient LESLIE BUILDING SERVICES SUPERVISORMARIS Simmons [id number] 08/18/2012 10:20:00 Document Registration [id number] 03/29/2013 13:20:30 ACT Document Registration [id number] 10/08/2017 11:37:00 10/08/2017 23:59:59 CLS Outpatient VARSHA TONEY MD [facility] RAD DIFFUSE,ABD PAIN, WT LOSS [id number] 03/04/2017 11:49:00 03/04/2017 23:59:59 CLS Outpatient ANU FRANKEL BUILDING SERVICES SUPERVISOR [facility] RAD SOB [id number] 02/12/2017 12:58:00 02/12/2017 23:59:59 CLS Outpatient BRANDY LANGE MD [facility] RAD SCREENING [id number] 11/18/2016 08:30:00 11/18/2016 23:59:59 CLS Outpatient WAYNE AVILA MD [facility] RAD DIARRHEA,GERD,WT LOSS [id number] 11/07/2016 12:17:00 11/07/2016 14:30:00 DIS Outpatient WAYNE AVILA MD [facility] ENDO CHANGE IN BOWEL HABITS, WT LOSE AND ABDOMINAL PAIN [id number] 11/05/2016 05:40:00 11/05/2016 14:35:00 DIS Outpatient WAYNE AVILA MD [facility] PREOP CHANGE IN BOWEL HABITS , WEIGHT LOSS AND ABD PAIN [id number] 07/30/2016 06:25:00 07/30/2016 09:57:00 DIS Outpatient MARTHA FORRESTER MD [facility] SDC MACROPLASTIQUE [id number] 07/21/2016 14:47:00 07/21/2016 15:02:00 DIS Outpatient MARTHA FORRESTER MD [facility] PREOP MACROPLASTIQUE [id number] 02/08/2016 07:24:00 02/08/2016 08:34:00 DIS Outpatient IRA SALAS MD [facility] CARD SPONDYLOSIS [id number] 01/03/2016 09:24:00 01/03/2016 23:59:59 CLS Outpatient ANU FRANKEL APRN [facility] RAD HEADACHES,CHANGE IN LOC [id number] 03/29/2013 12:52:00 06/27/2013 00:01:00 DIS Outpatient BRANDY LANGE MD [facility] CARD SYNCOPE,PALPITATIONS, [id number] 05/10/2013 10:45:00 05/10/2013 18:15:00 DIS Outpatient DANAE NAVARRO FACNaveen, ACRLOS SMITHP CCDS [facility] CATH CP,DYSPNEA, HTN [id number] 05/09/2013 08:35:00 05/09/2013 23:59:59 CLS Outpatient DANAE NAVARRO FACNaveen, ALI SARAHP CCDS [facility] CARD CP,DYSPNEA [id number] 12/27/2012 06:03:00 12/27/2012 09:35:00 DIS Outpatient CALLY HAMM DPM [facility] SDC SOFT TISSUE LESION LEFT FOOT [id number] 12/23/2012 11:48:00 12/23/2012 23:59:59 CLS Outpatient HANSEL CALLY ESTEVEZ Q [facility] PREOP SOFT TISSUE LESION LEFT FOOT [id number] 11/27/2012 11:04:00 11/27/2012 23:59:59 CLS Outpatient [id number] 08/25/2012 13:19:00 08/25/2012 23:59:59 CLS Outpatient JONATHAN BARBA MD [facility] RAD LOW BACK PAIN [id number] 11/26/2017 08:52:00 Document Registration [id number] 01/03/2016 09:24:00 Document Registration [id number] 01/03/2016 09:24:00 Document Registration [id number] 01/03/2016 09:24:00 Document Registration [id number] 07/06/2014 11:20:00 Document Registration [id number] 06/28/2013 13:00:00 Document Registration [id number] 09/08/2011 10:55:00 Document Registration [id number] 08/01/2011 09:00:00 Document Registration [id number] 05/02/2011 08:45:00 Document Registration [id number] 08/16/2010 08:50:00 Document Registration [id number] 08/31/2007 09:19:00 Document Registration
[2017-11-26] MEDS ORDERED: BUP/EPI 0.5% 1:200,000 (SENSORCAINE) 30 ML VIAL ONE (10:54)
[2017-11-26] MEDS ORDERED: FAMOTIDINE 20MG/2ML IV (PEPCID) ONE (11:29)
[2017-11-26] MEDS ORDERED: SUCCINYLCHOLINE INJ 100 MG/5 ML SYR ONE ×2 (11:31→11:37)
[2017-11-26] MEDS ORDERED: LIDOCAINE PF 2% 5 ML (XYLOCAINE) VIAL ONE (11:31)
[2017-11-26] MEDS ORDERED: proPOfol 200 MG/20 ML (DIPRIVAN) VIAL IV ONE (11:31)
[2017-11-26] MEDS ORDERED: SEVOFLURANE (ULTANE) 15 ML INHAL SOLN ONE ×2 (11:31→11:37)
[2017-11-26] MEDS ORDERED: fentaNYL INJECTION 100 MCG/2 ML AMP ONE (11:31)
[2017-11-26] MEDS ORDERED: ROCURONIUM 10 MG/ML 5 ML SYRINGE IV ONE (11:31)
[2017-11-26] MEDS ORDERED: MIDAZOLAM 2 MG/2 ML (VERSED) VIAL ONE (11:32)
[2017-11-26] MEDS ORDERED: DEXAMETHASONE 10 MG/ML (DECADRON) 1 ML VIAL ONE (11:33)
[2017-11-26] MEDS ORDERED: FAMOTIDINE 20MG/2ML IV (PEPCID) IVP ONE (11:45)
[2017-11-26] MEDS ORDERED: NEOSTIGMINE 1 MG/ML 5 ML SYRINGE ONE (13:26)
[2017-11-26] MEDS ORDERED: GLYCOPYRROLATE 0.2 MG/ML (ROBINUL) 2 ML VIAL ONE (13:26)
--- NOTE | 2017-11-26 13:59 | Progress Note-Post Operative ---
Post-Operative Progess Note Surgeon (s)/Flying Teacher (s) Surgeon WAYNE AVILA MD Flying Teacher: freda escalera REAL ESTATE MANAGEMENT SPECIALIST Pre-Operative Diagnosis ventral abdominal incisional hernia, weight loss Post-Operative Diagnosis incarcerated ventral abdominal incisional hernia with small bowel. no internal hernias. extensive adhesions. Procedure & Operative Findings Date of Procedure 11/26/17 Procedure Performed/Findings diagnostic laparoscopy, lysis of adhesions, ventral abdominal incisional hernia repair with mesh. Anesthesia Type GET Estimated Blood Loss Estimated blood loss (mL): minimal Specimens/Packing Specimens Removed none WAYNE AVILA MD Nov 26, 2017 13:59
[2017-11-26] MEDS ORDERED: HYDR-34 PO (14:00)
--- NOTE | 2017-11-26 14:01 | Discharge Inst-Surgical ---
D/C Lap Instructions-MARGARITA New, Converted, or Re-Newed RX: RX on Chart Follow Up Appt in 2 weeks Activity as tolerated No driving for 24 hours No [address] while on pain medications Incentive Spirometry use every 2 hours while awake Regular Diet Symptoms to Report: Fever over 101 degree F, Nausea/Vomiting Infection Signs and Symptoms to report: Increased redness, Foul odor of wound, Increased drainage Bathing instructions: May shower Operative Area Clean/Dry; Keep incision clean/dry If any problems/questions: Contact your physician or go to Emergency Room WAYNE AVILA MD Nov 26, 2017 14:00
[2017-11-26] MEDS: morphine INJ 10 MG/ML 1ML (SYR OR VIAL) IVP PRN ×2 (14:44→14:50)
[2017-11-26 15:20] VITALS: BP 93/53
[2017-11-26 15:50] VITALS: BP 116/56
--- NOTE | 2017-11-26 16:02 | Anesthesia-General Post-Op ---
General Patient Condition Mental Status/LOC: Same as Preop Cardiovascular: Satisfactory Nausea/Vomiting: Absent Respiratory: Satisfactory Pain: Controlled Complications: Present (Pt is C/O left eye pain. Светлана (BULLDOZER/LOADER/COMPACTOR/SCRAPER) states at the end of her PACU stay she started C/O eye pain. ) Post Op Complications Complications Left eye pain. Follow Up Care/Instructions Patient Instructions None needed. Anesthesia/Patient Condition Patient Condition Patient is doing well with stable vital signs, but C/O Left eye pain. I talked with the patient and she states that it feels like something is in her left eye. Minimal redness. I explained to her and her family member that it was likely an irritation from rubbing her eye on emergence. Nothing noted on anesthesia record. Moist compress as tolerated and the pain should be much improved in 24 hours. She and her family understood and will call Dr Lopez's office in the morning if no better or worse. PEARL BOGGS DO Nov 26, 2017 16:02
[2017-11-26 16:20] VITALS: BP 126/65
[2017-11-26 16:50] VITALS: BP 104/64
[2017-11-26 17:00] VITALS: BP 104/64
--- NOTE | 2017-11-26 22:31 | OPERATIVE REPORT ---
DATE OF SERVICE: 11/26/2017 ATTENDING PRIMARY CARE PHYSICIAN: Dr. Santos. PREOPERATIVE DIAGNOSES: Weight loss, intermittent nausea, vomiting and abdominal pain. POSTOPERATIVE DIAGNOSES: Incarcerated ventral abdominal incisional hernia and intra-abdominal adhesions. No internal herniations. PROCEDURES: Diagnostic laparoscopy, laparoscopic lysis of adhesions for 90 minutes and repair ventral abdominal incisional hernia with mesh. SURGEON: Wayne Avila MD SPECIAL DUTY NURSE: Tello Orlando APRN. ANESTHESIA: General endotracheal. ESTIMATED BLOOD LOSS: Minimal. FINDINGS: Dense adhesions. No internal herniations were identified. There was an incarcerated ventral abdominal incisional hernia from her previous midline laparotomy incision with incarcerated small bowel. No strangulation. No internal hernias. DISPOSITION: The patient tolerated the procedure well. INDICATIONS: The patient is a 67-year-old female known to us. She has had a history of multiple gastrointestinal issues. She had a Timoteo shunt in [place], [place] in the and is unsure what this procedure entails. She stated she did lose initial weight; however, did gain weight back. On 11/07/2016, she underwent an EGD as well as colonoscopy. Findings included esophageal varices of the mid portion of the esophagus, reflux esophagitis, grade II. 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 There were no formal ulcerations and the gastrojejunal anastomosis was normal. Also there appeared to be bile reflux during the procedure indicating a bile acid gastritis and reflux esophagitis. She was referred to gastroenterology and underwent another EGD in 01/2017. A CT scan was also performed as well as a small bowel follow through which did not show any obstruction; however, she did have a ventral abdominal incisional hernia with bowel loops. She reports she has had intermittent abdominal pain in this region and has lost weight and has had intermittent episodes of nausea and vomiting as well. She will require diagnostic laparoscopy for possible internal herniation as well as repair of the ventral abdominal incisional hernia. DESCRIPTION OF PROCEDURE: The patient was brought to the operating room, laid in supine on the table. After adequate IV pain and sedating medications and general endotracheal intubation, the abdomen was prepped and draped in standard surgical fashion. A 0.5% Marcaine with epinephrine was then used to anesthetize the overlying skin in the left upper abdominal quadrant. A small transverse skin incision made using a 15 blade. An 0 silk suture was applied to the medial aspect of the incision for retraction and a Veress needle inserted with a low opening pressure of 0 mmHg and the abdomen was then insufflated to 15 mmHg pressure. The Veress needle removed and a 5 mm Xcel trocar placed followed by a 5 mm 45 degree angle laparoscope visualizing the peritoneal cavity. A 4-quadrant abdominal exploration was performed. There were dense adhesions identified. To identify the anatomy, these adhesions were taken down from the anterior abdominal wall. The gastric pouch was intact as was what appeared to be bypassed segment of small bowel. After running the small bowel, there was no internal herniation identified. There was again dense adhesions to the small bowel as well as ventral abdominal incisional hernia, which was incarcerated; however, no strangulation. We feel that this was the most likely etiology of her symptomatology on an intermittent basis as well as a weight loss. Under direct visualization, we then proceed to place a left lateral 10 mm port followed by a 5 mm port after the skin and peritoneal lining were anesthetized using 0.5% Marcaine and a transverse skin incision made using a 15 blade. We then proceeded with meticulous dissection of the adhesion tissue identifying the bowel loops. This did take approximately 90 minutes. The hernia sac was also dissected out including the small bowel within the hernia sac. The defect was approximately 8 cm across. The lyses of adhesions were performed using Sonicision as well as a sharp dissection with an EndoShears. Good hemostasis was observed. A 15 cm coated polypropylene mesh was then placed into the peritoneal cavity. transfascial sutures were then placed after few absorbable tacks were placed holding the mesh to the abdominal wall. We used a Worcester suture for this and a Mckinley-Jason device to pass suture. We then proceeded with removal of the inflatable balloon and circumferential absorbable tacks in a double crown fashion with visualization of good hemostasis. The 10 mm port site fascia and peritoneum were then closed under direct visualization using a Mckinley-Jason device and an 0 Vicryl suture. The abdomen was desufflated and remaining ports removed. All skin incisions were closed using 4-0 Monocryl running subcuticular suture. Wounds were then cleaned and covered with Dermabond. The patient tolerated the procedure well. We will start IV and oral pain medication as well as a clear liquid diet. Once she is tolerating clears, has good pain control with oral pain medications, ambulating well, we will discharge her home. She will be instructed to do no heavy lifting or exertion for the next 2 weeks and wear abdominal binder for the next 2 weeks as well. Job ID: [id number] DocumentID: [id number] Dictated Date: 11/26/2017 14:14:11 Chemistry Faculty Member Date: 11/26/2017 22:30:41 Dictated By: WAYNE AVILA MD MTDD
== END 2017-11-26 17:00 | disposition home or self-care (01) ==
LOC: SDC 08:21
PROVIDERS: ATTEND Surgery
DX: K43.0 Incisional hernia with obstruction, without gangrene (principal); N99.4 Postprocedural pelvic peritoneal adhesions; R63.4 Abnormal weight loss; R11.2 Nausea with vomiting, unspecified; I25.10 Atherosclerotic heart disease of native coronary artery without angina pectoris; I10 Essential (primary) hypertension; K21.9 Gastro-esophageal reflux disease without esophagitis; Z86.73 Personal history of transient ischemic attack (TIA), and cerebral infarction without residual deficits; Z87.09 Personal history of other diseases of the respiratory system
CPT/HCPCS: 94664

== ENCOUNTER 2017-12-08 13:40 | Inpatient (IN) | payer MEDICARE ==
[~2017-12-08] VITALS: Ht 165.1 cm; Wt 83.6 kg
[~2017-12-08 13:40] MED LIST changes: +HYDR-34 PO
[2017-12-08] MEDS ORDERED: HYDR-3816 PO (15:34)
[2017-12-08] MEDS ORDERED: ALPR1TAB7 PO (15:39)
[2017-12-08] MEDS ORDERED: DOCU-143 PO (15:41)
--- NOTE | 2017-12-08 15:50 | HISTORY AND PHYSICAL ---
DATE OF SERVICE: ATTENDING PRIMARY CARE PHYSICIAN: Dr. Santos. HISTORY OF PRESENT ILLNESS: The patient is a 67-year-old female known to us. She has a history of multiple gastrointestinal issues. She had a Timoteo shunt placed in [place], [place] in the and is unsure of what this procedure entails as do we. She stated that she did lose initial weight; however, did regain the weight back. On 11/07/2016, she underwent an EGD and colonoscopy. Findings included esophageal varices of the mid portion of the esophagus. 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 No formal ulcerations identified and the gastrojejunal anastomosis was normal with no marginal ulcerations. Of note, there did appear to be some bile reflux during the procedure, which may indicate some level of bile acid gastritis and reflux esophagitis. She then underwent another EGD in 01/2017. A CT scan was also performed at the same time with a small bowel follow through, which did not show any obstruction; however, a ventral abdominal incisional hernia with bowel loops within the hernia sac. The patient was referred back to us from gastroenterology for diagnostic laparoscopy to look for possibility of an internal herniation as well as evaluate the ventral abdominal incisional hernia. On 11/26/2017, she underwent the diagnostic laparoscopy and found to have a significant size ventral abdominal incisional hernia, which was incarcerated with small bowel within the hernia sac. She then underwent lysis of adhesions, which was extensive as well as a laparoscopic repair of the ventral abdominal incisional hernia with mesh. The patient did well postoperative and was sent home later that day. She reports that she has felt bad in the past week. She reports nausea and vomiting and abdominal pain. She was given prescribed pain medication; however, reports that this did cause nausea and so, she has not been taking the medication. She does report that she is having bowel movements. She unfortunately states that she is unable to take in adequate amounts of liquids and appears dehydrated and fatigued. Upon examination, there is no recurrence of hernia. This may indicate an ileus versus a gastritis. PAST MEDICAL HISTORY: Coronary artery disease, depression, gastroesophageal reflux disease, hypertension, hyperlipidemia, nephrolithiasis, chronic low back pain, short-term memory loss, morbid obesity. PAST SURGICAL HISTORY: Timoteo shunt 50 years ago. Complete hysterectomy, laparoscopic cholecystectomy in 1989, bladder sling small bowel resection for obstruction in 2011. ALLERGIES: TETRACYCLINE. MEDICATIONS: Zolpidem 10 mg daily, Xanax 1 mg q.a.m. and 2 mg q.p.m., citalopram 40 mg daily, lovastatin 20 mg daily, benazepril 10 mg daily, estradiol 1 mg daily, Protonix 40 mg daily. SOCIAL HISTORY: Negative smoke, negative alcohol. FAMILY HISTORY: Mother, diabetes, myocardial infarction age 72. Father, some form of colon cancer, prostate cancer, stroke, myocardial infarction at 50 years of age. Sister, diabetes, hypertension. Brother, diabetes, stroke age 60, myocardial infarction age 55. VITAL SIGNS: Stable, afebrile. REVIEW OF SYSTEMS: This is a well-nourished female. However, she has sunken eyes and dry tongue consistent with dehydration. She is awake and alert and does answer all questions appropriately. She is not experiencing any shortness of breath or difficulty breathing. No chest pain, palpitations, diaphoresis. Intermittent episodes of nausea, no vomiting, frequent belching, did not have a bowel movement for approximately one week after surgery; however, with laxative was able to have bowel movements. She continues to have pain in the previous area of surgery; however, is not taking any pain medication. No fever or chills; however, has lost some weight since the surgery. All other review of systems negative. PHYSICAL EXAMINATION: CHEST: Few scattered rales and rhonchi bilaterally. HEART: Regular, no murmurs. EXTREMITIES: No lower extremity edema, negative Homans sign. HEENT: No scleral icterus. NECK: No cervical lymphadenopathy. ABDOMEN: Soft with tenderness in the areas of the previous dissection for the hernia and mesh placement. There is no surrounding redness or erythema. There is no recurrence of hernia. SKIN: Warm, dry. ASSESSMENT AND PLAN: A 67-year-old female with nausea and vomiting, dehydration, and abdominal pain. We will admit her for observation and start IV fluids for her dehydration. We will also obtain a CT scan with contrast to evaluate her gastrointestinal tract. We will also proceed with pain control with IV fentanyl as well as antinausea medications. Again, she does appear to have a history of bowel acid reflux and we will also add aluminum containing antacids by mouth. Job ID: [id number] DocumentID: [id number] Dictated Date: 12/08/2017 15:20:35 Optimization Analyst Date: 12/08/2017 15:49:59 Dictated By: WAYNE AVILA MD MTDD
[2017-12-08 16:00] VITALS: BP 129/59
[2017-12-08] MEDS ORDERED: POLYETHYLENE GLYCOL 17 GM (MIRALAX) PACK PO PRN (16:00)
[2017-12-08 16:28] LABS: BUN/CREATININE RATIO 22; CREATININE SERUM 0.73 MG/DL (0.60-1.30); GFR ESTIMATED > 60
[2017-12-08] MEDS: LACTATED RINGERS 1,000 ML IV ONE ×2 (16:32→16:33)
[2017-12-08] MEDS: ONDANSETRON 4 MG/2 ML (SDV) Z0FRAN IV PRN ×2 (16:39→21:18)
[2017-12-08] MEDS ORDERED: IOHEXOL 350 MG/ML 100 ML (OMNIPAQUE 350) VIAL IV ONE (17:15)
[2017-12-08] MEDS ORDERED: NS 100 ML (IVPB) BAG IV ONE (17:15)
[2017-12-08] MEDS: PANTOPRAZOLE 40 MG (PROTONIX) VIAL IV SCH (17:50)
[2017-12-08] MEDS: metroNIDAZOLE 500 MG/100 ML IVPB (PRE-MIX) IV SCH ×2 (17:54→18:05)
[2017-12-08] MEDS: CIPROFLOXACIN 400 MG/D5W 200 ML (PRE-MIX) IV SCH (17:55)
[2017-12-08] MEDS: LACTATED RINGERS 1,000 ML IV SCH (17:56)
--- OUTSIDE RECORDS SUMMARY | 2017-12-08 17:59 | XMS REPORT | Clinical Summary ---
Author Author [facility] Organization [facility] Address Unknown Phone Unavailable Care Team Providers Care Offset Printer Name Role Phone Zack Santos MD PCP Source Comments Some departments are not documenting in the electronic medical record. If you do not see the information that you expected, contact Release of Information in the Health Information Management department at [phone] for further assistance in locating additional records.[facility] Allergies Active Allergy Reactions Severity Noted Date [...]
--- OUTSIDE RECORDS SUMMARY | 2017-12-08 18:02 | XMS REPORT ---
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 Active 60577380 Problem Encounter for long-term (current) use of other medications V58.69 Active 993129135 Problem Major depressive disorder, recurrent episode, mild with anxious distress F33.0 Active 93499517 Problem Depressive disorder, not elsewhere classified 311 Active 45194960 ALLERGIES Substance Reaction Event Type Date Status Tetracycline HCl hives Drug Allergy August, Active Reglan TD Drug Allergy August, Active ENCOUNTERS Encounter Location Date Diagnosis [place] [id number] [place] [address] 12336- 2480 Jan, [place] [address] [place] [id number] [place] [address] 53908- 5561 Nov, Major depressive disorder, recurrent episode, mild with anxious distress F33.0 ; Generalized anxiety disorder F41.1 and 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 [facility] [id number] [place] [address] 25046- 0203 Oct, Major depressive disorder, recurrent episode, mild with anxious distress F33.0 [place] [address] [place] [id number] [place] [address] 85459- 0430 Sep, Major depressive disorder, recurrent episode, mild with anxious distress F33.0 [place] [address] [place] [id number] [place] [address] 07730- 2876 August, Major depressive disorder, recurrent episode, mild with anxious distress F33.0 [place] [address] [address] August, Major depressive disorder, recurrent episode, mild with anxious distress F33.0 ; Generalized anxiety disorder F41.1 and 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 [facility] [address] [address] Jul, Major depressive disorder, recurrent episode, mild with anxious distress F33.0 [facility] [address] [place] [address] 46285- 5366 Jul, Major depressive disorder, recurrent episode, mild with anxious distress F33.0 [facility] [id number] [place] [address] 66784- 1426 Jun, Major depressive disorder, recurrent episode, mild with anxious distress F33.0 [facility] [address] [address] 1935 May, Major depressive disorder, recurrent episode, mild with anxious distress F33.0 [facility] [address] [address] 5344 May, Major depressive disorder, recurrent episode, mild with anxious distress F33.0 ; Generalized anxiety disorder F41.1 and 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 [facility] [address] [place] [id number] [address] 7275 Apr, Major depressive disorder, recurrent episode, mild with anxious distress F33.0 [facility] [address] [address]- 6702 Mar, Major depressive disorder, recurrent episode, mild with anxious distress F33.0 [facility] [address] [place] [address] [id number] [place] [address] 74664- 5193 24 Feb, 2017 Major depressive disorder, recurrent episode, mild with anxious distress F33.0 [facility] [id number] [address] 2590 Feb, Major depressive disorder, recurrent episode, mild with anxious distress F33.0 ; Generalized anxiety disorder F41.1 and 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 [facility] [address] [id number] [address] 9481 Jan, Major depressive disorder, recurrent episode, mild with anxious distress F33.0 [facility] [address] [facility] [id number] [address] Dec, Major depressive disorder, recurrent episode, mild with anxious distress F33.0 [facility] [address] [place] [id number] [place] [address] 11228- 8292 Nov, Major depressive disorder, recurrent episode, mild with anxious distress F33.0 [facility] [address] [place] [id number] [place] [address] 29930- 4529 Nov, [facility] [address] [place] [id number] [place] [address] 44503- 9056 Nov, Major depressive disorder, recurrent episode, mild with anxious distress F33.0 ; Generalized anxiety disorder F41.1 and 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 [facility] [id number] [address]- 0876 Oct, [facility] [address] [place] [address] [id number] [place] [address] 70212- 6849 Oct, Major depressive disorder, recurrent episode, mild with anxious distress F33.0 ; Generalized anxiety disorder F41.1 and 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 [facility] [address] [place] [address] [id number] [place] [address] 75653- 4939 Sep, Major depressive disorder, recurrent episode, mild with anxious distress F33.0 and Generalized anxiety disorder F41.1 [facility] [address] [place] [id number] [place] [address] 59526- 8721 Sep, [facility] [address] [facility] [id number] [place] [address] 16827- 1095 Jul, Major depressive disorder, recurrent episode, mild with anxious distress F33.0 [facility] [address], [place] [address]- 5324 Jun, Major depressive disorder, recurrent episode, mild with anxious distress F33.0 [facility] [address] [id number] [place] [address] 25303- 6757 May, Major depressive disorder, recurrent episode, mild with anxious distress F33.0 [facility] [address] [place] [address] 09648- 9686 May, Major depressive disorder, recurrent episode, mild with anxious distress F33.0 [facility] [id number] [place] [address] 70692- 1513 May, Major depressive disorder, recurrent episode, mild with anxious distress F33.0 and Generalized anxiety disorder F41.1 [facility] [address] [place] [address] 41510- 5929 Jan, [facility] [id number] [place] [address] 41548- 0173 Dec, Major depressive disorder, recurrent episode, mild with anxious distress F33.0 and Insomnia, unspecified type G47.00 [facility] [address] [id number] [place] [address] 01052- 9192 Sep, [facility] [address] [place] [address] 24089- 0590 Sep, Major depressive disorder, recurrent episode, mild with anxious distress F33.0 [facility] [address] [place] [address] 48437- 7247 August, [facility] [address] [place] [address] 54484- 6496 August, Generalized anxiety disorder F41.1 [facility] [address] [id number] [place] [address] 78887- 5792 Jul, [facility] [address] [place] [address] 43363- 7721 Jul, [facility] [id number] [address]- 3514 May, [facility] [address], [place] [address]- 8592 Mar, [facility] [address] [address]- 8866 Mar, [facility] [address] [place] [address] 842982- 9672 Mar, Major depressive disorder, single episode, unspecified F32.9 and Generalized anxiety disorder F41.1 [facility] [address] [place] [address] 47640- 9540 Nov, Depressive disorder, not elsewhere classified 311 and Generalized anxiety disorder 300.02 [facility] [address] [address]- 5169 Nov, [facility] [address] [place] [id number] [place] [address] 59850- 0985 Oct, [facility] [address], [place] [address]- 8444 Sep, [facility] [id number] [address]- 7314 Sep, [facility] [address] [address]- 8281 August, Depressive disorder, not elsewhere classified 311 and Generalized anxiety disorder 300.02 [facility] [address], [place] [address]- 8356 August, [facility] [address], [place] [address]- 3953 Jul, [facility] [address] [address]- 6810 Jul, [facility] [address], [place] [address]- 4157 Apr, [facility] [address] [id number] [place] [address], [place] [address]- 0994 13 Apr, 2014 [facility] [place] [facility] [address] [id number] [place] [address]- 1698 15 Mar, 2014 [facility] [place] [facility] [address] [id number] [place] [address]- 0585 15 Mar, 2014 [facility] [place] [facility] [address] [id number] [place] [address]- 7293 15 Mar, 2014 [facility] [place] [facility] [address] [id number] [place] [address]- 0415 15 Mar, 2014 [facility] [place] [facility] [address] [id number] [place] [address]- 2924 15 Mar, 2014 [facility] [place] [facility] [address] [id number] [place] [address]- 3597 15 Mar, 2014 [facility] [place] [facility] [address] [id number] [place] [address]- 8319 11 Feb, 2014 [facility] [place] [facility] [address] [id number] [place] [address]- 8431 Feb, [facility] [place] [facility] [address] [id number] [place] [address]- 9589 14 Jan, 2014 [facility] [place] [facility] [address] [id number] [place] [address]- 0872 14 Jan, 2014 [facility] [place] [facility] [address] [id number] [place] [address]- 0003 09 Dec, 2013 [facility] [place] [facility] [address] [id number] [place] [address]- 7449 09 Dec, 2013 [facility] [place] [facility] [address] [id number] [place] [address]- 2026 15 Nov, 2013 [facility] [place] [facility] [address] [id number] [place] [address]- 4428 15 Nov, 2013 [facility] [place] [facility] [address] [id number] [place] [address]- 2903 14 Oct, 2013 [facility] [place] [facility] [address] [id number] [place] [address]- 6410 Oct, [facility] [place] [facility] [address] [id number] [place] [address]- 0915 Oct, [facility] [place] [facility] [address] [id number] [place] [address]- 8164 Oct, [facility] [place] [facility] [address] [id number] [place] [address]- 0766 Sep, [facility] [place] [facility] [address] [id number] [place] [address]- 0611 Sep, [facility] [place] [facility] [address] [id number] [place] [address]- 6138 August, [facility] [place] [facility] [address] [id number] [place] [address]- 5892 August, [facility] [place] [facility] [address] [id number] [place] [address]- 4067 Jul, [facility] [place] [facility] [address] [id number] [place] [address]- 2640 Jul, [facility] [place] [facility] [address] [id number] [place] [address]- 3612 May, [facility] [place] [facility] [address] [id number] [place] [address]- 0953 May, [facility] [place] [facility] [address] [id number] [place] [address]- 5971 Apr, [facility] [place] [facility] [address] [id number] [place] [address]- 9736 Apr, [facility] [place] [facility] [address] [id number] [place] [address]- 7977 Apr, [facility] [place] [facility] [address] [id number] [place] [address]- 1135 Apr, [facility] [place] [facility] [address] [id number] [place] [address]- 2546 Apr, [facility] [address] [id number] [place] [address]- 6462 Jan, [facility] [place] [facility] [address] [id number] [place] [address]- 5485 Jan, [facility] [place] [facility] [address] [id number] [place] [address]- 9816 Nov, [facility] [place] [facility] [address] [id number] [place] [address]- 9596 Oct, [facility] [place] [facility] [address] [id number] [place] [address]- 0308 August, [facility] [place] [facility] [address] [id number] [place] [address]- 0487 Jul, [facility] [place] [facility] [address] [id number] [place] [address]- 5843 Jul, [facility] [place] [facility] [address] [id number] [place] [address]- 6354 Jul, [facility] [place] [facility] [address] [id number] [place] [address]- 0881 Apr, [facility] [place] [facility] [address] [id number] [place] [address]- 5967 Apr, [facility] [place] [facility] [address] [id number] [place] [address]- 8162 Apr, [facility] [place] [facility] [address] [id number] [place] [address]- 8121 Jan, [facility] [place] [facility] [address] [id number] [place] [address]- 4572 Jan, [facility] [place] [facility] [address] [id number] [place] [address]- 5669 Dec, [facility] [place] [facility] [address] [id number] [place] [address]- 5283 Oct, [facility] [place] [facility] [address] [id number] [address]- 7684 Jul, [facility] [address] [facility] [id number] [address]99 Jul, [facility] [id number] [address]- 4016 Jul, [facility] [address] [place] [address]- 6732 Jun, [facility] [address] [facility] [id number] [place] [address]- 5872 Mar, [facility] [id number] [place] [address], [place]- 9508 Mar, [facility] [id number] [address]- 5361 Feb, [facility] [id number] [place] [address] 99604- 3246 Feb, [facility] [address], [place] [address]- 3932 Mar, [facility] [address] [address]- 4637 Feb, [facility] [address] [address]- 9950 Feb, [facility] [address] [address]- 8026 Feb, [facility] [id number] [address]- 0169 Jan, [facility] [address] 8168 Jan, IMMUNIZATIONS No Known Immunizations SOCIAL HISTORY Never Assessed REASON FOR VISIT ILDA f/u [facility] OF C[facility] Activity Details Follow Up 3 Months Reason:ILDA f/u VITAL SIGNS Height 65.5 in 2017-08-31 Weight 194 lbs 2017-08-31 Heart Rate 82 bpm 2017-08-31 Respiratory Rate 20 2017-08-31 BMI 31.79 kg/m2 2017-08-31 Blood pressure systolic 116 mmHg 2017-08-31 Blood pressure diastolic 74 mmHg 2017-08-31 MEDICATIONS Medication Instructions Dosage Frequency Start Date End Date Duration Status Celexa 20 mg Orally Once a day 1.5 tablet 24h Active Alprazolam 1 MG Orally daily- no early refills TAKE ONE TABLET BY MOUTH FOUR TIMES DAILY NEEDED Active Estropipate by Oral route Apr, Not-Taking Reglan 10 mg 1 Tablet by Oral route 4 times per day Apr, Not-Taking Ambien 10 MG Orally Once a day 1 tablet at bedtime as needed 24h Active Lovastatin 20 mg 1 Tablet by Oral route 1 time per day Apr, Active Benazepril-Hydrochlorothiazide 10-12.5 mg 1 Tablet by Oral route 1 time per day Apr, Active Aspir-Low 81 MG Orally Once a day 1 tablet 24h Active RESULTS No Results PROCEDURES Procedure Date Ordered Result Body Site [facility] VISIT ESTABLISHED PATIENT August 31, 2017 INSTRUCTIONS MEDICATIONS ADMINISTERED No Known Medications [...] blockage, bariatric surgery , appendectomy, tonsillectomy, hysterectomy Surgical History hernia repair/exploratory 11/2017 Hospitalization History Surgical and childbirth Hospitalization History ECT treatments x 20, [place] inpatient [facility] about x 4 Hospitalization History stroke hospitalized for two nights 11/2016
--- OUTSIDE RECORDS SUMMARY | 2017-12-08 18:02 | XMS REPORT ---
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 Active 58841782 Problem Encounter for long-term (current) use of other medications V58.69 Active 617625794 Problem Major depressive disorder, recurrent episode, mild with anxious distress F33.0 Active 93570365 Problem Depressive disorder, not elsewhere classified 311 Active 33655554 ALLERGIES No Information ENCOUNTERS Encounter Location Date Diagnosis [facility] [id number] [place] [address] 30668- 4369 Jan, [facility] [id number] [place] [address] 32396- 6370 Nov, Major depressive disorder, recurrent episode, mild with anxious distress F33.0 ; Generalized anxiety disorder F41.1 and 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 [facility] [id number] [place] [address] 49372- 1079 Oct, Major depressive disorder, recurrent episode, mild with anxious distress F33.0 [facility] [id number] [place] [address] 31456- 6721 Sep, Major depressive disorder, recurrent episode, mild with anxious distress F33.0 [facility] [id number] [place] [address] 89378- 6259 August, Major depressive disorder, recurrent episode, mild with anxious distress F33.0 [facility] [id number] [place] [address] 19051- 5738 August, Major depressive disorder, recurrent episode, mild with anxious distress F33.0 ; Generalized anxiety disorder F41.1 and 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 [facility] [id number] [place] [address] 38144- 3170 Jul, Major depressive disorder, recurrent episode, mild with anxious distress F33.0 [facility] [address] [address] Jul, Major depressive disorder, recurrent episode, mild with anxious distress F33.0 [facility] [id number] [place] [address] 93002- 6626 Jun, Major depressive disorder, recurrent episode, mild with anxious distress F33.0 [facility] [id number] [place] [address] 51353- 5627 May, Major depressive disorder, recurrent episode, mild with anxious distress F33.0 [facility] [id number] [place] [address] 77283- 4017 May, Major depressive disorder, recurrent episode, mild with anxious distress F33.0 ; Generalized anxiety disorder F41.1 and 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 [facility] [id number] [place] [address] 86612- 6914 Apr, Major depressive disorder, recurrent episode, mild with anxious distress F33.0 [facility] [id number] [place] [address] 66800- 9151 Mar, Major depressive disorder, recurrent episode, mild with anxious distress F33.0 [facility] [address] [address] 5805 Feb, Major depressive disorder, recurrent episode, mild with anxious distress F33.0 [facility] [id number] [place] [address] 46035- 6594 Feb, Major depressive disorder, recurrent episode, mild with anxious distress F33.0 ; Generalized anxiety disorder F41.1 and 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 [facility] [id number] [address] 1675 Jan, Major depressive disorder, recurrent episode, mild with anxious distress F33.0 [facility] [id number] [address]- 0666 Dec, Major depressive disorder, recurrent episode, mild with anxious distress F33.0 [facility] [id number] [address] 5093 Nov, Major depressive disorder, recurrent episode, mild with anxious distress F33.0 [facility] [id number] [address]- 4934 Nov, [facility] [id number] [place] [address] 45851- 6007 Nov, Major depressive disorder, recurrent episode, mild with anxious distress F33.0 ; Generalized anxiety disorder F41.1 and 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 [facility] [address] [address]- 6669 Oct, [facility] [id number] [address]- 1665 Oct, Major depressive disorder, recurrent episode, mild with anxious distress F33.0 ; Generalized anxiety disorder F41.1 and 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 [facility] [id number] [address]- 3615 Sep, Major depressive disorder, recurrent episode, mild with anxious distress F33.0 and Generalized anxiety disorder F41.1 [facility] [id number] [address]- 5939 Sep, [facility] [id number] [address]- 6910 Jul, Major depressive disorder, recurrent episode, mild with anxious distress F33.0 [facility] [id number] [address]- 5322 Jun, Major depressive disorder, recurrent episode, mild with anxious distress F33.0 [facility] [id number] [place] [address] 57123- 2412 17 May, 2016 Major depressive disorder, recurrent episode, mild with anxious distress F33.0 [facility] [id number] [place] [address] 80082- 1370 16 May, 2016 Major depressive disorder, recurrent episode, mild with anxious distress F33.0 [facility] [id number] [place] [address] 54610- 3816 May, Major depressive disorder, recurrent episode, mild with anxious distress F33.0 and Generalized anxiety disorder F41.1 [facility] [id number] [place] [address] 29971- 8121 Jan, [facility] [id number] [place] [address] 82492- 3825 Dec, Major depressive disorder, recurrent episode, mild with anxious distress F33.0 and Insomnia, unspecified type G47.00 [facility] [id number] [place] [address] 27885- 0092 Sep, [facility] [id number] [place] [address] 16862- 2270 Sep, Major depressive disorder, recurrent episode, mild with anxious distress F33.0 [facility] [id number] [place] [address] 96722- 4617 August, [facility] [id number] [place] [address] 63858- 5916 August, Generalized anxiety disorder F41.1 [facility] [id number] [place] [address] 96852- 7982 Jul, [facility] [id number] [place] [address] 73135- 3332 Jul, [facility] [id number] [place] [address] 65323- 9836 May, [facility] [address] [address]- 9034 Mar, [facility] [address] 8349 Mar, [facility] [address] [address]365 Mar, Major depressive disorder, single episode, unspecified F32.9 and Generalized anxiety disorder F41.1 [facility] [address] [address]- 1714 Nov, Depressive disorder, not elsewhere classified 311 and Generalized anxiety disorder 300.02 [facility] [address] [address]- 2520 Nov, [facility] [address] [address]- 4369 Oct, [facility] [address], [place] [address]- 3930 Sep, [facility] [address] [address]- 3619 Sep, [facility] [address] [address]- 2596 August, Depressive disorder, not elsewhere classified 311 and Generalized anxiety disorder 300.02 [facility] [address] [address]- 1544 August, [facility] [address], [place] [address]- 0317 Jul, [facility] [address], [place] [address]- 4941 Jul, [facility] [address] [address]- 6703 Apr, [facility] [address] [address]- 4209 Apr, [facility] [id number] [place] [address]- 4073 15 Mar, 2014 [facility] [place] [facility] [address] [id number] [place] [address]7 15 Mar, 2014 [facility] [place] [facility] [address] [id number] [place] [address]- 3347 15 Mar, 2014 [facility] [place] [facility] [address] [id number] [place] [address]- 2874 15 Mar, 2014 [facility] [place] [facility] [address] [id number] [place] [address]- 7318 15 Mar, 2014 [facility] [place] [facility] [address] [id number] [place] 3770 15 Mar, 2014 [facility] [place] [facility] [address] [id number] [place] [address]- 6131 Feb, [facility] [place] [facility] [address] [id number] [place] [address]- 1928 Feb, [facility] [place] [facility] [address] [id number] [place] [address]- 1042 14 Jan, 2014 [facility] [place] [facility] [address] [id number] [place] [address]- 4132 14 Jan, 2014 [facility] [place] [facility] [address] [id number] [place] [address]- 8090 09 Dec, 2013 [facility] [place] [facility] [address] [id number] [place] [address]- 0650 09 Dec, 2013 [facility] [place] [facility] [address] [id number] [place] [address]- 4497 Nov, [facility] [place] [facility] [address] [id number] [place] [address]- 1313 Nov, [facility] [place] [facility] [address] [id number] [place] [address]- 1493 14 Oct, 2013 [facility] [place] [facility] [address] [id number] [place] 0136 Oct, [facility] [place] [facility] [address] [id number] [place] [address]- 8740 Oct, [facility] [place] [facility] [address] [id number] [place] [address]- 0987 Oct, [facility] [place] [facility] [address] [id number] [place] [address]- 1554 Sep, [facility] [place] [facility] [address] [id number] [place] [address]- 5812 Sep, [facility] [place] [facility] [address] [id number] [place] [address]- 9691 August, [facility] [place] [facility] [address] [id number] [place] [address]- 1982 August, [facility] [place] [facility] [address] [id number] [place] [address]- 4450 Jul, [facility] [place] [facility] [address] [id number] [place] [address]- 1497 Jul, [facility] [place] [facility] [address] [id number] [place] [address]- 6725 May, [facility] [place] [facility] [address] [id number] [place] [address]- 8332 May, [facility] [place] [facility] [address] [id number] [place] [address]- 3370 Apr, [facility] [place] [facility] [address] [id number] [place] [address]- 8715 Apr, [facility] [place] [facility] [address] [id number] [place] [address]- 1538 Apr, [facility] [place] [facility] [address] [id number] [place] [address]- 6381 Apr, [facility] [place] [facility] [address] [id number] [place] [address]- 9556 Apr, [facility] [place] [facility] [address] [id number] [place] [address]- 0834 Jan, [facility] [address] [id number] [place] [address]- 4547 Jan, [facility] [address] [id number] [place] [address]- 9691 Nov, [facility] [address] [id number] [place] [address]- 9636 Oct, [facility] [address] [id number] [place] [address]- 0192 August, [facility] [address] [id number] [place] [address]- 2851 Jul, [facility] [address] [id number] [place] [address]- 0030 Jul, [facility] [address] [id number] [place] [address]- 0986 Jul, [facility] [address] [id number] [place] [address]- 5124 Apr, [facility] [address] [id number] [place] [address]- 1341 Apr, [facility] [address] [id number] [place] [address]- 8111 Apr, [facility] [address] [id number] [place] [address]- 7472 Jan, [facility] [address] [id number] [place] [address]- 8041 Jan, [facility] [place] [facility] [address] [id number] [place] [address]- 1901 Dec, [facility] [place] [facility] [address] [id number] [place] [address]- 7806 Oct, [facility] [address] [id number] [place] [address]- 2754 Jul, [facility] [address] [facility] [address] [id number] [address]- 7400 Jul, [facility] [address] [facility] [address] [id number] [address]- 0986 Jul, [facility] [address] [facility] [address] [id number] [address]- 8453 Jun, [facility] [address] [facility] [address] [id number] [address]- 9769 Mar, [facility] [address] [facility] [address] [id number] [address]- 9426 Mar, [facility] [address] [facility] [address] [id number] [address]- 6854 Feb, [facility] [address] [address]- 3830 Feb, [facility] [address] [address]- 2839 Mar, [facility] [address], [place] [address]- 8298 Feb, [facility] [address] [address]- 7457 Feb, [facility] [address] [address]- 0996 Feb, [facility] [address] [address]- 8625 Jan, [facility] [id number], [place] [address]- 4488 Jan, IMMUNIZATIONS No Known Immunizations SOCIAL HISTORY Never Assessed REASON FOR VISIT Controlled med refill PLAN OF CARE VITAL SIGNS MEDICATIONS Medication Instructions Dosage Frequency Start Date End Date Duration Status Alprazolam 1 MG Orally 4 times a day PRN 1 tablet 30 days Active Ambien 10 mg Orally Once a [...] childbirth Hospitalization History ECT treatments x 20, [facility] about x 4 Hospitalization History stroke hospitalized for two nights 11/2016
[2017-12-08] MEDS: fentaNYL INJECTION 100 MCG/2 ML AMP IV PRN (18:05)
--- OUTSIDE RECORDS SUMMARY | 2017-12-08 18:06 | XMS REPORT | Continuity of Care Document ---
Author Author [facility] Address Unknown Phone Unavailable Allergies Active Description Code Type Severity Reaction Onset Reported/Identified Relationship to Patient Clinical Status Yes TETRACYCLINE [id number] DRUG N/A N/A Yes tetracycline Drug Allergy 03/03/2011 Yes tetracycline Drug Allergy N/ A N/A 03/03/2011 Yes tetracycline [id number] Drug Allergy Mild N/A 11/05/2016 Medications There [...] APRN V58.69 MEDICATION HIGH RISK 08/12/2012 TAYLOR SENIOR SALES DIRECTOR, JOHN V58.69 MEDICATION HIGH RISK 08/12/2012 TAYLOR [...] NEOPLASM OF IDRIS 01/03/2016 JOSTIN ANU Head SENIOR SALES DIRECTOR Ot R51 HEADACHE 01/04/2016 ANU FRANKEL SENIOR SALES DIRECTOR Ot R51 HEADACHE 01/25/2016 ANU FRANKEL SENIOR SALES DIRECTOR Ot R51 HEADACHE 01/30/2016 ANU FRANKEL SENIOR SALES DIRECTOR Ot R51 HEADACHE 02/08/2016 Ot 780.2 SYNCOPE [...] MAMMO-MALIGN NEOPLASM OF IDRIS 02/08/2016 ANU FRANKEL SENIOR SALES DIRECTOR Ot R51 HEADACHE 02/08/2016 JOSUE NAVARRO, IRA [...] MD, Ot I25.10 ATHSCL HEART DISEASE OF [place] CORONARY 11/07/2016 WAYNE AVILA MD, Ot I85.00 [...] 11/07/2016 WAYNE AVILA MD, Ot Z79.899 OTHER FOURCHETTE SEWER (CURRENT) DRUG THERAPY 11/11/2016 WAYNE AVILA MD, Ot E78.5 HYPERLIPIDEMIA, UNSPECIFIED 11/11/2016 WAYNE AVILA MD Ot F32.9 MAJOR DEPRESSIVE DISORDER, SINGLE EPISOD 11/11/2016 WAYNE AVILA MD Ot I10 ESSENTIAL (PRIMARY) HYPERTENSION 11/11/2016 WAYNE AVILA MD, Ot I25.10 ATHSCL HEART DISEASE OF [place] CORONARY 11/11/2016 WAYNE AVILA MD Ot I85.00 [...] 11/11/2016 WAYNE AVILA MD Ot Z79.899 OTHER [place]TTE SEWER (CURRENT) DRUG THERAPY 12/16/2016 WAYNE AVILA MD Ot K21.9 GASTRO-ESOPHAGEAL REFLUX DISEASE WITHOUT 12/16/2016 WAYNE AVILA MD Ot R19.7 DIARRHEA, UNSPECIFIED 12/16/2016 WAYNE AVILA MD Ot R63.4 ABNORMAL WEIGHT LOSS 12/16/2016 WAYNE AVILA MD Ot Z98.0 INTESTINAL BYPASS [...] MAMMOGRAM FOR MALIGNANT NE 03/24/2017 ANU FRANKEL SENIOR SALES DIRECTOR Ot J98.01 ACUTE BRONCHOSPASM 03/24/2017 ANU FRANKEL SENIOR SALES DIRECTOR Ot R06.02 SHORTNESS OF BREATH 04/02/2017 ANU FRANKEL SENIOR SALES DIRECTOR Ot J98.01 ACUTE BRONCHOSPASM 04/02/2017 ANU FRANKEL SENIOR SALES DIRECTOR Ot R06.02 SHORTNESS OF BREATH 10/06/2017 FREDA [...] MAMMO-MALIGN NEOPLASM OF IDRIS 10/06/2017 ANU FRANKEL SENIOR SALES DIRECTOR Ot R51 HEADACHE 10/06/2017 WAYNE AVILA MD Ot K21.9 GASTRO-ESOPHAGEAL REFLUX DISEASE WITHOUT 10/06/2017 WAYNE AVILA MD Ot R19.7 DIARRHEA, UNSPECIFIED 10/06/2017 WAYNE AVILA MD Ot R63.4 ABNORMAL WEIGHT LOSS 10/06/2017 WAYNE AVILA MD Ot Z98.0 INTESTINAL BYPASS AND ANASTOMOSIS STATUS 10/06/2017 BRANDY LANGE MD Ot N64.4 MASTODYNIA 10/06/2017 BRANDY LANGE MD Ot Z12.31 ENCNTR SCREEN MAMMOGRAM FOR MALIGNANT NE 10/06/2017 ANU FRANKEL SENIOR SALES DIRECTOR Ot J98.01 ACUTE BRONCHOSPASM 10/06/2017 ANU FRANKEL SENIOR SALES DIRECTOR Ot R06.02 SHORTNESS OF BREATH 10/09/2017 VARSHA [...] Procedures Code Description [place] [address] EKG, TRACING (IN-HOUSE) 08/18/2012 Results Test Result Range Methicillin resistant Staphylococcus aureus (MRSA) screening culture - 15:00 Methicillin resistant Staphylococcus aureus (MRSA) screening culture NEG NRG [id number] - 10/08/17 12:18 Serum or plasma urea nitrogen measurement (mass/volume) 16 mg/dL 7-18 Serum or plasma creatinine measurement (mass/volume) 0.70 mg/dL 0.60-1.30 Serum or plasma urea nitrogen/creatinine mass ratio 23 NRG Serum or plasma creatinine measurement with calculation of estimated glomerular filtration rate > NRG Complete blood count (CBC) with automated white blood cell (WBC) differential - 11/24/17 09:35 Blood leukocytes automated count (number/volume) 5.6 10*3/uL 4.3-11.0 Blood erythrocytes automated count (number/volume) 4.52 10*6/uL 4.35-5.85 Venous blood hemoglobin measurement (mass/volume) 13.2 g/dL 11.5-16.0 Blood hematocrit (volume fraction) 38 % 35-52 Automated erythrocyte mean corpuscular volume 85 [foz_us] 80-99 Automated erythrocyte mean corpuscular hemoglobin (mass per erythrocyte) 29 pg 25-34 Automated erythrocyte mean corpuscular hemoglobin concentration measurement ( mass/volume) 35 g/dL 32-36 Automated erythrocyte distribution width ratio 14.6 % 10.0-14.5 Automated blood platelet count (count/volume) 276 10*3/uL 130-400 Automated blood platelet mean volume measurement 10.1 [foz_us] 7.4-10.4 Automated blood neutrophils/100 leukocytes 58 % 42-75 Automated blood lymphocytes/100 leukocytes 30 % 12-44 Blood monocytes/100 leukocytes 9 % 0-12 Automated blood eosinophils/100 leukocytes 3 % 0-10 Automated blood basophils/100 leukocytes 1 % 0-10 Blood neutrophils automated count (number/volume) 3.2 10*3 1.8-7.8 Blood lymphocytes automated count (number/volume) 1.7 10*3 1.0-4.0 Blood monocytes automated count (number/volume) 0.5 10*3 0.0-1.0 Automated eosinophil count 0.2 10*3/uL 0.0-0.3 Automated blood basophil count (count/volume) 0.0 10*3/uL 0.0-0.1 Methicillin resistant Staphylococcus aureus (MRSA) screening culture - 09:35 Methicillin resistant Staphylococcus aureus (MRSA) screening culture NEG NRG Encounters ACCT No. Visit Date/Time Discharge Status Pt. Type Provider Facility Loc./Unit Complaint [id number] 09/30/2017 14:18:45 09/30/2017 23:59:59 CLS Outpatient Ricky Donato [id number] 09/24/2017 13:54:13 09/24/2017 23:59:59 CLS Outpatient Ricky Donato [id number] 08/23/2017 14:25:47 08/23/2017 23:59:59 CLS Outpatient Dave Siddiqui [id number] 08/14/2017 18:00:50 08/14/2017 23:59:59 CLS Outpatient Zarina Tafoya [id number] 08/03/2017 18:05:16 08/03/2017 23:59:59 CLS Outpatient DossKamlesh [id number] 06/11/2017 18:05:29 06/11/2017 23:59:59 CLS Outpatient Zarina Tafoya [id number] 05/25/2017 18:12:58 05/25/2017 23:59:59 CLS Outpatient Kamlesh Doss [id number] 02/15/2017 14:07:34 02/15/2017 23:59:59 CLS Outpatient Zarina Tafoya [id number] 02/13/2017 11:48:13 02/13/2017 23:59:59 CLS Outpatient Travis Geronimo [id number] 03/26/2015 18:11:34 03/26/2015 23:59:59 CLS Outpatient Pj Munoz S [id number] 03/02/2015 11:45:05 03/02/2015 23:59:59 [place] S [id number] 08/31/2017 11:40:00 08/31/2017 23:59:59 CLS Outpatient DELMAR NICK LAC [facility] [id number] 09/24/2017 14:55:16 Document Registration [id number] 08/14/2017 19:12:16 Document Registration [id number] 08/14/2017 17:46:26 Document Registration [id number] 06/11/2017 18:31:49 Document Registration [id number] 12/18/2016 10:26:15 Document Registration [id number] 12/09/2016 22:30:57 Document Registration [id number] 12/09/2016 21:35:39 Document Registration [id number] 05/02/2014 11:52:00 05/02/2014 23:59:59 CLS Outpatient JOHN VAZQUEZ APRN [id number] 05/02/2014 11:52:00 05/02/2014 23:59:59 CLS Outpatient JOHN VAZQUEZ APRN [id number] 09/20/2013 14:41:00 09/20/2013 23:59:59 CLS Outpatient MARIS LESLIE APRN [id number] 05/02/2013 16:47:00 05/02/2013 23:59:59 CLS Outpatient MARIS LESLIE APRN [id number] 11/19/2012 12:45:00 11/19/2012 23:59:59 CLS Outpatient ANUJ SENIOR SALES DIRECTORMARIS [id number] 07/21/2012 12:44:00 07/21/2012 23:59:59 CLS Outpatient MARIS LESLIE APRN [id number] 04/22/2012 12:46:00 04/22/2012 23:59:59 CLS Outpatient MARIS LESLIE APRN [id number] 08/18/2012 10:20:00 Document Registration [id number] 03/29/2013 13:20:30 ACT Document Registration [id number] 10/08/2017 11:37:00 10/08/2017 23:59:59 CLS Outpatient VARSHA TONEY MD [facility] RAD DIFFUSE,ABD PAIN, WT LOSS [id number] 03/04/2017 11:49:00 03/04/2017 23:59:59 CLS Outpatient ANU FRANKEL APRN [facility] RAD SOB [id number] 02/12/2017 12:58:00 02/12/2017 23:59:59 CLS Outpatient BRANDY LANGE MD [facility] RAD SCREENING [id number] 11/18/2016 08:30:00 11/18/2016 23:59:59 CLS Outpatient WAYNE AVILA MD [facility] RAD DIARRHEA,GERD,WT LOSS [id number] 11/07/2016 12:17:00 11/07/2016 14:30:00 DIS Outpatient WAYNE AVILA MD [facility] ENDO CHANGE IN BOWEL HABITS, WT LOSE AND ABDOMINAL PAIN [id number] 11/05/2016 05:40:00 11/05/2016 14:35:00 DIS Outpatient WAYNE AVILA MD [facility] PREOP CHANGE IN BOWEL HABITS , WEIGHT LOSS AND ABD PAIN [id number] 07/30/2016 06:25:00 07/30/2016 09:57:00 DIS Outpatient MARTHA FORRESTER MD [facility] MACROPLASTIQUE [id number] 07/21/2016 14:47:00 07/21/2016 15:02:00 DIS Outpatient MARTHA FORRESTER MD [facility] PREOP MACROPLASTIQUE [id number] 02/08/2016 07:24:00 02/08/2016 08:34:00 DIS Outpatient IRA SALAS MD [facility] CARD SPONDYLOSIS [id number] 01/03/2016 09:24:00 01/03/2016 23:59:59 CLS Outpatient ANU FRANKEL APRN [facility] RAD HEADACHES,CHANGE IN LOC [id number] 03/29/2013 12:52:00 06/27/2013 00:01:00 DIS Outpatient NAZARIO NAVARRO, BRANDY Beckham [facility] CARD SYNCOPE,PALPITATIONS, [id number] 05/10/2013 10:45:00 05/10/2013 18:15:00 DIS Outpatient DANAE NAVARRO FACC, CARLOS REYEZ CCDS [facility] CATH CP,DYSPNEA, HTN [id number] 05/09/2013 08:35:00 05/09/2013 23:59:59 CLS Outpatient DANAE NAVARRO FACC, CARLOS REYEZ CCDS [facility] CARD CP,DYSPNEA [id number] 12/27/2012 06:03:00 12/27/2012 09:35:00 DIS Outpatient HANSEL DPM, CALLY Q [facility] SOFT TISSUE LESION LEFT FOOT [id number] 12/23/2012 11:48:00 12/23/2012 23:59:59 CLS Outpatient HANSEL DPM, CALLY Q [facility] PREOP SOFT TISSUE LESION LEFT FOOT [id number] 11/27/2012 11:04:00 11/27/2012 23:59:59 CLS Outpatient [id number] 08/25/2012 13:19:00 08/25/2012 23:59:59 CLS Outpatient FREDA NAVARRO, JONATHAN Beckham [facility] RAD LOW BACK PAIN [id number] 11/26/2017 08:52:00 Document Registration [id number] 11/24/2017 09:45:00 Document Registration [id number] 01/03/2016 09:24:00 Document Registration [id number] 01/03/2016 09:24:00 Document Registration [id number] 01/03/2016 09:24:00 Document Registration [id number] 07/06/2014 11:20:00 Document Registration [id number] 06/28/2013 13:00:00 Document Registration [id number] 09/08/2011 10:55:00 Document Registration [id number] 08/01/2011 09:00:00 Document Registration [id number] 05/02/2011 08:45:00 Document Registration [id number] 08/16/2010 08:50:00 Document Registration [id number] 08/31/2007 09:19:00 Document Registration
--- NOTE | 2017-12-08 18:55 | Diagnostic Imaging Report ---
PROCEDURE: CT abdomen and pelvis with contrast. TECHNIQUE: Multiple contiguous axial images were obtained through the abdomen and pelvis after administration of intravenous contrast. INDICATION: Abdominal pain. Comparison is made with prior examination from 10/08/2017. FINDINGS: The lung bases are clear. There are skin ophelia seen down the midline of the abdomen. There are multiple small pockets of free intraperitoneal air, presumably postsurgical. The liver is normal in size and without focal lesions. There is no biliary ductal dilatation. The gallbladder is surgically absent. Spleen is normal. Pancreas and adrenal glands are unremarkable. There is a cyst in the right kidney. Aorta is nonaneurysmal. There are dilated loops of small bowel. There is diverticular disease. There is no pelvic mass or adenopathy. Bladder is unremarkable. There are mild degenerative changes in the spine. There is an abnormal fluid collection in the right anterior abdomen suspect for abscess. This measures approximately 14 x 7.8 x 16 cm. IMPRESSION: 1. Large abscess in the right lower anterior abdominal cavity. Additionally, there are multiple small pockets of free intraperitoneal air presumably postsurgical. Recommend clinical correlation. 2. Dilated loops of small bowel. This is suspect for at least ileus if not early small bowel obstruction. 3. Right renal cyst. 4. Diverticular disease. Dictated by: Dictated on workstation # [id number]
[2017-12-08 20:36] VITALS: BP 126/61
[2017-12-08 20:39] LABS: HEMOGLOBIN 11.8 G/DL (11.5-16.0); MEAN PLATELET VOLUME 8.7 FL (7.4-10.4); RED BLOOD COUNT 4.14 10^6/uL (4.35-5.85); RED CELL DISTRIBUTION WIDTH 14.7 % (10.0-14.5); WHITE BLOOD COUNT 18.1 10^3/uL (4.3-11.0)
[2017-12-09] VITALS (11 sets, daily range): BP systolic 110–143; BP diastolic 33–84
[2017-12-09] MEDS: LACTATED RINGERS 1,000 ML IV SCH ×4 (02:20→21:47)
[2017-12-09] MEDS: ONDANSETRON 4 MG/2 ML (SDV) Z0FRAN IV PRN ×2 (03:16→07:50)
[2017-12-09] MEDS: fentaNYL INJECTION 100 MCG/2 ML AMP IV PRN ×5 (03:20→20:16)
[2017-12-09] MEDS: CIPROFLOXACIN 400 MG/D5W 200 ML (PRE-MIX) IV SCH ×2 (04:55→18:23)
[2017-12-09] MEDS: oxyCODONE/APAP 5/325MG (PERCOCET 5) TABLET PO PRN (05:04)
[2017-12-09 07:35] LABS: HEMOGLOBIN 10.7 G/DL (11.5-16.0); MEAN PLATELET VOLUME 8.9 FL (7.4-10.4); RED BLOOD COUNT 3.75 10^6/uL (4.35-5.85); RED CELL DISTRIBUTION WIDTH 14.6 % (10.0-14.5); WHITE BLOOD COUNT 15.8 10^3/uL (4.3-11.0)
[2017-12-09 07:50] LABS: BUN/CREATININE RATIO 21; CALCIUM 8.6 MG/DL (8.5-10.1); CARBON DIOXIDE 24 MMOL/L (21-32); CHLORIDE 99 MMOL/L (98-107); CREATININE SERUM 0.62 MG/DL (0.60-1.30); GFR ESTIMATED > 60; GLUCOSE 99 MG/DL (70-105); POTASSIUM 3.7 MMOL/L (3.6-5.0); SODIUM 132 MMOL/L (135-145)
[2017-12-09] MEDS: PANTOPRAZOLE 40 MG (PROTONIX) VIAL IV SCH (07:51)
[2017-12-09 08:26] LABS: INR 1.2 (0.8-1.4); PROTHROMBIN TIME PATIENT 15.2 SEC (12.2-14.7)
[2017-12-09] MEDS ORDERED: NS IV 1000 ML 1,000 ML IV STA (11:49)
[2017-12-09] MEDS ORDERED: MIDAZOLAM 2 MG/2 ML (VERSED) VIAL ONE (11:52)
[2017-12-09] MEDS ORDERED: NS IV 1000 ML 1,000 ML ONE (11:52)
[2017-12-09] MEDS ORDERED: LIDOCAINE 1% INJ 20 ML 20 ML VIAL ONE (11:52)
[2017-12-09] MEDS ORDERED: LIDOCAINE 1% INJ 20 ML 20 ML VIAL INJ ONE (12:00)
[2017-12-09] MEDS: MIDAZOLAM 2 MG/2 ML (VERSED) VIAL IVP PRN ×2 (12:39→12:43)
[2017-12-09] MEDS: fentaNYL INJECTION 100 MCG/2 ML AMP IVP PRN ×2 (12:43→12:45)
--- NOTE | 2017-12-09 13:38 | Pre-Op Note & Conscious Sedat ---
Pre-Operative Progress Note H&P Reviewed The H&P was reviewed, patient examined and no changes noted. Date H&P Reviewed: Dec 09, 2017 Time H&P Reviewed: 11:00 Pre-Op Diagnosis: Abdominal abscess Conscious Sedation Pre-Proced Time Reviewed: 11:00 ASA Class: 2 Airway Mallampati Classification: (tribal appropriate class) I. II. III, IV Lungs Heart ASA score ASA 1: a normal healthy patient ASA 2: a patient with a mild systemic disease (mid diabetes, controlled hypertension, obesity ASA 3: a patient with a severe systemic disease that limits activity (angina , COPD, prior Myocardial infarction) ASA 4: a patient with an incapacitating disease that is a constant threat to life (CHF, renal failure) ASA 5: a moribund patient not expected to survive 24 hrs. (ruptured aneurysm) ASA 6: a declared brain patient whose organs are being harvested. For emergent operations, add the letter E after the classification Grade 1 Sedation Plan: Analgesia, Amnesia, Plan communicated to team members, Discussed options with patient/fam, Discussed risks with patient/fam Note The patient is an appropriate candidate to undergo the planned procedure, sedation, and anesthesia. The patient immediately re-assessed prior to indication. MORGAN WANG MD Dec 09, 2017 13:38
--- NOTE | 2017-12-09 13:57 | Diagnostic Imaging Report ---
Indication: Abdominal abscess. Patient presents for CT-guided drainage. Patient was brought to the CT suite placed on table in supine position. Axial imaging through the abdomen was performed to evaluate appropriate entry site. The procedure was performed utilizing conscious sedation with radiology nursing and constant patient monitoring. Patient was administered a total of 1 mg of Versed intravenously as well as 50 mCi of fentanyl intravenously. Right abdomen was prepped and draped in usual sterile fashion. A small amount of 1% lidocaine was utilized for local anesthesia. A Yueh needle was advanced into the gas and fluid collection in the right lower quadrant. This was exchanged over a 035 guidewire. The tract was dilated with 6, 8 and 10 Mosotho dilators. A 10 Mosotho all-purpose pigtail drain was then advanced over the guidewire and with loop formed in the right lower quadrant collection. Approximately 50 cc of dark red fluid was removed. The catheter was affixed to the patient's skin and placed to a obed drain. A total procedure time is 13 minutes. Patient tolerated the procedure well and left the department in stable condition. Impression: Successful CT-guided abdominal drain placement in the right lower quadrant, as described utilizing conscious sedation. Dictated by: Dictated on workstation # [id number]
[2017-12-09] MEDS: PROMETHAZINE INJ 25 MG/ML (PHENERGAN) AMP IV PRN (14:07)
--- NOTE | 2017-12-09 14:44 | Progress Note (SOAP) ---
Subjective Date Seen by Provider: Dec 09, 2017 Time Seen by Provider: 14:30 Subjective/Events-last exam doing better today. s/p perc drain placement, preliminarily appears to be old blood. still has pain but controlled. no fever/chills. Objective Exam Vital Signs Date Time Temp Pulse Resp B/P (MAP) Pulse Ox O2 Delivery O2 Flow Rate FiO2 12/09/17 12:50 76 18 113/78 99 Nasal Cannula 3.00 12/09/17 12:45 78 18 115/80 99 Nasal Cannula 3.00 12/09/17 12:40 76 18 110/33 99 Nasal Cannula 3.00 12/09/17 12:35 79 18 111/33 99 Nasal Cannula 3.00 12/09/17 12:15 71 18 115/84 94 Nasal Cannula 3.00 12/09/17 12:00 97.4 78 18 118/59 (78) 95 Room Air 12/09/17 08:23 Room Air 12/09/17 08:00 98.4 83 18 118/56 (76) 99 Room Air 12/09/17 04:38 97.9 82 16 111/54 (73) 94 Room Air 12/09/17 00:07 97.7 100 17 110/56 (74) 95 Room Air 12/08/17 20:55 Room Air 12/08/17 20:36 99.3 91 16 126/61 (82) 94 Room Air 12/08/17 18:35 99.1 12/08/17 16:00 99.1 109 20 129/59 (82) 96 Room Air 12/08/17 15:37 Room Air I & O 12/09/17 07:00 Intake Total 2500 ml Output Total 500 ml Balance 2000 ml Capillary Refill : General Appearance: No Apparent Distress HEENT: PERRL/EOMI Neck: Full Range of Motion Respiratory: Chest Non Tender, Normal Breath Sounds Cardiovascular: Regular Rate, Rhythm Extremity: Normal Capillary Refill Neurologic/Psychiatric: Alert, Oriented x3 Skin: Normal Color Lymphatic: No Adenopathy Results Lab Laboratory Tests 12/08/17 16:07: Blood Urea Nitrogen 16, Creatinine 0.73, Estimat Glomerular Filtration Rate > 60 , BUN/Creatinine Ratio 22 12/08/17 20:30: White Blood Count 18.1H, Red Blood Count 4.14L, Hemoglobin 11.8, Hematocrit 35, Mean Corpuscular Volume 84, Mean Corpuscular Hemoglobin 29, Mean Corpuscular Hemoglobin Concent 34, Red Cell Distribution Width 14.7H, Platelet Count 445H, Mean Platelet Volume 8.7 12/09/17 07:25: Blood Urea Nitrogen 13, Creatinine 0.62, Estimat Glomerular Filtration Rate > 60 , BUN/Creatinine Ratio 21, White Blood Count 15.8H, Red Blood Count 3.75L, Hemoglobin 10.7L, Hematocrit 32L, Mean Corpuscular Volume 84, Mean Corpuscular Hemoglobin 29, Mean Corpuscular Hemoglobin Concent 34, Red Cell Distribution Width 14.6H, Platelet Count 412H, Mean Platelet Volume 8.9, Prothrombin Time 15.2H, INR Comment 1.2, Activated Partial Thromboplast Time 44H, Sodium Level 132L, Potassium Level 3.7, Chloride Level 99, Carbon Dioxide Level 24, Anion Gap 9, Glucose Level 99, Calcium Level 8.6 Assessment/Plan Assessment/Plan Assess & Plan/Chief Complaint s/p laparoscopic RAYMOND and ventral abd inc hernia repair with mesh with intraperitoneal fluid collection and abd pain s/p percutaneous drain placement. await C&S, continue Abx for now. question of PSBO vs. ileus, will proceed with Upper GI and SBFT tomorrow. Clinical Quality Measures DVT/VTE Risk/Contraindication: Risk Factor Score Per Nursin RFS Level Per Nursing on Admit: 4+=Very High WAYNE AVILA MD Dec 09, 2017 2:44 pm
[2017-12-09] MEDS ORDERED: ACETAMINOPHEN 325 MG TABLET PO PRN (16:00)
[2017-12-09] MEDS: metroNIDAZOLE 500 MG/100 ML IVPB (PRE-MIX) IV SCH (17:18)
[2017-12-09] MEDS: ZOLPIDEM 5 MG (AMBIEN) TAB PO PRN (21:22)
[2017-12-10 00:06] VITALS: BP 120/66
[2017-12-10] MEDS: fentaNYL INJECTION 100 MCG/2 ML AMP IV PRN ×2 (02:56→06:54)
[2017-12-10 04:08] VITALS: BP 116/65
[2017-12-10] MEDS: CIPROFLOXACIN 400 MG/D5W 200 ML (PRE-MIX) IV SCH (04:24)
[2017-12-10] MEDS: LACTATED RINGERS 1,000 ML IV SCH ×4 (05:32→22:17)
[2017-12-10] MEDS: metroNIDAZOLE 500 MG/100 ML IVPB (PRE-MIX) IV SCH (05:35)
[2017-12-10 08:00] VITALS: BP 125/64
[2017-12-10] MEDS: PANTOPRAZOLE 40 MG (PROTONIX) VIAL IV SCH (08:25)
[2017-12-10 09:00] LABS: HEMOGLOBIN 9.9 G/DL (11.5-16.0); MEAN PLATELET VOLUME 8.7 FL (7.4-10.4); RED BLOOD COUNT 3.42 10^6/uL (4.35-5.85); RED CELL DISTRIBUTION WIDTH 14.6 % (10.0-14.5); WHITE BLOOD COUNT 16.8 10^3/uL (4.3-11.0)
[2017-12-10] MEDS ORDERED: POLYETHYLENE GLYCOL 17 GM (MIRALAX) PACK PO PRN (09:30)
[2017-12-10] MEDS ORDERED: PIPERACILLIN SODIUM/TAZOBACTAM 4.5 GM in D5W 100 ML IVPB 100 ML IV NR (10:00)
--- NOTE | 2017-12-10 10:04 | Consultation-Hospitalist ---
HPI History of Present Illness: HPI/Chief Complaint Pt is a 67yoCF with a PMH of HTN and recent hernia repair who presented to the ER with CC of abdominal pain and was found to have a fluid collection near her surgical site. She was admitted for concerns about abscess. She underwent percutaneous drainage and cultures have been sent. I am consulted for medical management. She has no complaints at this time other than feeling "gassy." Her last BM was 10 days ago and she has not passed any flatus. Source: patient Exam Limitations: no limitations Date Seen 12/10/17 Attending Physician Leoncio Lopez MD PCP Zack Santos MD Referring Physician Date of Admission Dec 08, 2017 at 15:15 Home Medications & Allergies Home Medications Reviewed patient Home Medication Reconciliation performed by pharmacy medication reconciliations radiation control technician and/or nursing. Patients Allergies have been reviewed. Allergies Allergies Coded Allergies tetracycline (Unverified Allergy, Mild, 11/24/17) Past Xlmgeyf-Xxhvrc-Tybshi Hx Past Med/Social Hx: Reviewed Nursing Past Med/Soc Hx Patient Social History Alcohol Use: Denies Use Recreational Drug Use: No Smoking Status: Never a Smoker Physical Abuse Screen: No Sexual Abuse: No Recent Foreign Travel: No Contact w/other who traveled: No Recent Hopitalizations: No Recent Infectious Disease Expo: No Immunizations Up To Date Tetanus Booster (TDap): Unknown Date of Pneumonia Vaccine: Dec 24, 2010 Date of Influenza Vaccine: Feb 02, 2017 Seasonal Allergies Seasonal Allergies: Yes Past Medical History Surgeries: Gallbladder, Hysterectomy Currently Using CPAP: No Currently Using BIPAP: No Cardiac: High Cholesterol, Hypertension Neurological: Stroke Reproductive: No Sexually Transmitted Disease: No HIV/AIDS: No Hysterectomy Genitourinary: Kidney Infection, Bladder Infection, Kidney Stones, UTI-Chronic Gastrointestinal: Gastroesophageal Reflux, Chronic Constipation Musculoskeletal: Arthritis, Chronic Back Pain Loss of Vision: Denies Hearing Impairment: Denies Psychosocial: Anxiety, Depression History of Blood Disorders: No Adverse Reaction to Blood Ramos: No (N/A) Family History Reviewed Nursing Family Hx No Pertinent Family Hx Review of Systems Constitutional: no symptoms reported EENTM: no symptoms reported Respiratory: no symptoms reported Cardiovascular: no symptoms reported Gastrointestinal: see HPI, abdominal pain, constipation, loss of appetite Musculoskeletal: no symptoms reported Skin: no symptoms reported Psychiatric/Neurological: No Symptoms Reported Physical Exam Physical Exam Vital Signs Vital Signs - First Documented 12/08/17 12/08/1718 15:37 16:00 12:15 Temp 99.1 Pulse 109 Resp 20 B/P (MAP) 129/59 (82) Pulse Ox 96 O2 Delivery Room Air O2 Flow Rate 3.00 Capillary Refill : Height, Weight, BMI Height: 5'5.00" Weight: 184lbs. 5.0oz. 83.408261oc; 30.7 BMI Method: General Appearance: No Apparent Distress, Chronically ill Respiratory: Lungs Clear, No Respiratory Distress Cardiovascular: No Murmur, Tachycardia Gastrointestinal: Abnormal Bowel Sounds, Distended; No Guarding; Tenderness ( mild) Extremity: No Calf Tenderness, No Pedal Edema Neurologic/Psychiatric: Alert, Oriented x3 Results Results/Procedures Labs Laboratory Tests 12/08/17 16:07 12/08/17 20:30 12/09/17 07:25 12/10/17 08:45 Patient resulted labs reviewed. Imaging: Reviewed Imaging Report Assessment/Plan Assessment and Plan Assess & Plan/Chief Complaint Postoperative fluid collection and ileus Diagnosis/Problems Diagnosis/Problems (1) S/P hernia repair Assessment & Plan: Management per Dr oLpez Ct guided aspiration of fluid collection- cultures pending On Zosyn for concern for abscess (2) Ileus, postoperative Assessment & Plan: Started on Miralax (3) HTN (hypertension) Status: Chronic Assessment & Plan: Hold home antihypertensives as BP well controlled Qualifiers: Hypertension type: essential hypertension Qualified Codes: I10 - Essential (primary) hypertension (4) Anxiety Status: Chronic Assessment & Plan: On benzos at home but doing well without, will hold Clinical Quality Measures DVT/VTE Risk/Contraindication: Risk Factor Score Per Nursin RFS Level Per Nursing on Admit: 4+=Very High SALONI HOWARD MD Dec 10, 2017 10:04 am
[2017-12-10] MEDS: POLYETHYLENE GLYCOL 17 GM (MIRALAX) PACK PO SCH ×2 (10:05→21:40)
[2017-12-10] MEDS: oxyCODONE/APAP 5/325MG (PERCOCET 5) TABLET PO PRN ×3 (10:11→21:40)
--- NOTE | 2017-12-10 10:20 | Diagnostic Imaging Report ---
INDICATION: Epigastric pain and dehydration Portable chest 9:51 AM Heart size and pulmonary vascularity are normal. Lungs are clear. There are no effusions or pneumothoraces. IMPRESSION: Negative chest Dictated by: Dictated on workstation # [id number]
[2017-12-10 12:00] VITALS: BP 122/60
[2017-12-10] MEDS ORDERED: METOCLOPRAMIDE INJ 10 MG/2 ML (REGLAN) IVP SCH (12:00)
--- NOTE | 2017-12-10 15:51 | Progress Note (SOAP) ---
Subjective Date Seen by Provider: Dec 10, 2017 Time Seen by Provider: 15:30 Subjective/Events-last exam doing better today. still states no BM. tolerating clears. no abdominal distention, minimal pain. Objective Exam Vital Signs Date Time Temp Pulse Resp B/P (MAP) Pulse Ox O2 Delivery O2 Flow Rate FiO2 12/10/17 12:00 98.8 108 18 122/60 (80) 94 Room Air 12/10/17 08:00 98.4 104 16 125/64 (84) 95 Room Air 12/10/17 04:08 98.8 103 17 116/65 (82) 93 Room Air 12/10/17 00:06 97.5 105 17 120/66 (84) 96 Room Air 12/09/17 20:30 100.2 12/09/17 20:00 Room Air 12/09/17 19:00 98.8 102 18 134/63 (86) 94 Room Air 12/09/17 19:00 99.6 12/09/17 16:26 102.3 113 18 143/66 (91) 96 Room Air I & O 12/10/17 06:59 Intake Total 2935 ml Output Total 1025 ml Balance 1910 ml Capillary Refill : General Appearance: No Apparent Distress HEENT: PERRL/EOMI Neck: Full Range of Motion Respiratory: Chest Non Tender, Normal Breath Sounds Cardiovascular: Regular Rate, Rhythm Gastrointestinal: normal bowel sounds, soft, other (no recurrent hernia) Extremity: Normal Capillary Refill Neurologic/Psychiatric: Alert, Oriented x3 Skin: Normal Color Lymphatic: No Adenopathy Results Lab Laboratory Tests 12/10/17 08:45: White Blood Count 16.8H, Red Blood Count 3.42L, Hemoglobin 9.9L, Hematocrit 29L , Mean Corpuscular Volume 85, Mean Corpuscular Hemoglobin 29, Mean Corpuscular Hemoglobin Concent 34, Red Cell Distribution Width 14.6H, Platelet Count 389, Mean Platelet Volume 8.7 Microbiology 12/09/17 Gram Stain - Final, Resulted 12/09/17 Anaerobic Culture, Resulted Pending 12/09/17 Surgical Culture - Preliminary, Resulted Escherichia coli Assessment/Plan Assessment/Plan Assess & Plan/Chief Complaint s/p laparoscopic RAYMOND and ventral abd inc hernia repair with mesh with intraperitoneal fluid collection and abd pain s/p percutaneous drain placement. await C&S, continue Abx for now. question of PSBO vs. ileus. clinically does not appear to be obstructed. will start miralax for constipation and slow GI motility. states possible previous hx tardive dyskinesia so will hold off on reglan. suspect bile acid reflux based on previous EGD and nature of previous bypass surgery. will start aluminum containing antacids. Clinical Quality Measures DVT/VTE Risk/Contraindication: Risk Factor Score Per Nursin RFS Level Per Nursing on Admit: 4+=Very High WAYNE AVILA MD Dec 10, 2017 3:51 pm
[2017-12-10 16:10] VITALS: BP 113/56
[2017-12-10] MEDS: SIMETHICONE 80 MG (MYLICON) CHEW PO SCH ×2 (17:14→21:40)
[2017-12-10] MEDS: PIPERACILLIN/TAZO 4.5 GM/D5W 100 ML IV SCH ×2 (17:14)
[2017-12-10 20:25] VITALS: BP 113/55
[2017-12-10] MEDS ORDERED: ERYTHROMYCIN PO SCH (21:00)
[2017-12-10] MEDS: PROMETHAZINE INJ 25 MG/ML (PHENERGAN) AMP IV PRN (21:39)
[2017-12-11 00:10] VITALS: BP 123/63
[2017-12-11] MEDS: PIPERACILLIN/TAZO 4.5 GM/D5W 100 ML IV SCH ×6 (00:21→16:34)
[2017-12-11 04:05] VITALS: BP 125/61
[2017-12-11] MEDS: SIMETHICONE 80 MG (MYLICON) CHEW PO SCH ×4 (06:02→20:26)
[2017-12-11] MEDS: LACTATED RINGERS 1,000 ML IV SCH ×2 (06:02→14:48)
[2017-12-11 06:48] LABS: BILIRUBIN,URINE NEGATIVE (NEGATIVE); CLARITY,URINE CLEAR; COLOR,URINE YELLOW; GLUCOSE, URINE (UA) NEGATIVE (NEGATIVE); KETONES,URINE NEGATIVE (NEGATIVE); LEUKOCYTE ESTERASE ,URINE 3+ (NEGATIVE); NITRITE,URINE NEGATIVE (NEGATIVE); PH,URINE 8 (5-9); PROTEIN,URINE NEGATIVE (NEGATIVE); UROBILINOGEN,URINE NORMAL (NORMAL)
[2017-12-11 06:57] LABS: BACTERIA,URINE FEW /HPF; RENAL EPITHELIAL CELLS,URINE 0-2 /HPF; SQUAMOUS EPITHELIAL CELL,UR 0-2 /HPF
[2017-12-11 08:12] VITALS: BP 129/58
--- NOTE | 2017-12-11 08:35 | Progress Note-Hospitalist ---
Subjective HPI/CC On Admission Date Seen by Provider: Dec 11, 2017 Time Seen by Provider: 08:30 Pt is a 67yoCF with a PMH of HTN and recent hernia repair who presented to the ER with CC of abdominal pain and was found to have a fluid collection near her surgical site. She was admitted for concerns about abscess. She underwent percutaneous drainage and cultures have been sent. I am consulted for medical management. She has no complaints at this time other than feeling "gassy." Her last BM was 10 days ago and she has not passed any flatus. Subjective/Events-last exam Pt still complains of abdominal discomfort. She has passed no flatus and has not had a BM. She has no other complaints. Objective Exam Vital Signs Vital Signs Date Time Temp Pulse Resp B/P (MAP) Pulse Ox O2 Delivery O2 Flow Rate FiO2 12/11/17 08:12 100.4 104 20 129/58 (81) 93 Room Air 12/09/17 12:50 3.00 Capillary Refill : Less Than 3 Seconds General Appearance: No Apparent Distress, WD/WN Respiratory: Lungs Clear, No Respiratory Distress Cardiovascular: Regular Rate, Rhythm, No Murmur Gastrointestinal: Abnormal Bowel Sounds (quiet); No Guarding, No Tenderness Neurologic/Psychiatric: Alert, Oriented x3 Results/Procedures Lab Laboratory Tests 12/10/17 08:45 Patient resulted labs reviewed. Imaging: Reviewed Imaging Report Assessment/Plan Assessment and Plan Assess & Plan/Chief Complaint Postoperative fluid collection and ileus Diagnosis/Problems Diagnosis/Problems (1) S/P hernia repair Assessment & Plan: Management per Dr Lopez Ct guided aspiration of fluid collection- cultures show E coli, sensitivities pending On Zosyn for concern for abscess until sensitivities back (2) Ileus, postoperative Assessment & Plan: Started on Miralax and erythromycin (3) HTN (hypertension) Status: Chronic Assessment & Plan: Hold home antihypertensives as BP well controlled Qualifiers: Hypertension type: essential hypertension Qualified Codes: I10 - Essential (primary) hypertension (4) Anxiety Status: Chronic Assessment & Plan: On benzos at home but doing well without, will hold Clinical Quality Measures DVT/VTE Risk/Contraindication: Risk Factor Score Per Nursin RFS Level Per Nursing on Admit: 4+=Very High SALONI HOWARD MD Dec 11, 2017 8:35 am
[2017-12-11] MEDS: POLYETHYLENE GLYCOL 17 GM (MIRALAX) PACK PO SCH ×2 (09:12→20:26)
[2017-12-11] MEDS: oxyCODONE/APAP 5/325MG (PERCOCET 5) TABLET PO PRN ×2 (09:12→22:16)
[2017-12-11] MEDS: PANTOPRAZOLE 40 MG (PROTONIX) VIAL IV SCH (09:12)
[2017-12-11] MEDS: ERYTHROMYCIN BASE 250 MG TAB/CAP (NON-FORMULARY) PO SCH ×3 (10:58→22:16)
[2017-12-11 10:59] LABS: HEMOGLOBIN 9.6 G/DL (11.5-16.0); MEAN PLATELET VOLUME 9.1 FL (7.4-10.4); RED BLOOD COUNT 3.29 10^6/uL (4.35-5.85); RED CELL DISTRIBUTION WIDTH 14.3 % (10.0-14.5); WHITE BLOOD COUNT 13.5 10^3/uL (4.3-11.0)
[2017-12-11] MEDS: ALUMINUM HYDROXIDE 320 MG/5 ML PO SCH ×2 (11:31→16:34)
--- NOTE | 2017-12-11 12:44 | Progress Note (SOAP) ---
Subjective Date Seen by Provider: Dec 11, 2017 Time Seen by Provider: 12:00 Subjective/Events-last exam doing better. had 2 large BM's. tolerating clears. still states some abdominal pain however patient does not appear to be in distress. patient weak. Objective Exam Vital Signs Date Time Temp Pulse Resp B/P (MAP) Pulse Ox O2 Delivery O2 Flow Rate FiO2 12/11/17 08:12 100.4 104 20 129/58 (81) 93 Room Air 12/11/17 04:05 98.1 106 20 125/61 (82) 95 Room Air 12/11/17 00:10 98.5 103 22 123/63 (83) 92 Room Air 12/10/17 20:25 97.8 100 20 113/55 (74) 91 Room Air 12/10/17 20:00 Room Air 12/10/17 16:10 97.9 91 16 113/56 (75) 94 Room Air I & O 12/11/17 07:00 Intake Total 4260 ml Output Total 530 ml Balance 3730 ml Capillary Refill : Less Than 3 Seconds General Appearance: No Apparent Distress HEENT: PERRL/EOMI Neck: Full Range of Motion Respiratory: Chest Non Tender, Lungs Clear Cardiovascular: Regular Rate, Rhythm Gastrointestinal: soft, tenderness, other (drain purely SS, no purulence.) Extremity: Normal Capillary Refill Neurologic/Psychiatric: Alert, Oriented x3 Skin: Normal Color Lymphatic: No Adenopathy Results Lab Laboratory Tests 12/11/17 06:42: Urine Color YELLOW, Urine Clarity CLEAR, Urine pH 8, Urine Specific [place] 1.015L, Urine Protein NEGATIVE, Urine Glucose (UA) NEGATIVE, Urine Ketones NEGATIVE, Urine Nitrite NEGATIVE, Urine Bilirubin NEGATIVE, Urine Urobilinogen NORMAL, Urine Leukocyte Esterase 3+H, Urine RBC (Auto) 1+H, Urine RBC NONE, Urine WBC 10-25H, Urine Squamous Epithelial Cells 0-2, Urine Renal Epithelial Cells 0-2, Urine Crystals NONE, Urine Bacteria FEWH, Urine Casts NONE, Urine Mucus NEGATIVE, Urine Culture Indicated YES 12/11/17 10:50: White Blood Count 13.5H, Red Blood Count 3.29L, Hemoglobin 9.6L, Hematocrit 28L , Mean Corpuscular Volume 86, Mean Corpuscular Hemoglobin 29, Mean Corpuscular Hemoglobin Concent 34, Red Cell Distribution Width 14.3, Platelet Count 399, Mean Platelet Volume 9.1 Microbiology 12/09/17 Blood Culture - Preliminary, Resulted No growth 12/09/17 Gram Stain - Final, Resulted 12/09/17 Anaerobic Culture - Preliminary, Resulted No anaerobes isolated 12/09/17 Surgical Culture - Final, Resulted Escherichia coli Assessment/Plan Assessment/Plan Assess & Plan/Chief Complaint s/p laparoscopic RAYMOND and ventral abd inc hernia repair with mesh with intraperitoneal fluid collection and abd pain s/p percutaneous drain placement. await C&S, continue Abx for now. question of PSBO vs. ileus. clinically does not appear to be obstructed. will start miralax for constipation and slow GI motility. states possible previous hx tardive dyskinesia so will hold off on reglan. suspect bile acid reflux based on previous EGD and nature of previous bypass surgery. will start aluminum containing antacids. doing better now and had 2 large BM's. advance to regular diet. patient states weak and after talking with in confidence states that he cannot take care of her at home. will consult SS for placement. Clinical Quality Measures DVT/VTE Risk/Contraindication: Risk Factor Score Per Nursin RFS Level Per Nursing on Admit: 4+=Very High WAYNE AVILA MD Dec 11, 2017 12:44 pm
[2017-12-11 16:10] VITALS: BP 134/59
[2017-12-11] MEDS: ZOLPIDEM 5 MG (AMBIEN) TAB PO PRN (20:26)
[2017-12-12] VITALS: BP 106/57
[2017-12-12] MEDS: PIPERACILLIN/TAZO 4.5 GM/D5W 100 ML IV SCH ×4 (00:40→08:03)
[2017-12-12] MEDS: LACTATED RINGERS 1,000 ML IV SCH ×2 (03:59→18:25)
[2017-12-12] MEDS: SIMETHICONE 80 MG (MYLICON) CHEW PO SCH ×4 (05:19→19:51)
[2017-12-12] MEDS: oxyCODONE/APAP 5/325MG (PERCOCET 5) TABLET PO PRN ×3 (05:19→19:50)
[2017-12-12] MEDS: ALUMINUM HYDROXIDE 320 MG/5 ML PO SCH ×3 (05:19→18:23)
[2017-12-12 07:43] VITALS: BP 109/57
--- NOTE | 2017-12-12 08:21 | Progress Note-Hospitalist ---
Subjective HPI/CC On Admission Date Seen by Provider: Dec 12, 2017 Time Seen by Provider: 08:17 Pt is a 67yoCF with a PMH of HTN and recent hernia repair who presented to the ER with CC of abdominal pain and was found to have a fluid collection near her surgical site. She was admitted for concerns about abscess. She underwent percutaneous drainage and cultures have been sent. I am consulted for medical management. She has no complaints at this time other than feeling "gassy." Her last BM was 10 days ago and she has not passed any flatus. Subjective/Events-last exam Pt reports feeling poorly but then immediately asks to be discharged. She reports she has passed both flatus and a BM. She is eating breakfast with no issue. Objective Exam Vital Signs Vital Signs Date Time Temp Pulse Resp B/P (MAP) Pulse Ox O2 Delivery O2 Flow Rate FiO2 12/12/17 07:43 97.1 75 22 109/57 (74) 95 Room Air 12/09/17 12:50 3.00 Capillary Refill : Less Than 3 Seconds General Appearance: No Apparent Distress, WD/WN Respiratory: Lungs Clear, No Respiratory Distress Cardiovascular: Regular Rate, Rhythm, No Murmur Gastrointestinal: Normal Bowel Sounds, Non Tender, Soft Results/Procedures Lab Laboratory Tests 12/11/17 10:50 Patient resulted labs reviewed. Imaging: Reviewed Imaging Report Assessment/Plan Assessment and Plan Assess & Plan/Chief Complaint Postoperative fluid collection and ileus Diagnosis/Problems Diagnosis/Problems (1) S/P hernia repair Assessment & Plan: Management per Dr Lopez Ct guided aspiration of fluid collection- cultures show E coli On Zosyn for concern for abscess Sensitive to Zosyn- can deescalate to Augmentin when ok with surgery in preparation for DC (2) Ileus, postoperative Status: Resolved Assessment & Plan: Started on Miralax and erythromycin Passing BM and flatus (3) HTN (hypertension) Status: Chronic Assessment & Plan: Hold home antihypertensives as BP well controlled Qualifiers: Hypertension type: essential hypertension Qualified Codes: I10 - Essential (primary) hypertension (4) Anxiety Status: Chronic Assessment & Plan: On benzos at home but doing well without, will hold (5) Discharge planning issues Assessment & Plan: unable to care for patient at home Will likely need IRU or SNF placement for recovery PT/OT ordered [employer] Chief Creative Officer consulted, appreciate assistance Clinical Quality Measures DVT/VTE Risk/Contraindication: Risk Factor Score Per Nursin RFS Level Per Nursing on Admit: 4+=Very High SALONI HOWARD MD Dec 12, 2017 8:21 am
[2017-12-12] MEDS: PANTOPRAZOLE 40 MG (PROTONIX) VIAL IV SCH (09:09)
[2017-12-12] MEDS: POLYETHYLENE GLYCOL 17 GM (MIRALAX) PACK PO SCH ×2 (09:09→20:36)
[2017-12-12] MEDS: ERYTHROMYCIN BASE 250 MG TAB/CAP (NON-FORMULARY) PO SCH ×3 (09:09→22:24)
--- NOTE | 2017-12-12 11:46 | Occupational Therapy Eval ---
OT Evaluation-General/PLF Medical Diagnosis Admission Date Dec 08, 2017 at 15:15 Medical Diagnosis: Hernia repair with drainage Onset Date: Dec 08, 2017 Therapy Diagnosis Therapy Diagnosis: Weakness Height/Weight Height (Feet): 5 Height (Inches): 5.00 Weight (Pounds): 184 Weight (Ounces): 5.0 Precautions Precautions/Isolations: Fall Prevention, Standard Precautions Safety Interventions: Bed Exit Alarm, Reorient-Attempt, Move Closer to Desk, Reorient-PRN Weight Bear Status Weight Bearing Restriction: Weight Bearing/Tolerated Referral Physician: Dr. 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 Current History Pt. had recent hernia repair with percutaneous drainage. Reviewed History: Yes Social History Home: Single Level Current Living Status: Significant Other Entry Into Home: Stairs With Railing Steps Into Home: 5 Pt. lives in trailer ADL-Prior Level of Function ADL PLOF Comments Pt. and S.O. state that she was independent previous to this illness. DME/Equipment: Tub/Shower DME/Equipment Comments Pt. uses a walker. OT Current Status Subjective Pt. is unable to state a pain level. However, keeps eyes closed during treatment and states that she is nauseated and weak. Pt. is somewhat difficult to understand as she does not answer all of questions. Significant other in room and is able to answer for her. Appearance Pt. in bed. Grimaces with movement but does not state pain level. Mental Status/Objective Patient Orientation: Unable to Assess Current Upper Extremity ROM WFL ADL-Treatment Functional [place] Measure 0=Not Assessed/NA 4=Minimal Assistance 1=Total Assistance 5=Supervision or Setup 2=Maximal Assistance 6=Modified [place] 3=Moderate Assistance 7=Complete IndependenceIRFPAI Quality Coding Scale 6 Independent with activity with or without an assistive device 5 Patient requires set up or clean up by helper. Patient completes activity by themselves 4 Supervision or touching assist (CGA). [place] provide cues , steadying assist 3 The helper provides less than half the effort to complete the activity 2 The helper provides more than half the effort to complete the activity 1 Dependent. The helper does all the effort to complete an activity 7 Patient refused to complete or attempt activity 9 The patient did not perform the activity before the current illness or injury 88 Not attempted due to Medical conditions or safety concerns Lower Body Dressing (FIM): 4 (Pt. able to reach feet to don socks sitting on side of bed, with CGA for steady balance.) Transfers (B, C, W/C) (FIM): 4 (SBA supine-sit. CGA sit-stand. SBA to transfer back to supine.) Other Treatments Pt. transfers to side of bed. Continues to keep eyes closed and very limited with answering questions. However, rosas follow cues. Pt. is encouraged to spongebathe while sitting on side of bed. Pt. states, "I just don't feel like it right now." Pt. is also encouraged to ambulate with this therapist. Pt. states, "I can't today." Pt. is encouraged to continue sitting on side of bed and take deep breathes. Pt. is able to sit approximately 10 minutes. Transfers back to bed and able to position self in bed. All needs are met at this time. Education OT Patient Education: Correct positioning, Progress toward Goal/Update tx plan , Purpose of tx/functional activities, Reviewed precautions, Rehab process, Transfer techniques Teaching Recipient: Patient, Significant Other Teaching Methods: Demonstration, Discussion Response to Teaching: Verbalize Understanding, Return Demonstration OT Short Term Goals Short Term Goals 1=Demonstrate adherence to instructed precautions during ADL tasks. 2=Patient will verbalize/demonstrate understanding of assistive devices/ modifications for ADL. 3=Patient will improve strength/tolerance for activity to enable patient to perform ADL's. 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 2=Patient will verbalize/demonstrate understanding of assistive devices/ modifications for ADL. 3=Patient will improve strength/tolerance for activity to enable patient to perform ADL's. OT Education/Plan Problem List/Assessment Assessment: Decreased Activ Tolerance, Decreased UE Strength, Dependent Transfers, Impaired Bed Mobility, Impaired Funct Balance, Impaired I ADL's, Impaired Self-Care Skills Discharge Recommendations Plan/Recommendations: Continue POC Therapy D/C Recommendations: Home w/ Family Support, Occupational Therapy Home Care Comment Will continue to monitor pt. to determine discharge equipment and location. Pt. is limited at this time significantly by nausea. Treatment Plan/Plan of Care Treatment,Training & Education: Yes Patient would benefit from OT for education, treatment and training to promote independence in ADL's, mobility, safety and/or upper extremity function for ADL' s. Plan of Care: ADL Retraining, Functional Mobility, UE Funct Exercise/Act Treatment Duration: Dec 19, 2017 Frequency: 5 times per week Estimated Hrs Per Day: .25 hour per day Agreement: Yes Rehab Potential: Good Time/GCodes Start Time: 11:05 Stop Time: 11:20 Total Time Billed (hr/min): 15 Billed Treatment Time 1, MARION BARKER OT Dec 12, 2017 11:46
--- NOTE | 2017-12-12 13:19 | Progress Note ---
Subjective Time Seen by Provider: 11:57 Subjective/Events-last exam Pt seen and examined, she is lying in bed and looks weak. States she has had flatus and BM and would like to go home, but admits to being weak. Her is with her and states she is not really eating very much. Abdominal pain is minimal and denies N/V. Review of Systems General: No Chills, No Night Sweats; Fatigue, Malaise, Appetite (decreased) Pulmonary: No Dyspnea, No Cough Cardiovascular: No: Chest Pain, Palpitations Gastrointestinal: Abdominal Pain (mild); No: Nausea, Vomiting Objective Exam Vital Signs Date Time Temp Pulse Resp B/P (MAP) Pulse Ox O2 Delivery O2 Flow Rate FiO2 12/12/17 11:04 97.1 12/12/17 08:00 Room Air 12/12/17 07:43 97.1 75 22 109/57 (74) 95 Room Air 12/12/17 00:00 100.4 87 21 106/57 (73) 95 Room Air 12/11/17 20:00 Room Air 12/11/17 16:10 100.3 99 20 134/59 (84) 91 Room Air I & O 12/12/17 07:00 Intake Total 660 ml Output Total 4 ml Balance 656 ml Capillary Refill : Less Than 3 Seconds General Appearance: No Apparent Distress, WD/WN, Other (pt looks pale and weak) HEENT: PERRL/EOMI; No Scleral Icterus (L), No Scleral Icterus (R) Neck: Non Tender, Supple Respiratory: Lungs Clear, No Accessory Muscle Use, No Respiratory Distress Cardiovascular: Regular Rate, Rhythm, No Murmur Gastrointestinal: soft, tenderness, other (drain purely SS, no purulence.) Extremity: Normal Capillary Refill, No Calf Tenderness, No Pedal Edema Neurologic/Psychiatric: Alert, Oriented x3 Results Lab Microbiology 12/09/17 Blood Culture - Preliminary, Resulted No growth 12/11/17 Urine Culture - Final, Complete NO GROWTH 12/09/17 Gram Stain - Final, Resulted 12/09/17 Anaerobic Culture - Preliminary, Resulted No anaerobes isolated 12/09/17 Surgical Culture - Final, Resulted Escherichia coli Assessment/Plan Assessment/Plan Assessment/Plan Anemia Hyponatremia Leukocytosis Ileus s/p laparoscopic RAYMOND and ventral abd inc hernia repair with mesh with intraperitoneal fluid collection and abd pain s/p percutaneous drain placement. I will repeat CBC and CMP, need to make sure leukocytosis is improving and she is no longer hyponatremic. Would hold off on free water just to be safe. Encouraged pt to increase PO, especially protein and ambulate. She needs to start gaining some strength back or she will never get better. Will start Ensure if not already on it. Clinical Quality Measures DVT/VTE Risk/Contraindication: Risk Factor Score Per Nursin RFS Level Per Nursing on Admit: 4+=Very High CHUCK SWENSON DO Dec 12, 2017 13:19
[2017-12-12 13:30] LABS: BASOPHILS % (AUTO) 0 % (0-10); EOSINOPHILS # (AUTO) 0.4 10^3/uL (0.0-0.3); EOSINOPHILS % (AUTO) 4 % (0-10); HEMATOCRIT 28 % (35-52); HEMOGLOBIN 9.3 G/DL (11.5-16.0); LYMPHOCYTES % (AUTO) 9 % (12-44); MEAN CORPUSCULAR HEMOGLOBIN 29 PG (25-34); MEAN CORPUSCULAR HGB CONC 33 G/DL (32-36); MEAN CORPUSCULAR VOLUME 87 FL (80-99); MEAN PLATELET VOLUME 8.5 FL (7.4-10.4); MONOCYTES # (AUTO) 0.8 X 10^3 (0.0-1.0); MONOCYTES % (AUTO) 7 % (0-12); NEUTROPHILS # (AUTO) 8.4 X 10^3 (1.8-7.8); NEUTROPHILS % (AUTO) 80 % (42-75); PLATELET COUNT 444 10^3/uL (130-400); RED BLOOD COUNT 3.24 10^6/uL (4.35-5.85); RED CELL DISTRIBUTION WIDTH 14.7 % (10.0-14.5); WHITE BLOOD COUNT 10.6 10^3/uL (4.3-11.0)
[2017-12-12 13:54] LABS: ALANINE AMINOTRANSFERASE < 6 U/L (0-55); ALBUMIN 2.6 GM/DL (3.2-4.5); ALKALINE PHOSPHATASE 59 U/L (40-136); BILIRUBIN,TOTAL 0.4 MG/DL (0.1-1.0); BUN/CREATININE RATIO 11; CALCIUM 8.4 MG/DL (8.5-10.1); CARBON DIOXIDE 29 MMOL/L (21-32); CHLORIDE 101 MMOL/L (98-107); CREATININE SERUM 0.57 MG/DL (0.60-1.30); GFR ESTIMATED > 60; GLUCOSE 123 MG/DL (70-105); POTASSIUM 3.1 MMOL/L (3.6-5.0); SODIUM 137 MMOL/L (135-145); TOTAL PROTEIN 5.5 GM/DL (6.4-8.2)
--- NOTE | 2017-12-12 14:44 | Physical Therapy Evaluation ---
PT Evaluation-General Medical Diagnosis Admission Date Dec 08, 2017 at 15:15 Medical Diagnosis: Hernia repair with drainage Onset Date: Dec 08, 2017 Therapy Diagnosis Therapy Diagnosis: debility Height/Weight Height (Feet): 5 Height (Inches): 5.00 Weight (Pounds): 184 Weight (Ounces): 5.0 Precautions Precautions/Isolations: Fall Prevention, Standard Precautions Weight Bear Status Right Lower Extremity: Right Weight Bearing/Tolerated Left Lower Extremity: Left Weight Bearing/Tolerated Referral Physician: Dr. Mccallum Reason for Referral: Evaluation/Treatment Medical History Pertinent Medical History: CAD, GERD, HTN Additional Medical History depression, hyperlipidemia, nephrolithiasis, chronic LBP, short term memory loss , morbid obesity, Timoteo shunt Current History Recent hernia repair who presented to the ER with c/o abdominal pain with fluid collection near surgical site Reviewed History: Yes Social History Home: Single Level Current Living Status: Significant Other Entry Into Home: Stairs With Railing PT Steps Into Home: 5 Mobile home Prior/Core FIM Prior Level of Function Functional [place] Measure 0=Not Assessed/NA 4=Minimal Assistance 1=Total Assistance 5=Supervision or Setup 2=Maximal Assistance 6=Modified [place] 3=Moderate Assistance 7=Complete [place] Bed Mobility: 6 Transfers (B,C,W/C) (FIM): 6 Gait: 6 Pt states "I don't do nothing but go to the bathroom or the kitchen". PT Evaluation-Current Subjective Pt in bed, agreeable. Nodding off, needing frequent cues to stay on task. Pt/Family Goals Home Objective Patient Orientation: Person, Confused Problem Solving: Poor ROM/Strength ROM Upper Extremities See OT ROM Lower Extremities WFL for mobility Strength Upper Extremities See OT Strength Lower Extremities Grossly 3/5 Integumentary/Posture Integumentary See nursing notes Posture Flexed Neuromuscular (Tone, Coordination, Reflexes) uncoordinated with FWW at times Sensory Vision: Functional Hearing: Functional Transfers Functional [place] Measure 0=Not Assessed/NA 4=Minimal Assistance 1=Total Assistance 5=Supervision or Setup 2=Maximal Assistance 6=Modified [place] 3=Moderate Assistance 7=Complete [place] Transfers (B, C, W/C) (FIM): 4 Supine to/from Sit: 5 Sit to/from Stand: 4 Gait Mode of Locomotion: Walk Anticipated Mode of Locomotion: Walk Gait (FIM): 2 Distance (FIM): 5=439-83 ft Distance: 100 Gait Level of Assist: 4 Gait Persons Needed: 1 Gait Assistive Device: FWW Comments/Gait Description Pt ambulates with slow, shuffling gait. Precarious at times, prompting to keep eyes open and for safe use of FWW Balance Sitting Static: Good Sitting Dynamic: Fair Standing Static: Fair Standing Dynamic: Fair Treatment Eval Assessment/Needs Pt would benefit from skilled PT to improve functional strength and safety to return home with spouse. Rehab Potential: Fair PT Short Term Goals Short Term Goals Time Frame: Dec 18, 2017 Transfers (B,C,W/C) (FIM): 6 PT Usp Goals Usp Goals PT Usp Goals Time Frame: Dec 26, 2017 Transfers (B,C,W/C) (FIM): 6 Gait (FIM): 6 Gait distance (FIM): 3=150 ft Distance: 150 Gait Level of Assist: 6 Gait Assistive Device: FWW Stairs (FIM): 5 # of Steps: 12 Stairs Level Of Assist: 5 PT goals established to allow safe return home with spouse. PT Plan Problem List Problem List: Activity Tolerance, Functional Strength, Safety, Balance, Gait, Transfer, Bed Mobility Treatment/Plan Treatment Plan: Continue Plan of Care Treatment Plan: Bed Mobility, Education, Functional Activity Shawn, Functional Strength, Gait, Safety, Therapeutic Exercise, Transfers Treatment Duration: Dec 26, 2017 Frequency: 6 times per week Estimated Hrs Per Day: .25 hour per day Patient and/or Family Agrees t: Yes Safety Risks/Education Patient Education: Gait Training, Safety Issues Teaching Recipient: Patient Teaching Methods: Discussion Response to Teaching: Reinforcement Needed Discharge Recommendations Therapy D/C Recommendations: Home w/ Family Support, Physical Therapy Home Care Barriers to Progress cognition, memory Time/GCodes Time In: 1121 Time Out: 1139 Total Billed Treatment Time: 18 Total Billed Treatment 1, EVMODC x 18 (memory, level of arousal, poor safety awareness) G Codes Necessary: No GRABIEL ROOT DPT Dec 12, 2017 14:44
[2017-12-12 16:59] VITALS: BP 123/58
[2017-12-12] MEDS: AUGMENTIN 875 MG TAB (AMOXICILLIN/CLAVULANATE) PO SCH (18:24)
[2017-12-12] MEDS: ZOLPIDEM 5 MG (AMBIEN) TAB PO PRN (22:24)
[2017-12-13] VITALS: BP 133/70
[2017-12-13] MEDS: oxyCODONE/APAP 5/325MG (PERCOCET 5) TABLET PO PRN ×3 (02:03→12:29)
[2017-12-13] MEDS: ALUMINUM HYDROXIDE 320 MG/5 ML PO SCH ×3 (06:49→16:40)
[2017-12-13] MEDS: SIMETHICONE 80 MG (MYLICON) CHEW PO SCH ×4 (06:49→20:10)
[2017-12-13] MEDS: AUGMENTIN 875 MG TAB (AMOXICILLIN/CLAVULANATE) PO SCH ×2 (06:49→18:47)
[2017-12-13] MEDS: LACTATED RINGERS 1,000 ML IV SCH (06:51)
[2017-12-13 08:02] VITALS: BP 123/58
[2017-12-13] MEDS ORDERED: KCL 10 MEQ TAB (MICRO K) PO NR (08:45)
--- NOTE | 2017-12-13 08:50 | Progress Note-Hospitalist ---
Subjective HPI/CC On Admission Date Seen by Provider: Dec 13, 2017 Time Seen by Provider: 08:46 Pt is a 67yoCF with a PMH of HTN and recent hernia repair who presented to the ER with CC of abdominal pain and was found to have a fluid collection near her surgical site. She was admitted for concerns about abscess. She underwent percutaneous drainage and cultures have been sent. I am consulted for medical management. She has no complaints at this time other than feeling "gassy." Her last BM was 10 days ago and she has not passed any flatus. Subjective/Events-last exam Pt still feeling poorly still but is requesting to go home. I asked her if she had been out of her bed yet and she has not even sat in the chair. Discussion the need for strengthening prior to discharge. Objective Exam Vital Signs Vital Signs Date Time Temp Pulse Resp B/P (MAP) Pulse Ox O2 Delivery O2 Flow Rate FiO2 12/13/17 08:02 98.0 91 24 123/58 (79) 93 Room Air 12/09/17 12:50 3.00 Capillary Refill : Less Than 3 Seconds General Appearance: No Apparent Distress, Chronically ill Respiratory: Lungs Clear, No Respiratory Distress Cardiovascular: Regular Rate, Rhythm, No Murmur Gastrointestinal: Normal Bowel Sounds, Non Tender, Soft Results/Procedures Lab Laboratory Tests 12/12/17 13:20 Patient resulted labs reviewed. Imaging: Reviewed Imaging Report Assessment/Plan Assessment and Plan Assess & Plan/Chief Complaint Postoperative fluid collection and ileus Diagnosis/Problems Diagnosis/Problems (1) S/P hernia repair Assessment & Plan: Management per Dr Lopez Ct guided aspiration of fluid collection- cultures show E coli Continue on Augmentin (2) Ileus, postoperative Status: Resolved Assessment & Plan: Resolved (3) HTN (hypertension) Status: Chronic Assessment & Plan: Hold home antihypertensives as BP well controlled Can likely DC at discharge as has not needed them Qualifiers: Hypertension type: essential hypertension Qualified Codes: I10 - Essential (primary) hypertension (4) Anxiety Status: Chronic Assessment & Plan: On benzos at home but doing well without, will hold and likely would benefit from discontinuation at discharge Will resume Citalopram (5) Discharge planning issues Assessment & Plan: unable to care for patient at home Will likely need SNF placement for recovery PT/OT ordered Prevention Rn consulted, appreciate assistance Clinical Quality Measures DVT/VTE Risk/Contraindication: Risk Factor Score Per Nursin RFS Level Per Nursing on Admit: 4+=Very High SALONI HOWARD MD Dec 13, 2017 8:50 am
[2017-12-13] MEDS ORDERED: NON-FORMULARY MEDICATION 1 EA EA (Lovastatin 20 MG) PO SCH (09:00)
[2017-12-13] MEDS: POLYETHYLENE GLYCOL 17 GM (MIRALAX) PACK PO SCH ×2 (11:03→20:27)
[2017-12-13] MEDS: PANTOPRAZOLE 40 MG (PROTONIX) VIAL IV SCH (11:03)
[2017-12-13] MEDS: ERYTHROMYCIN BASE 250 MG TAB/CAP (NON-FORMULARY) PO SCH (11:05)
--- NOTE | 2017-12-13 13:59 | Progress Note ---
Subjective Time Seen by Provider: 12:15 Subjective/Events-last exam Pt seen and examined; she is still lying in bed, although was up in chair today. Pt states she still has minimal pain and feels very weak. She is actually asking if she can go to SNF. Denies N/V Review of Systems General: No Chills, No Night Sweats; Fatigue, Malaise Pulmonary: No Dyspnea, No Cough Cardiovascular: No: Chest Pain Gastrointestinal: Abdominal Pain; No: Nausea, Vomiting Objective Exam Vital Signs Date Time Temp Pulse Resp B/P (MAP) Pulse Ox O2 Delivery O2 Flow Rate FiO2 12/13/17 08:02 98.0 91 24 123/58 (79) 93 Room Air 12/13/17 00:00 100.2 77 28 133/70 (91) 94 Room Air 12/12/17 20:00 Room Air 12/12/17 16:59 98.0 89 24 123/58 (79) 94 Room Air I & O 12/13/17 07:00 Intake Total 1350 ml Output Total 300 ml Balance 1050 ml Capillary Refill : Less Than 3 Seconds General Appearance: No Apparent Distress, Chronically ill HEENT: PERRL/EOMI; No Scleral Icterus (L), No Scleral Icterus (R) Neck: Non Tender, Supple Respiratory: Lungs Clear, No Respiratory Distress Cardiovascular: Regular Rate, Rhythm, No Murmur Gastrointestinal: soft, tenderness, other (drain purely SS, no purulence.) Extremity: Normal Capillary Refill, No Calf Tenderness, No Pedal Edema Neurologic/Psychiatric: Alert, Oriented x3 Results Lab Microbiology 12/09/17 Blood Culture - Preliminary, Resulted No growth 12/11/17 Urine Culture - Final, Complete NO GROWTH 12/09/17 Gram Stain - Final, Resulted 12/09/17 Anaerobic Culture - Preliminary, Resulted No anaerobes isolated 12/09/17 Surgical Culture - Final, Resulted Escherichia coli Assessment/Plan Assessment/Plan Assessment/Plan Anemia + Culture from fluid aspirate - E. Coli, pt was switched to PO Augmentin which covers the E. Coli Hypokalemia - will replace K+ Hyponatremia - resolved Leukocytosis -resolved Ileus s/p laparoscopic RAYMOND and ventral abd inc hernia repair with mesh with intraperitoneal fluid collection and abd pain s/p percutaneous drain placement. Fortunately her leukocytosis is improving and she is no longer hyponatremic; but , now she is Hypokalemic. Will continue to encourage pt to increase PO, especially protein and ambulate. She needs to start gaining some strength back or she will never get better. Pt is drinking some Ensure. Will make sure SW sees pt tomorrow about possible SNF placement. Continue PO ABX for positive culture of aspirated fluid. May need repeat CT to make sure it is not developing into abscess. Clinical Quality Measures DVT/VTE Risk/Contraindication: Risk Factor Score Per Nursin RFS Level Per Nursing on Admit: 4+=Very High CHUCK SWENSON DO Dec 13, 2017 13:59
[2017-12-13] MEDS ORDERED: POTASSIUM CL 10MEQ/50ML IVPB 50 ML IV SCH (14:00)
[2017-12-13] MEDS ORDERED: NS (IVPB) 250 ML ONE (15:21)
[2017-12-13 16:00] VITALS: BP 138/65
[2017-12-13] MEDS ORDERED: KCL 20 MEQ TAB (K-DUR) PO NR (16:15)
[2017-12-13] MEDS: ONDANSETRON 4 MG (ZOFRAN) ORAL DISSOLVE TAB PO PRN (18:11)
[2017-12-13] MEDS: ATORVASTATIN 10 MG (LIPITOR) TABLET PO SCH (20:12)
[2017-12-14 00:23] VITALS: BP 131/63
[2017-12-14] MEDS: SIMETHICONE 80 MG (MYLICON) CHEW PO SCH ×4 (06:22→21:05)
[2017-12-14] MEDS: AUGMENTIN 875 MG TAB (AMOXICILLIN/CLAVULANATE) PO SCH ×2 (06:22→18:05)
[2017-12-14] MEDS: ALUMINUM HYDROXIDE 320 MG/5 ML PO SCH ×3 (06:23→17:49)
[2017-12-14] MEDS: oxyCODONE/APAP 5/325MG (PERCOCET 5) TABLET PO PRN ×3 (07:02→21:18)
[2017-12-14 08:00] VITALS: BP 112/55
[2017-12-14 08:02] LABS: ALANINE AMINOTRANSFERASE < 6 U/L (0-55); ALBUMIN 2.8 GM/DL (3.2-4.5); ALKALINE PHOSPHATASE 59 U/L (40-136); BILIRUBIN,TOTAL 0.5 MG/DL (0.1-1.0); BUN/CREATININE RATIO 6; CALCIUM 8.8 MG/DL (8.5-10.1); CARBON DIOXIDE 27 MMOL/L (21-32); CHLORIDE 100 MMOL/L (98-107); CREATININE SERUM 0.54 MG/DL (0.60-1.30); GFR ESTIMATED > 60; GLUCOSE 111 MG/DL (70-105); POTASSIUM 3.6 MMOL/L (3.6-5.0); SODIUM 135 MMOL/L (135-145)
[2017-12-14] MEDS: PANTOPRAZOLE 40 MG (PROTONIX) VIAL IV SCH (09:39)
[2017-12-14] MEDS: POLYETHYLENE GLYCOL 17 GM (MIRALAX) PACK PO SCH ×2 (09:39→21:05)
[2017-12-14] MEDS ORDERED: PANTOPRAZOLE 40 MG (PROTONIX) TAB PO ONE (09:42)
[2017-12-14] MEDS: PANTOPRAZOLE 40 MG (PROTONIX) TAB PO SCH (09:48)
[2017-12-14] MEDS: LACTATED RINGERS 1,000 ML IV SCH (09:55)
--- NOTE | 2017-12-14 12:03 | Physical Therapy Daily Note ---
PT Daily Note-Current Subjective Patient and family agree to PT. Pain Numeric Pain Scale: 0-No Pain Location: No Pain Reported Mental Status Patient Orientation: Person, Time, Situation Transfers Functional [place] Measure 0=Not Assessed/NA 4=Minimal Assistance 1=Total Assistance 5=Supervision or Setup 2=Maximal Assistance 6=Modified [place] 3=Moderate Assistance 7=Complete IndependenceIRFPAI Quality Coding Scale 6 Independent with activity with or without an assistive device 5 Patient requires set up or clean up by helper. Patient completes activity by themselves 4 Supervision or touching assist (CGA). [place] provide cues , steadying assist 3 The helper provides less than half the effort to complete the activity 2 The helper provides more than half the effort to complete the activity 1 Dependent. The helper does all the effort to complete an activity 7 Patient refused to complete or attempt activity 9 The patient did not perform the activity before the current illness or injury 88 Not attempted due to Medical conditions or safety concerns Transfers (B, C, W/C) (FIM): 4 Scootin Rollin Supine to/from Sit: 5 Sit to/from Stand: 4 Bed to/from Chair: 4 CGA for safety/patient is unsteady in stand (per spouse, this is her PLOF) Weight Bearing Right Lower Extremity: Right Weight Bearing/Tolerated Left Lower Extremity: Left Weight Bearing/Tolerated Gait Training Gait (FIM): 4 Distance (FIM): 3=150 ft Distance: 280' Gait Level of Assist: 4 Gait Assistive Device: FWW unsteady gait sequence requiring assist to maintain upright position Assessment Patient has difficulty following PT direction with body placement in FWW and safety concerns. Spouse reports, this is patient PLOF "since the stroke". PT to increase activity as tolerated by patient. PT Short Term Goals Short Term Goals Time Frame: Dec 18, 2017 Transfers (B,C,W/C) (FIM): 6 PT [employer] Dies Goals Nursing Home Goals PT [employer] Dies Goals Time Frame: Dec 26, 2017 Transfers (B,C,W/C) (FIM): 6 Gait (FIM): 6 Gait distance (FIM): 3=150 ft Distance: 150 Gait Level of Assist: 6 Gait Assistive Device: FWW Stairs (FIM): 5 # of Steps: 12 Stairs Level Of Assist: 5 PT Plan Treatment/Plan Treatment Plan: Continue Plan of Care Treatment Plan: Bed Mobility, Education, Functional Activity Shawn, Functional Strength, Gait, Safety, Therapeutic Exercise, Transfers Treatment Duration: Dec 26, 2017 Frequency: 6 times per week Estimated Hrs Per Day: .25 hour per day Patient and/or Family Agrees t: Yes Time/GCodes Time In: 115 Time Out: 1124 Total Billed Treatment Time: 9 Total Billed Treatment 1 visit GT 9 min RIKKI SULLIVAN PT Dec 14, 2017 12:03
[2017-12-14] MEDS: NYSTATIN ORAL SUSP 5 ML UDC PO SCH ×2 (12:34→18:05)
[2017-12-14 16:00] VITALS: BP 109/54
[2017-12-14 17:29] VITALS: BP 109/54
--- NOTE | 2017-12-14 18:02 | Progress Note (SOAP) ---
Subjective Date Seen by Provider: Dec 14, 2017 Time Seen by Provider: 17:30 Subjective/Events-last exam doing ok. patient still reports chronic abdominal pain which is baseline. patient has had multiple BM's and wants different food choices(regular diet) Objective Exam Vital Signs Date Time Temp Pulse Resp B/P (MAP) Pulse Ox O2 Delivery O2 Flow Rate FiO2 12/14/17 16:00 98.7 77 16 109/54 (72) 90 Room Air 12/14/17 08:20 Room Air 12/14/17 08:00 96.9 89 18 112/55 (74) 91 Room Air 12/14/17 00:23 100.1 104 20 131/63 (85) 90 Room Air 12/13/17 20:00 Room Air I & O 12/14/17 07:00 Intake Total 1800 ml Balance 1800 ml Capillary Refill : Less Than 3 Seconds General Appearance: No Apparent Distress HEENT: PERRL/EOMI Neck: Full Range of Motion Respiratory: Chest Non Tender, Lungs Clear Cardiovascular: Regular Rate, Rhythm Gastrointestinal: soft, tenderness, other (non-distended) Extremity: Normal Capillary Refill Neurologic/Psychiatric: Alert, Oriented x3 Skin: Normal Color Lymphatic: No Adenopathy Results Lab Laboratory Tests 12/14/17 07:20: Sodium Level 135, Potassium Level 3.6, Chloride Level 100, Carbon Dioxide Level 27, Anion Gap 8, Blood Urea Nitrogen 3L, Creatinine 0.54L, Estimat Glomerular Filtration Rate > 60, BUN/Creatinine Ratio 6, Glucose Level 111H, Calcium Level 8.8, Corrected Calcium 9.8, Total Bilirubin 0.5, Aspartate Amino Transf (AST/ SGOT) 17, Alanine Aminotransferase (ALT/SGPT) < 6, Alkaline Phosphatase 59, Total Protein 6.0L, Albumin 2.8L Microbiology 12/09/17 Blood Culture - Preliminary, Resulted No growth 12/11/17 Urine Culture - Final, Complete NO GROWTH 12/09/17 Gram Stain - Final, Complete 12/09/17 Anaerobic Culture - Final, Complete No anaerobes isolated 12/09/17 Surgical Culture - Final, Complete Escherichia coli Assessment/Plan Assessment/Plan Assess & Plan/Chief Complaint s/p laparoscopic RAYMOND and ventral abd inc hernia repair with mesh with intraperitoneal fluid collection and abd pain s/p percutaneous drain placement states possible previous hx tardive dyskinesia so will hold off on reglan. suspect bile acid reflux based on previous EGD and nature of previous bypass surgery. will start aluminum containing antacids. doing better now and had 2 large BM's. advance to regular diet. patient states weak and after talking with in confidence states that he cannot take care of her at home. will consult SS for placement. await placement which appears to be SNF Clinical Quality Measures DVT/VTE Risk/Contraindication: Risk Factor Score Per Nursin RFS Level Per Nursing on Admit: 4+=Very High WAYNE AVILA MD Dec 14, 2017 6:02 pm
[2017-12-14] MEDS: ATORVASTATIN 10 MG (LIPITOR) TABLET PO SCH (21:05)
[2017-12-15] VITALS: BP 111/52
[2017-12-15] MEDS: NYSTATIN ORAL SUSP 5 ML UDC PO SCH ×4 (00:15→19:19)
[2017-12-15] MEDS: oxyCODONE/APAP 5/325MG (PERCOCET 5) TABLET PO PRN ×4 (04:11→21:36)
[2017-12-15] MEDS: ALUMINUM HYDROXIDE 320 MG/5 ML PO SCH ×3 (06:07→15:56)
[2017-12-15] MEDS: AUGMENTIN 875 MG TAB (AMOXICILLIN/CLAVULANATE) PO SCH ×2 (06:07→19:19)
[2017-12-15] MEDS: SIMETHICONE 80 MG (MYLICON) CHEW PO SCH ×4 (06:07→19:19)
[2017-12-15] MEDS: PANTOPRAZOLE 40 MG (PROTONIX) TAB PO SCH (06:07)
[2017-12-15 07:50] VITALS: BP 102/58
[2017-12-15] MEDS: ONDANSETRON 4 MG (ZOFRAN) ORAL DISSOLVE TAB PO PRN (08:05)
[2017-12-15] MEDS: POLYETHYLENE GLYCOL 17 GM (MIRALAX) PACK PO SCH ×2 (08:07→19:20)
--- NOTE | 2017-12-15 10:39 | Occ Therapy Progress Note ---
Therapy Progress Note Attempted OT treatment with pt. Pt. in bed and on phone. Spouse in room. Pt. state, "are you going to make me work again?" Pt. then states that she was just up with PT and had a "terrible night." Declines OT at this time. Will attempt back as time allows. 1, visit 1030 MARION BANERJEE OT Dec 15, 2017 10:39
--- NOTE | 2017-12-15 10:47 | Physical Therapy Daily Note ---
PT Daily Note-Current Subjective Patient states, "I can either start to live or start to ." She agrees to PT. Pain Numeric Pain Scale: 0-No Pain Location: No Pain Reported Mental Status Patient Orientation: Person, Time, Situation Transfers Functional [place] Measure 0=Not Assessed/NA 4=Minimal Assistance 1=Total Assistance 5=Supervision or Setup 2=Maximal Assistance 6=Modified [place] 3=Moderate Assistance 7=Complete IndependenceIRFPAI Quality Coding Scale 6 Independent with activity with or without an assistive device 5 Patient requires set up or clean up by helper. Patient completes activity by themselves 4 Supervision or touching assist (CGA). [place] provide cues , steadying assist 3 The helper provides less than half the effort to complete the activity 2 The helper provides more than half the effort to complete the activity 1 Dependent. The helper does all the effort to complete an activity 7 Patient refused to complete or attempt activity 9 The patient did not perform the activity before the current illness or injury 88 Not attempted due to Medical conditions or safety concerns Transfers (B, C, W/C) (FIM): 5 Scootin Rollin Supine to/from Sit: 5 Sit to/from Stand: 5 Weight Bearing Right Lower Extremity: Right Weight Bearing/Tolerated Left Lower Extremity: Left Weight Bearing/Tolerated Gait Training Gait (FIM): 5 Distance (FIM): 3=150 ft Distance: 425' Gait Level of Assist: 5 Gait Assistive Device: FWW functional gait sequence with FWW/no deviation Assessment Patient incontinent BM during treatment requiring dependent assist to cleanse and change. Patient is much improved from yesterdays treatment. PT Short Term Goals Short Term Goals Time Frame: Dec 18, 2017 Transfers (B,C,W/C) (FIM): 6 PT [employer] Applic[employer] Goals Skilled Nursing Goals PT [employer] Applicator Goals Time Frame: Dec 26, 2017 Transfers (B,C,W/C) (FIM): 6 Gait (FIM): 6 Gait distance (FIM): 3=150 ft Distance: 150 Gait Level of Assist: 6 Gait Assistive Device: FWW Stairs (FIM): 5 # of Steps: 12 Stairs Level Of Assist: 5 PT Plan Treatment/Plan Treatment Plan: Continue Plan of Care Treatment Plan: Bed Mobility, Education, Functional Activity Shawn, Functional Strength, Gait, Safety, Therapeutic Exercise, Transfers Treatment Duration: Dec 26, 2017 Frequency: 6 times per week Estimated Hrs Per Day: .25 hour per day Patient and/or Family Agrees t: Yes Time/GCodes Time In: 850 Time Out: 900 Total Billed Treatment Time: 10 Total Billed Treatment 1 visit FA 10 min RIKKI SULLIVAN PT Dec 15, 2017 10:47
--- NOTE | 2017-12-15 12:49 | Progress Note (SOAP) ---
Subjective Date Seen by Provider: Dec 15, 2017 Time Seen by Provider: 12:00 Subjective/Events-last exam doing well. tolerating diet and having diarrhea. no fever/chills. no recurrent hernia. Objective Exam Vital Signs Date Time Temp Pulse Resp B/P (MAP) Pulse Ox O2 Delivery O2 Flow Rate FiO2 12/15/17 07:50 98.2 88 18 102/58 (73) 96 Room Air 12/15/17 00:00 97.3 85 16 111/52 (71) 90 Room Air 12/14/17 20:00 Room Air 12/14/17 16:00 98.7 77 16 109/54 (72) 90 Room Air I & O 12/15/17 07:00 Intake Total 1340 ml Balance 1340 ml Capillary Refill : Less Than 3 Seconds General Appearance: No Apparent Distress HEENT: PERRL/EOMI Neck: Full Range of Motion Respiratory: Chest Non Tender, Normal Breath Sounds Cardiovascular: Regular Rate, Rhythm Gastrointestinal: normal bowel sounds, soft Extremity: Normal Capillary Refill Neurologic/Psychiatric: Alert, Oriented x3 Skin: Normal Color Lymphatic: No Adenopathy Results Lab Microbiology 12/09/17 Blood Culture - Preliminary, Resulted No growth 12/11/17 Urine Culture - Final, Complete NO GROWTH 12/09/17 Gram Stain - Final, Complete 12/09/17 Anaerobic Culture - Final, Complete No anaerobes isolated 12/09/17 Surgical Culture - Final, Complete Escherichia coli Assessment/Plan Assessment/Plan Assess & Plan/Chief Complaint s/p laparoscopic RAYMOND and ventral abd inc hernia repair with mesh with intraperitoneal fluid collection and abd pain s/p percutaneous drain placement states possible previous hx tardive dyskinesia so will hold off on reglan. suspect bile acid reflux based on previous EGD and nature of previous bypass surgery. will start aluminum containing antacids. doing better now and had 2 large BM's. advance to regular diet. patient states weak and after talking with in confidence states that he cannot take care of her at home. will consult SS for placement. await placement which appears to be SNF Clinical Quality Measures DVT/VTE Risk/Contraindication: Risk Factor Score Per Nursin RFS Level Per Nursing on Admit: 4+=Very High WAYNE AVILA MD Dec 15, 2017 12:49 pm
--- NOTE | 2017-12-15 14:37 | Occupational Ther Daily Note ---
OT Current Status-Daily Note Subjective Pt. states that she feels "terrible" but does not give a pain number or state why this is. Is very agreeable to work with OT and asks if she can "walk." Appearance Pt. in bed. Agrees to work with OT. Mental Status/Objective Patient Orientation: Person Functional [place] Measure 0=Not Assessed/NA 4=Minimal Assistance 1=Total Assistance 5=Supervision or Setup 2=Maximal Assistance 6=Modified [place] 3=Moderate Assistance 7=Complete [place] ADL-Treatment Lower Body Dressing (FIM): 5 (SBA to don socks on side of bed.) Toileting (FIM): 5 (SBA to cleanse self.) Transfers (B, C, W/C) (FIM): 4 (CGA for ambulation with walker.) Toilet/Commode Transfer (FIM): 4 Other Treatment Pt. agreed to ambulate with OT. Transferred supine-sit with SBA. Donned socks with SBA and ambulated into bathroom with CGA. Transferred to toilet and toileted with SBA. Ambulated approximately 250 feet with walker and CGA. OT asked pt. if she would like to sit up. Pt. reports that she would like to lay back down. Transferred sit-supine with SBA. OT set bed alarm and all needs met. Son and spouse in room. Education OT Patient Education: Correct positioning, Modified ADL techniques, Progress toward Goal/Update tx plan, Purpose of tx/functional activities, Reviewed precautions, Rehab process, Transfer techniques Teaching Recipient: Patient Teaching Methods: Demonstration, Discussion Response to Teaching: Verbalize Understanding, Return Demonstration OT Short Term Goals Short Term Goals Transfers (B,C,W/C) (FIM): 6 1=Demonstrate adherence to instructed precautions during ADL tasks. 2=Patient will verbalize/demonstrate understanding of assistive devices/ modifications for ADL. 3=Patient will improve strength/tolerance for activity to enable patient to perform ADL's. OT Fpc Goals [employer] Goals Time Frame: Dec 19, 2017 Eating (FIM): 6 Grooming(FIM): 6 Bathing(FIM): 5 Upper Body Dressing(FIM): 6 Lower Body Dressing(FIM): 6 Toileting(FIM): 6 Transfers (B,C,W/C) (FIM): 6 Toilet/Commode Transfer(FIM): 6 Shower Transfer(FIM): 5 Additional Goals: 1-Demonstrate ADL Tasks, 2-Verbalize Understanding, 3- ImproveStrength/Shawn 1=Demonstrate adherence to instructed precautions during ADL tasks. 2=Patient will verbalize/demonstrate understanding of assistive devices/ modifications for ADL. 3=Patient will improve strength/tolerance for activity to enable patient to perform ADL's. OT Education/Plan Problem List/Assessment Assessment: Decreased Activ Tolerance, Impaired I ADL's, Impaired Self-Care Skills Discharge Recommendations Plan/Recommendations: Continue POC Therapy D/C Recommendations: Home w/ Family Support, Occupational Therapy Home Care Treatment Plan/Plan of Care Treatment,Training & Education: Yes Patient would benefit from OT for education, treatment and training to promote independence in ADL's, mobility, safety and/or upper extremity function for ADL' s. Plan of Care: ADL Retraining, Functional Mobility, UE Funct Exercise/Act Treatment Duration: Dec 19, 2017 Frequency: 5 times per week Estimated Hrs Per Day: .25 hour per day Agreement: Yes Rehab Potential: Fair Time/GCodes Start Time: 14:05 Stop Time: 14:25 Total Time Billed (hr/min): 20 Billed Treatment Time 1, ADL MARION BANERJEE OT Dec 15, 2017 14:37
[2017-12-15 16:00] VITALS: BP 105/58
[2017-12-15] MEDS: ATORVASTATIN 10 MG (LIPITOR) TABLET PO SCH (19:19)
[2017-12-16] VITALS: BP 112/56
[2017-12-16] MEDS: NYSTATIN ORAL SUSP 5 ML UDC PO SCH ×3 (00:12→11:31)
[2017-12-16] MEDS: oxyCODONE/APAP 5/325MG (PERCOCET 5) TABLET PO PRN ×2 (02:03→08:38)
[2017-12-16] MEDS: PANTOPRAZOLE 40 MG (PROTONIX) TAB PO SCH (05:49)
[2017-12-16] MEDS: ALUMINUM HYDROXIDE 320 MG/5 ML PO SCH ×2 (05:49→11:32)
[2017-12-16] MEDS: AUGMENTIN 875 MG TAB (AMOXICILLIN/CLAVULANATE) PO SCH (05:49)
[2017-12-16] MEDS: SIMETHICONE 80 MG (MYLICON) CHEW PO SCH ×2 (05:49→11:31)
[2017-12-16 07:59] VITALS: BP 104/62
[2017-12-16] MEDS: POLYETHYLENE GLYCOL 17 GM (MIRALAX) PACK PO SCH (08:35)
--- NOTE | 2017-12-16 09:11 | Progress Note-Hospitalist ---
LUCY COVINGTON MED STUDENT 12/16/17 0911: Subjective HPI/CC On Admission Date Seen by Provider: Dec 16, 2017 Time Seen by Provider: 07:10 Pt is a 67yoCF with a PMH of HTN and recent hernia repair who presented to the ER with CC of abdominal pain and was found to have a fluid collection near her surgical site. She was admitted for concerns about abscess. She underwent percutaneous drainage and cultures have been sent. I am consulted for medical management. She has no complaints at this time other than feeling "gassy." Her last BM was 10 days ago and she has not passed any flatus. Subjective/Events-last exam Afebrile, no acute events overnight Pt reports that she is not doing well- depressed Reports her pain is a 10 in her lower abdomen; decreases to a 6 with pain medicine -BM today; last BM was yesterday Pt states that a family member of hers is looking into an appointment at [facility] (?) Currently [place] [facility] Objective Exam Vital Signs Vital Signs Date Time Temp Pulse Resp B/P (MAP) Pulse Ox O2 Delivery O2 Flow Rate FiO2 12/16/17 08:00 Room Air 12/16/17 07:59 98.0 67 18 104/62 (76) 94 Capillary Refill : Less Than 3 Seconds Results/Procedures Lab Patient resulted labs reviewed. Imaging: Reviewed Imaging Report Assessment/Plan Assessment and Plan Assess & Plan/Chief Complaint Assessment: s/p hernia repair HTN Anxiety Plan: Pain management Anx Clinical Quality Measures DVT/VTE Risk/Contraindication: Risk Factor Score Per Nursin RFS Level Per Nursing on Admit: 4+=Very High LEANDER ARGUETA DO 12/16/17 1151: Subjective Subjective/Events-last exam Patient having chronic and ongoing abdominal pain Spoke to PCP office and left message that [facility] Review of Systems General: Fatigue Gastrointestinal: Abdominal Pain Objective Exam General Appearance: No Apparent Distress, WD/WN, Chronically ill Respiratory: Chest Non Tender, Lungs Clear, Normal Breath Sounds, No Accessory Muscle Use, No Respiratory Distress Cardiovascular: Regular Rate, Rhythm, No Edema, No Gallop, No JVD, No Murmur, Normal Peripheral Pulses Neurologic/Psychiatric: Alert, Oriented x3, No Motor/Sensory Deficits, Depressed Affect Assessment/Plan Assessment and Plan Assess & Plan/Chief Complaint Chronic abdominal pain Severe and progressive debility Narcotic dependence Diagnosis/Problems Diagnosis/Problems (1) Abdominal pain Status: Chronic Qualifiers: Abdominal location: generalized Qualified Codes: R10.84 - Generalized abdominal pain (2) Narcotic dependence Status: Chronic (3) Debility Status: Acute (4) Poor prognosis Status: Acute (5) Ileus, postoperative Status: Resolved (6) HTN (hypertension) Status: Chronic Qualifiers: Hypertension type: essential hypertension Qualified Codes: I10 - Essential (primary) hypertension (7) Anxiety Status: Chronic (8) S/P hernia repair Status: Resolved LUCY COVINGTON STUDENT Dec 16, 2017 09:11 LEANDER ARGUETA DO Dec 16, 2017 11:51
[2017-12-16] MEDS ORDERED: POLY17PO23 PO (09:59)
[2017-12-16] MEDS ORDERED: NYST1000 PO (09:59)
[2017-12-16] MEDS ORDERED: ZOLP10TA5 PO (09:59)
[2017-12-16] MEDS ORDERED: PANT40TA3 PO (09:59)
[2017-12-16] MEDS ORDERED: OXYC-471 PO (09:59)
[2017-12-16] MEDS ORDERED: ALPR1TAB7 PO (09:59)
--- NOTE | 2017-12-16 10:02 | Discharge Summary-Hospitalist ---
Diagnosis/Chief Complaint Date of Admission Dec 08, 2017 at 15:15 Date of Discharge Discharge Date: Dec 16, 2017 Discharge Diagnosis (1) S/P hernia repair Status: Resolved Assessment & Plan: Management per Dr Lopez Ct guided aspiration of fluid collection- cultures show E coli Continue on Augmentin (2) Ileus, postoperative Status: Resolved Assessment & Plan: Resolved (3) HTN (hypertension) Status: Chronic Assessment & Plan: Hold home antihypertensives as BP well controlled Can likely DC at discharge as has not needed them (4) Anxiety Status: Chronic Assessment & Plan: On benzos at home but doing well without, will hold and likely would benefit from discontinuation at discharge Will resume Citalopram (5) Discharge planning issues Status: Resolved Assessment & Plan: unable to care for patient at home Will likely need SNF placement for recovery PT/OT ordered Rotary Adjuster consulted, appreciate assistance (6) Poor prognosis Status: Acute (7) Debility Status: Acute (8) Abdominal pain Status: Chronic (9) Narcotic dependence Status: Chronic Discharge Summary Discharge Physical Exam Allergies: Coded Allergies: tetracycline (Unverified Allergy, Mild, 11/24/17) Vitals & I&Os Vital Signs Date Time Temp Pulse Resp B/P (MAP) Pulse Ox O2 Delivery O2 Flow Rate FiO2 12/16/17 08:00 Room Air 12/16/17 07:59 98.0 67 18 104/62 (76) 94 General Appearance: No Apparent Distress, WD/WN, Chronically ill, Obese HEENT: PERRL/EOMI Respiratory: Chest Non Tender, Lungs Clear, Normal Breath Sounds, No Accessory Muscle Use, No Respiratory Distress Cardiovascular: Regular Rate, Rhythm, No Edema, No Gallop, No JVD, No Murmur, Normal Peripheral Pulses Gastrointestinal: Normal Bowel Sounds, No Organomegaly, No Pulsatile Mass, Non Tender, Soft Extremity: Normal Capillary Refill, Normal Inspection, Normal Range of Motion, Non Tender, No Calf Tenderness, No Pedal Edema Skin: Normal Color, Warm/Dry Neurologic/Psychiatric: Alert, Oriented x3, No Motor/Sensory Deficits, Depressed Affect Hospital Course Hospital course: patient had a complex hospital course. Hernia repair resulted in post-op ileus but chronic abdominal pain and severe and progressive debility gave rise to slow recovery. care home was arranged and overall patient has a poor prognosis given the fact of her severe debility and poor motivation overall to recover but will support the patient in any way possible to improved her quality of life and hope to DC her back to independent living after skilled treatment has been completed. Narcotic dependence is an issue and patient has required 2 Percocet Q4 hrs since admit and although it is unfortunate to have narcotic dependence we need to support and resolve as much pain as possible to facilitate PT participation and overall quality of life. PCP office updated on the plan. Labs (last 24 hrs) Microbiology 12/09/17 Blood Culture - Final, Complete No growth 12/11/17 Urine Culture - Final, Complete NO GROWTH 12/09/17 Gram Stain - Final, Complete 12/09/17 Anaerobic Culture - Final, Complete No anaerobes isolated 12/09/17 Surgical Culture - Final, Complete Escherichia coli Patient resulted labs reviewed. Imaging: Reviewed Imaging Report Discussion & Recommendations Discharge Planning: <30 minutes discharge planning Discharge Home Medications: Active Scripts Active Pantoprazole Sodium 40 Mg Tablet.dr 40 Mg PO DAILY@0700 30 Days Polyethylene Glycol 3350 17 Gm Powd.pack 17 Gm PO BID 30 Days Oxycodone-Acetaminophen 5-325 (Oxycodone HCl/Acetaminophen) 1 Each Tablet 2 Tab PO Q4H PRN Nystatin 100,000 Unit/1 Ml Oral.susp 5 Ml PO Q6HR 5 Days Alprazolam 1 Mg Tablet 1 Mg PO BID PRN Zolpidem Tartrate 10 Mg Tablet 10 Mg PO HS Reported Colace (Docusate Sodium) 100 Mg Capsule 100 Mg PO BID Aspirin 325 Mg Tablet 325 Mg PO DAILY Lovastatin 20 Mg Tablet 20 Mg PO DAILY Citalopram HBr (Citalopram Hydrobromide) 20 Mg Tablet 30 Mg PO DAILY TAKES 1 & 1/2 (20MG) TABLET Instructions to patient/family Please see electronic discharge instructions given to patient. Clinical Quality Measures DVT/VTE Risk/Contraindication: Risk Factor Score Per Nursin RFS Level Per Nursing on Admit: 4+=Very High Problem Qualifiers (1) HTN (hypertension): Hypertension type: essential hypertension Qualified Codes: I10 - Essential ( primary) hypertension (2) Abdominal pain: Abdominal location: generalized Qualified Codes: R10.84 - Generalized abdominal pain LEANDER ARGUETA DO Dec 16, 2017 10:02
--- NOTE | 2017-12-16 10:57 | Occ Therapy Progress Note ---
Therapy Progress Note Attempted therapy at 1045. Pt resting in bed, states she will be discharging to [facility] soon. Declined therapy, requested to rest until d/c. Denied needs at this time. 1, visit JOAQUÍN ABRAHAM OT Dec 16, 2017 10:57
--- NOTE | 2017-12-16 11:13 | Discharge Inst-Skilled Nursing ---
Discharge Inst-Skilled NF Patient Instructions Patient Problems: Chronic abdominal pain Narcotic dependency Debility Goal: Return to independent living Consult/Follow Up/Orders Follow Up Appt.: Dr Santos for HI rounds Skilled NF Admit to: [facility] [place] Certification ([facility]) I certify that SNF services are required to be given on an inpatient basis because of the above named patient's need for detention care on a continuing basis for the conditions(s) for which he/she was receiving inpatient hospital services prior to his/her transfer to the SNF. Group Home Facility Order: Nursing Services, Buggy Man-Evaluate & Treat, Physical Therapy-Evaluate & Treat, Speech Language-Evaluate & Treat Discharge Diet: No Restrictions Daily Activity as Tolerated: Yes New & Resume Previous Orders Maia Stein Dec 16, 2017 11:13 Pneu Vac Indicated: Yes MAIA STEIN DO Dec 16, 2017 11:13
[2017-12-16 11:54] VITALS: BP 104/62
--- NOTE | 2017-12-18 15:01 | Physician Query Clarification ---
PQ-Intro New Diagnosis Admission/Discharge Admission Date: Dec 09, 2017 at 09:45 Discharge Date: Dec 16, 2017 at 11:55 The medical record reflects the following clinical scenario: History/Risk Factors: INTRAPERITONEAL FLUID COLLECTION Clinical Findings: On Zosyn,concern for abscess, fluid collection shows E-coli Treatment: PERCUTANEOUS DRAIN PLACEMENT Question: What condition best reflects the above clinical scenario? Please document below. 1. peritoneal abscess, in addition to infection following a procedure 2. infection following a procedure, no abscess 3. Other, with explanation of the clinical findings. 4. Clinically undetermined, no explanation for the clinical findings. PHYSICIAN RESPONSE What condition reflects above: Clinically undetermined In responding to this query, please exercise your independent professional judgment. The purpose of this communication is to more accurately reflect the complexity of your patients condition. The fact that a question is asked does not imply that any particular answer is desired or expected. Thank you for your timely response to this clarification. Requestors name: [ ] Phone # [ ] THIS PHYSICIAN QUERY FORM IS A PERMANENT PART OF THE MEDICAL RECORD SURI NAGEL Dec 18, 2017 15:01 LEANDER ARGUETA DO Dec 18, 2017 17:55
--- OUTSIDE RECORDS SUMMARY | 2017-12-19 03:30 | XMS REPORT | Clinical Summary ---
Author Author [facility] Organization [facility] Address Unknown Phone Unavailable Care Team Providers Care Front End Specialist Name Role Phone Zack Santos MD PCP Source Comments Some departments are not documenting in the electronic medical record. If you do not see the information that you expected, contact Release of Information in the Health Information Management department at [phone] for further assistance in locating additional records.[facility] Allergies Active Allergy Reactions Severity Noted Date [...]
--- OUTSIDE RECORDS SUMMARY | 2017-12-19 03:33 | XMS REPORT ---
Author Author ELYSIA AVIVA 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 Active 33238310 Problem Encounter for long-term (current) use of other medications V58.69 Active 614629322 Problem Major depressive disorder, recurrent episode, mild with anxious distress F33.0 Active 10506913 Problem Depressive disorder, not elsewhere classified 311 Active 92537193 ALLERGIES No Information ENCOUNTERS Encounter Location Date Diagnosis [facility] [id number] [place] [address] 01483- 4545 Jan, [facility] [id number] [place] [address] 99512- 9900 Nov, Major depressive disorder, recurrent episode, mild with anxious distress F33.0 [facility] [id number] [place] [address] 17727- 4724 Nov, Major depressive disorder, recurrent episode, mild with anxious distress F33.0 ; Generalized anxiety disorder F41.1 and 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 [facility] [id number] [place] [address] 04583- 3435 Oct, Major depressive disorder, recurrent episode, mild with anxious distress F33.0 [facility] [id number] [place] [address] 21545- 0933 Sep, Major depressive disorder, recurrent episode, mild with anxious distress F33.0 [facility] [id number] [place] [address] 45754- 6286 August, Major depressive disorder, recurrent episode, mild with anxious distress F33.0 [facility] [id number] [place] [address] 10754- 4238 August, Major depressive disorder, recurrent episode, mild with anxious distress F33.0 ; Generalized anxiety disorder F41.1 and 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 [facility] [id number] [place] [address] 99225- 4402 Jul, Major depressive disorder, recurrent episode, mild with anxious distress F33.0 [facility] [id number] [place] [address] 56593- 6746 Jul, Major depressive disorder, recurrent episode, mild with anxious distress F33.0 [facility] [id number] [place] [address] 44167- 5819 Jun, Major depressive disorder, recurrent episode, mild with anxious distress F33.0 [facility] [id number] [place] [address] 69859- 7928 May, Major depressive disorder, recurrent episode, mild with anxious distress F33.0 [facility] [id number] [place] [address] 94561- 3829 May, Major depressive disorder, recurrent episode, mild with anxious distress F33.0 ; Generalized anxiety disorder F41.1 and 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 [facility] [id number] [place] [address] 17288- 7720 Apr, Major depressive disorder, recurrent episode, mild with anxious distress F33.0 [facility] [id number] [place] [address] 07520- 2123 Mar, Major depressive disorder, recurrent episode, mild with anxious distress F33.0 [facility] [id number] [place] [address] 26633- 1441 Feb, Major depressive disorder, recurrent episode, mild with anxious distress F33.0 [facility] [id number] [place] [address] 08268- 4579 Feb, Major depressive disorder, recurrent episode, mild with anxious distress F33.0 ; Generalized anxiety disorder F41.1 and 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 [id number] [address] Jan, Major depressive disorder, recurrent episode, mild with anxious distress F33.0 [facility] [address] [facility] [id number] [place] [address] 99907- 6708 Dec, Major depressive disorder, recurrent episode, mild with anxious distress F33.0 [facility] [address] [facility] [id number] [place] [address] 25856- 0377 Nov, Major depressive disorder, recurrent episode, mild with anxious distress F33.0 [facility] [address] 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 [id number] [address]- 0045 Sep, Major depressive disorder, recurrent episode, mild with anxious distress F33.0 and Generalized anxiety disorder F41.1 [facility] [address] [facility] [id number] [address] 1050 Sep, [facility] [address] [facility] [id number] [address]- 8995 Jul, Major depressive disorder, recurrent episode, mild with anxious distress F33.0 [facility] [id number] [place] [address] 43212- 8252 Jun, Major depressive disorder, recurrent episode, mild with anxious distress F33.0 [facility] [id number] [place] [address] 29240- 6304 May, Major depressive disorder, recurrent episode, mild with anxious distress F33.0 [facility] [id number] [place] [address] 63982- 6187 May, Major depressive disorder, recurrent episode, mild with anxious distress F33.0 [facility] [id number] [place] [address] 34738- 4847 May, Major depressive disorder, recurrent episode, mild with anxious distress F33.0 and Generalized anxiety disorder F41.1 [facility] [id number] [place] [address] 87956- 3998 Jan, [facility] [id number] [place] [address] 61089- 1013 Dec, Major depressive disorder, recurrent episode, mild with anxious distress F33.0 and Insomnia, unspecified type G47.00 [facility] [id number] [place] [address] 92086- 2355 Sep, [facility] [id number] [place] [address] 49480- 4679 Sep, Major depressive disorder, recurrent episode, mild with anxious distress F33.0 [facility] [id number] [place] [address] 00840- 3162 August, [facility] [id number] [place] [address] 93790- 2976 August, Generalized anxiety disorder F41.1 [facility] [id number] [place] [address] 28488- 0546 Jul, [facility] [id number] [place] [address] 97235- 2129 Jul, [facility] [address] [address]- 3895 May, [facility] [id number] [place] [address] 13198- 4526 Mar, [facility] [id number] [place] [address] 37468- 2746 Mar, [facility] [id number] [place] [address] 25359- 4832 Mar, Major depressive disorder, single episode, unspecified F32.9 and Generalized anxiety disorder F41.1 [facility] [id number] [place] [address] 59860- 8425 Nov, Depressive disorder, not elsewhere classified 311 and Generalized anxiety disorder 300.02 [facility] [id number] [place] [address] 826665- 3746 Nov, [facility] [id number] [address]- 9776 Oct, [facility] [id number] [place] [address] 88682- 8800 Sep, [facility] [address] [address]- 9849 Sep, [facility] [id number] [place] [address] 915991- 5480 August, Depressive disorder, not elsewhere classified 311 and Generalized anxiety disorder 300.02 [facility] [address] 8958 August, [facility] [id number] [place] [address] 496975- 8821 Jul, [facility] [address] 2571 Jul, [facility] [id number] [place] [address] 73777- 9961 13 Apr, 2014 [facility] [place] [facility] [address] [id number] [place] [address]- 5067 13 Apr, 2014 [facility] [place] [facility] [address] [id number] [place] [address]- 8726 15 Mar, 2014 [facility] [place] [facility] [address] [id number] [place] [address]- 1137 15 Mar, 2014 [facility] [place] [facility] [address] [id number] [place] [address]- 5446 15 Mar, 2014 [facility] [place] [facility] [address] [id number] [place] [address]- 7952 15 Mar, 2014 [facility] [place] [facility] [address] [id number] [place] [address]- 6854 15 Mar, 2014 [facility] [place] [facility] [address] [id number] [place] [address]- 9048 15 Mar, 2014 [facility] [place] [facility] [address] [id number] [place] [address]- 2101 Feb, [facility] [place] [facility] [address] [id number] [place] [address]- 7480 Feb, [facility] [place] [facility] [address] [id number] [place] [address]- 7172 14 Jan, 2014 [facility] [place] [facility] [address] [id number] [address]- 3843 14 Jan, 2014 [facility] [place] [facility] [address] [id number] [address]- 6932 09 Dec, 2013 [facility] [place] [facility] [address] [id number] [place] [address]- 5236 Dec, [facility] [place] [facility] [address] [id number] [place] [address]- 1116 15 Nov, 2013 [facility] [place] [facility] [address] [id number] [place] [address]- 6697 15 Nov, 2013 [facility] [place] [facility] [address] [id number] [place] [address]- 9295 14 Oct, 2013 [facility] [place] [facility] [address] [id number] [place] [address]- 3443 14 Oct, 2013 [facility] [place] [facility] [address] [id number] [place] [address]- 5584 Oct, [facility] [place] [facility] [address] [id number] [place] [address]- 7644 Oct, [facility] [place] [facility] [address] [id number] [place] [address]- 5277 Sep, [facility] [place] [facility] [address] [id number] [place] [address]- 3604 Sep, [facility] [place] [facility] [address] [id number] [place] [address]- 8297 August, [facility] [place] [facility] [address] [id number] [place] [address]- 8857 August, [facility] [place] [facility] [address] [id number] [place] [address]- 3284 Jul, [facility] [place] [facility] [address] [id number] [place] [address]- 1026 Jul, [facility] [place] [facility] [address] [id number] [place] [address]- 9680 May, [facility] [place] [facility] [address] [id number] [place] [address]- 2858 May, [facility] [place] [facility] [address] [id number] [place] [address]- 6984 Apr, [facility] [place] [facility] [address] [id number] [place] [address]- 5187 Apr, [facility] [place] [facility] [address] [id number] [place] [address]- 5954 Apr, [facility] [place] [facility] [address] [id number] [place] [address]- 3825 Apr, [facility] [place] [facility] [address] [id number] [place] [address]- 4537 Apr, [facility] [address] [id number] [place] [address]- 0673 Jan, [facility] [address] [id number] [place] [address]- 2566 Jan, [facility] [place] [facility] [address] [id number] [place] [address] 2547 Nov, [facility] [address] [id number] [place] [address]- 6304 Oct, [facility] [address] [id number] [place] [address]- 8016 August, [facility] [address] [id number] [place] [address]- 5568 Jul, [facility] [address] [id number] [place] [address]- 5651 Jul, [facility] [address] [id number] [place] [address]- 6807 Jul, [facility] [address] [id number] [place] [address]- 7394 Apr, [facility] [address] [id number] [place] [address]- 0475 Apr, [facility] [address] [id number] [address]- 6917 Apr, [facility] [place] [facility] [address] [id number] [place] [address]- 2826 Jan, [facility] [place] [facility] [address] [id number] [place] [address]- 6926 Jan, [facility] [place] [facility] [address] [id number] [place] [address]- 2929 Dec, [facility] [address] [id number] [address]- 9906 Oct, [facility] [address] [address]- 6903 Jul, [facility] [address] [address]- 1076 Jul, [facility] [address] [address] 2546 Jul, [facility] [address] [address]- 0326 Jun, [facility] [address] [address]- 9340 Mar, [facility] [address] [address]- 8808 Mar, [facility] [address] [address]- 8141 Feb, [facility] [address] [address]- 0096 Feb, [facility] [address] [address]- 0823 Mar, [facility] [address] [address]- 3723 Feb, [facility] [address] [address]- 8460 Feb, [facility] [id number] [address]- 8377 Feb, [facility] [address] [address]- 4610 Jan, [facility] [address] [address] 2840 Jan, IMMUNIZATIONS No Known Immunizations SOCIAL HISTORY Never Assessed REASON FOR VISIT mabel weller-10/07/17. PLAN OF CARE VITAL SIGNS MEDICATIONS Medication Instructions Dosage Frequency Start Date End Date Duration Status Alprazolam 1 MG Orally 4 times a day PRN 1 tablet 30 days Active Celexa 20 mg Orally Once a day 1.5 tablet 24h 30 days Active Ambien 10 mg Orally [...] childbirth Hospitalization History ECT treatments x 20, [facility] inpatient psychiatric about x 4 Hospitalization History stroke hospitalized for two nights 11/2016
--- OUTSIDE RECORDS SUMMARY | 2017-12-19 03:38 | XMS REPORT | Continuity of Care Document ---
Author Author [facility] Organization [facility] Address Unknown Phone Unavailable Allergies Active Description Code Type Severity Reaction Onset Reported/Identified Relationship to Patient Clinical Status Yes TETRACYCLINE [id number] DRUG N/A N/A Yes tetracycline Drug Allergy 03/03/2011 Yes tetracycline Drug Allergy N/ A N/A 03/03/2011 Yes tetracycline [id number] Drug Allergy Mild N/A 11/24/2017 Medications There is no data. Problems Date Dx Coded Attending Type Code Diagnosis Diagnosed By 02/07/2010 MARIS LESLIE APRN 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 02/07/2010 AMRIS LESLIE APRN 300.02 AN GEN ANXIETY 02/07/2010 [...] APRN V58.69 MEDICATION HIGH RISK 08/12/2012 TAYLOR SCANNER OPERATOR, JOHN V58.69 MEDICATION HIGH RISK 08/12/2012 TAYLOR [...] NEOPLASM OF IDRIS 01/03/2016 JOSTIN ANU Head SCANNER OPERATOR Ot R51 HEADACHE 01/04/2016 ANU FRANKEL SCANNER OPERATOR Ot R51 HEADACHE 01/25/2016 ANU FRANKEL SCANNER OPERATOR Ot R51 HEADACHE 01/30/2016 ANU FRANKEL SCANNER OPERATOR Ot R51 HEADACHE 02/08/2016 Ot 780.2 SYNCOPE [...] MAMMO-MALIGN NEOPLASM OF IDRIS 02/08/2016 ANU FRANKEL SCANNER OPERATOR Ot R51 HEADACHE 02/08/2016 JOSUE NAVARRO, IRA [...] MD, Ot I25.10 ATHSCL HEART DISEASE OF [place] CORONARY 11/07/2016 WAYNE AVILA MD, Ot I85.00 [...] 11/07/2016 WAYNE AVILA MD, Ot Z79.899 OTHER LEGAL RECRUITER (CURRENT) DRUG THERAPY 11/11/2016 WAYNE AVILA MD, Ot E78.5 HYPERLIPIDEMIA, UNSPECIFIED 11/11/2016 WAYNE AVILA MD Ot F32.9 MAJOR DEPRESSIVE DISORDER, SINGLE EPISOD 11/11/2016 WAYNE AVILA MD Ot I10 ESSENTIAL (PRIMARY) HYPERTENSION 11/11/2016 WAYNE AVILA MD, Ot I25.10 ATHSCL HEART DISEASE OF [place] CORONARY 11/11/2016 WAYNE AVILA MD Ot I85.00 [...] 11/11/2016 WAYNE AVILA MD Ot Z79.899 OTHER LEGAL RECRUITER (CURRENT) DRUG THERAPY 12/16/2016 WAYNE AVILA MD Ot K21.9 GASTRO-ESOPHAGEAL REFLUX DISEASE WITHOUT 12/16/2016 WAYNE AVILA MD Ot R19.7 DIARRHEA, UNSPECIFIED 12/16/2016 AWYNE AVILA MD Ot R63.4 ABNORMAL WEIGHT LOSS [...] MAMMOGRAM FOR MALIGNANT NE 03/24/2017 ANU FRANKEL SCANNER OPERATOR Ot J98.01 ACUTE BRONCHOSPASM 03/24/2017 ANU FRANKEL SCANNER OPERATOR Ot R06.02 SHORTNESS OF BREATH 04/02/2017 ANU FRANKEL SCANNER OPERATOR Ot J98.01 ACUTE BRONCHOSPASM 04/02/2017 ANU FRANKEL SCANNER OPERATOR Ot R06.02 SHORTNESS OF BREATH 10/06/2017 FREDA [...] MAMMO-MALIGN NEOPLASM OF IDRIS 10/06/2017 ANU FRANKEL SCANNER OPERATOR Ot R51 HEADACHE 10/06/2017 WAYNE AVILA MD Ot K21.9 GASTRO-ESOPHAGEAL REFLUX DISEASE WITHOUT 10/06/2017 WAYNE AVILA MD Ot R19.7 DIARRHEA, UNSPECIFIED 10/06/2017 WAYNE AVILA MD Ot R63.4 ABNORMAL WEIGHT LOSS 10/06/2017 WAYNE AVILA MD Ot Z98.0 INTESTINAL BYPASS AND ANASTOMOSIS STATUS 10/06/2017 BRANDY LANGE MD Ot N64.4 MASTODYNIA 10/06/2017 BRANDY LANGE MD Ot Z12.31 ENCNTR SCREEN MAMMOGRAM FOR MALIGNANT NE 10/06/2017 ANU FRANKEL SCANNER OPERATOR Ot J98.01 ACUTE BRONCHOSPASM 10/06/2017 ANU FRANKEL SCANNER OPERATOR Ot R06.02 SHORTNESS OF BREATH 10/09/2017 VARSHA [...] Procedures Code Description [place] [address] EKG, TRACING (IN-HOUSE) 08/18/2012 Results Test Result Range Methicillin resistant Staphylococcus aureus (MRSA) screening culture - 15:00 Methicillin resistant Staphylococcus aureus (MRSA) screening culture NEG NRG [id number] - 10/08/17 12:18 Serum or plasma urea [...] Staphylococcus aureus (MRSA) screening culture NEG NRG Bacteria identification in isolate by anaerobe culture - 12/09/17 12:44 Bacteria identification in isolate by anaerobe culture NOANA NRG Gram stain microscopy - 12/09/17 12:44 Gram stain microscopy NO BACTERIA SEEN NRG Bacteria identification in wound by culture - 12/09/17 12:44 Bacteria identification in wound by culture [id number] NRG FREE TEXT EXTERNAL MANY NRG QUANTITY OF GROWTH . NRG RML Sensitivity Panel - 12/09/17 12:44 Gentamicin susceptibility test by minimum inhibitory concentration > NRG Trimethoprim/sulfamethoxazole susceptibility test by minimum inhibitoryconcentration R NRG Levofloxacin susceptibility test by minimum inhibitory concentration > NRG Ampicillin susceptibility test by minimum inhibitory concentration > NRG Cefazolin susceptibility test by minimum inhibitory concentration 2 NRG Ceftriaxone susceptibility test by minimum inhibitory concentration <= NRG Piperacillin/tazobactam susceptibility test by minimum inhibitory concentration S NRG Ciprofloxacin susceptibility test by minimum inhibitory concentration > NRG Meropenem susceptibility test by minimum inhibitory concentration < = NRG Amoxicillin and clavulanate potassium susc LARRY = NRG Imipenem susceptibility test by minimum inhibitory concentration < NRG Bacterial urine culture - 12/11/17 06:42 Bacterial urine culture NG NRG Automated blood complete blood count (hemogram) panel - 12/11/17 10:50 Blood leukocytes automated count (number/volume) 13.5 10*3/uL 4.3-11.0 Blood erythrocytes automated count (number/volume) 3.29 10*6/uL 4.35-5.85 Venous blood hemoglobin measurement (mass/volume) 9.6 g/dL 11.5-16.0 Blood hematocrit (volume fraction) 28 % 35-52 Automated erythrocyte mean corpuscular volume 86 [foz_us] 80-99 Automated erythrocyte mean corpuscular hemoglobin (mass per erythrocyte) 29 pg 25-34 Automated erythrocyte mean corpuscular hemoglobin concentration measurement ( mass/volume) 34 g/dL 32-36 Automated erythrocyte distribution width ratio 14.3 % 10.0-14.5 Automated blood platelet count (count/volume) 399 10*3/uL 130-400 Automated blood platelet mean volume measurement 9.1 [foz_us] 7.4-10.4 Encounters ACCT No. Visit Date/Time Discharge Status Pt. Type Provider Facility Loc./Unit Complaint [id number] 09/30/2017 14:18:45 09/30/2017 23:59:59 CLS Outpatient Ricky Donato [id number] 09/24/2017 13:54:13 09/24/2017 23:59:59 CLS Outpatient Ricky Donato [id number] 08/23/2017 14:25:47 08/23/2017 23:59:59 CLS Outpatient Dave Siddiqui [id number] 08/14/2017 18:00:50 08/14/2017 23:59:59 CLS Outpatient Zarina Tafoya [id number] 08/03/2017 18:05:16 08/03/2017 23:59:59 CLS Outpatient SelamKamlesh [id number] 06/11/2017 18:05:29 06/11/2017 23:59:59 CLS Outpatient Zarina Tafoya [id number] 05/25/2017 18:12:58 05/25/2017 23:59:59 CLS Outpatient SelamKamlesh [id number] 02/15/2017 14:07:34 02/15/2017 23:59:59 CLS Outpatient Zarina Tafoya [id number] 02/13/2017 11:48:13 02/13/2017 23:59:59 CLS Outpatient JuanpabloTravis [id number] 03/26/2015 18:11:34 03/26/2015 23:59:59 CLS Outpatient Tammy, Pj S [id number] 03/02/2015 11:45:05 03/02/2015 23:59:59 CLS Outpatient [place], V S [id number] 08/31/2017 11:40:00 08/31/2017 23:59:59 CLS Outpatient DELMAR [facility] [id number] 09/24/2017 14:55:16 Document Registration [id number] 08/14/2017 19:12:16 Document Registration [id number] 08/14/2017 17:46:26 Document Registration [id number] 06/11/2017 18:31:49 Document Registration [id number] 12/18/2016 10:26:15 Document Registration [id number] 12/09/2016 22:30:57 Document Registration [id number] 12/09/2016 21:35:39 Document Registration [id number] 05/02/2014 11:52:00 05/02/2014 23:59:59 CLS Outpatient JOHN VAZQUEZ APRN [id number] 05/02/2014 11:52:00 05/02/2014 23:59:59 CLS Outpatient JOHN VAZQUEZ APRN [id number] 09/20/2013 14:41:00 09/20/2013 23:59:59 CLS Outpatient MARIS LESLIE APRN [id number] 05/02/2013 16:47:00 05/02/2013 23:59:59 CLS Outpatient MARIS LESLIE APRN [id number] 11/19/2012 12:45:00 11/19/2012 23:59:59 CLS Outpatient MARIS LESLIE APRN [id number] 07/21/2012 12:44:00 07/21/2012 23:59:59 CLS Outpatient ANUJ SCANNER OPERATORMARIS [id number] 04/22/2012 12:46:00 04/22/2012 23:59:59 CLS Outpatient MARIS LESLIE APRN [id number] 08/18/2012 10:20:00 Document Registration [id number] 03/29/2013 13:20:30 ACT Document Registration [id number] 10/08/2017 11:37:00 10/08/2017 23:59:59 CLS Outpatient VARSHA TONEY MD Via [facility] RAD DIFFUSE,ABD PAIN, WT LOSS [id number] 03/04/2017 11:49:00 03/04/2017 23:59:59 CLS Outpatient ANU FRANKEL APRN [facility] RAD SOB [id number] 02/12/2017 12:58:00 02/12/2017 23:59:59 CLS Outpatient BRANDY LANGE MD [facility] RAD SCREENING [id number] 11/18/2016 08:30:00 11/18/2016 23:59:59 CLS Outpatient WAYNE AVILA MD [facility] RAD DIARRHEA,GERD,WT LOSS [id number] 11/07/2016 12:17:00 11/07/2016 14:30:00 DIS Outpatient WAYNE AVILA MD [facility] ENDO CHANGE IN BOWEL HABITS, WT LOSE AND ABDOMINAL PAIN [id number] 11/05/2016 05:40:00 11/05/2016 14:35:00 DIS Outpatient WAYNE AVILA MD [facility] PREOP CHANGE IN BOWEL HABITS , WEIGHT LOSS AND ABD PAIN [id number] 07/30/2016 06:25:00 07/30/2016 09:57:00 DIS Outpatient MARTHA FORRESTER MD [facility] MACROPLASTIQUE [id number] 07/21/2016 14:47:00 07/21/2016 15:02:00 DIS Outpatient MARTHA FORRESTER MD [facility] PREOP MACROPLASTIQUE [id number] 02/08/2016 07:24:00 02/08/2016 08:34:00 DIS Outpatient IRA SALAS MD [facility] CARD SPONDYLOSIS [id number] 01/03/2016 09:24:00 01/03/2016 23:59:59 CLS Outpatient ANU FRANKEL APRN [facility] RAD HEADACHES,CHANGE IN LOC [id number] 03/29/2013 12:52:00 06/27/2013 00:01:00 DIS Outpatient BRANDY LANGE MD [facility] CARD SYNCOPE,PALPITATIONS, [id number] 05/10/2013 10:45:00 05/10/2013 18:15:00 DIS Outpatient DANAE NAVARRO FACC, CARLOS REYEZ CCDS [facility] CATH CP,DYSPNEA, HTN [id number] 05/09/2013 08:35:00 05/09/2013 23:59:59 CLS Outpatient DANAE NAVARRO FACC, CARLOS REYEZ CCDS [facility] CARD CP,DYSPNEA [id number] 12/27/2012 06:03:00 12/27/2012 09:35:00 DIS Outpatient HANSEL DPM CALLY Q [facility] SOFT TISSUE LESION LEFT FOOT [id number] 12/23/2012 11:48:00 12/23/2012 23:59:59 CLS Outpatient HANSEL DPM CALLY Q [facility] PREOP SOFT TISSUE LESION LEFT FOOT [id number] 11/27/2012 11:04:00 11/27/2012 23:59:59 CLS Outpatient [id number] 08/25/2012 13:19:00 08/25/2012 23:59:59 CLS Outpatient JONATHAN BARBA MD [facility] RAD LOW BACK PAIN [id number] 12/08/2017 15:15:00 ACT Inpatient WAYNE AVILA MD [facility] 4TH N/V, DEHYRDATION, ABD PAIN [id number] 11/26/2017 08:52:00 Document Registration [id number] 11/24/2017 09:45:00 Document Registration [id number] 01/03/2016 09:24:00 Document Registration [id number] 01/03/2016 09:24:00 Document Registration [id number] 01/03/2016 09:24:00 Document Registration [id number] 07/06/2014 11:20:00 Document Registration [id number] 06/28/2013 13:00:00 Document Registration [id number] 09/08/2011 10:55:00 Document Registration [id number] 08/01/2011 09:00:00 Document Registration [id number] 05/02/2011 08:45:00 Document Registration [id number] 08/16/2010 08:50:00 Document Registration [id number] 08/31/2007 09:19:00 Document Registration
== END 2017-12-16 11:55 | DRG 863 ==
LOC: EDSTATUS 13:40 → 4TH 15:15 → UNDOADMIN 15:15 → 4TH 15:37 → OBSVTOIN 12-09 09:45 → 4TH 12-11 01:05 → UNDODISIN 12-16 11:55
PROVIDERS: ADMIT Surgery; ATTEND Surgery
PROC: 0W9G3ZX Drainage of Peritoneal Cavity, Percutaneous Approach, Diagnostic (ICD-10-PCS; principal; 2017-12-09)
DX: T81.4XXA Infection following a procedure, initial encounter (principal); E87.1 Hypo-osmolality and hyponatremia; B96.20 Unspecified Escherichia coli [E. coli] as the cause of diseases classified elsewhere; F11.20 Opioid dependence, uncomplicated; K91.89 Other postprocedural complications and disorders of digestive system; E86.0 Dehydration; I85.00 Esophageal varices without bleeding; K56.7 Ileus, unspecified; K59.09 Other constipation; K21.9 Gastro-esophageal reflux disease without esophagitis; I10 Essential (primary) hypertension; F41.9 Anxiety disorder, unspecified; E87.6 Hypokalemia; I25.10 Atherosclerotic heart disease of native coronary artery without angina pectoris; F32.9 Major depressive disorder, single episode, unspecified; E78.00 Pure hypercholesterolemia, unspecified; D72.829 Elevated white blood cell count, unspecified; M54.5 Low back pain; R41.3 Other amnesia; D64.9 Anemia, unspecified; J30.2 Other seasonal allergic rhinitis; M19.91 Primary osteoarthritis, unspecified site; Z87.442 Personal history of urinary calculi; Z86.73 Personal history of transient ischemic attack (TIA), and cerebral infarction without residual deficits
CPT/HCPCS: 36415; 71045; 74177; 77012; 80048; 80053; 81000; 82565; 84520; 85025; 85027; 85610; 85730; 87040; 87070; 87075; 87077; 87088; 87186; 87205; 99156; G0378